=== PATIENT | male | born 1955 | race Caucasian/White ===

== ENCOUNTER 2024-10-01 03:10 | Emergency (ER) | payer MEDICARE, SELFPAY ==
[2024-10-01 03:11] VITALS: PULSE 106
--- NOTE | 2024-10-01 03:13 | EDNOTE_ITS ---
Neuro Symptoms Deficit-RME/HPI General Chief Complaint: Syncope / Near Syncope Stated Complaint: possible syncopal episode Time Seen by Provider: 10/01/24 03:14 Arrival date/time: 10/01/24 03:10 RME / HPI RME / HPI Narrative: Dr. Ambrose?s Main ED Evaluation: 68yo male [place] from home presents to the ED after being found down by his . Per EMS, patient was last seen at 2300, reporting the went to go check on the patient and found him on the ground outside. Patient states he does not remember what happened. Patient is a poor historian and is unable to provide any history. Related Data Allergies Allergy/AdvReac Type Severity Reaction Status Date / Time No Known Allergies Allergy Verified 10/01/24 03:40 Review of Systems Review of Systems Systems Reviewed: All systems reviewed, normal except as documented Past Medical History Social History SMOKING STATUS: Never smoker ED Exam Narrative Physical exam: GENERAL APPEARANCE: alert and oriented x 3, has difficulty following commands and sometimes is unable to follow them at all; has repetitive questions and amnesia of the incident, gives 1-2 word answers, no acute distress VITALS: All vitals were reviewed and the pulse ox is 95% on room air, which is normal according to my interpretation. HEENT: Normocephalic, atraumatic; pupils equal, round, reactive to light; EOMI; no nystagmus; mucous membranes pink, moist; oropharynx clear NECK: Supple LUNGS: CTABL; no wheezes, no rales, no rhonchi HEART: Regular rate, regular rhythm; normal S1, S2; no murmurs ABDOMEN: non distended; normal BS; soft, no tenderness, no guarding, no rebound; no masses, no organomegaly, no hernia BACK: no CVA tenderness EXTREMITIES: atraumatic; no edema NEUROLOGIC: awake; alert and oriented x4; cranial nerves II-XII grossly intact; mild weakness of the LLE and LUE; no facial droop PSYCHIATRIC: appropriate mood and affect SKIN: warm, dry, normal color; no rashes Course Course Course Narrative: CXR is ordered to r/o pneumothorax. Quality Measures Suspected type of Stroke: Hemmorrhagic Tenecteplase given: Reason(s) TPA not given: Unable to determine eligibility not given stroke Orders Category Date Time Status Bedside Blood Glucose NOW Care 10/01/24 03:15 Completed Electronic Systems Security Assessment NOW Care 10/01/24 03:15 Completed Continuous Pulse Oximetry NOW Care 10/01/24 03:15 Completed EKG (ED ONLY) *Do not use* NOW Care 10/01/24 03:15 Completed In and Out Catheter NEEDED Care 10/01/24 03:15 Completed Insert IV NOW Care 10/01/24 03:15 Completed Miscellaneous Nursing Order NOW Care 10/01/24 03:16 Completed NIH Stroke Scale now Care 10/01/24 03:15 Completed NPO NOW Care 10/01/24 03:15 Completed Nurse Swallow Screen x1 Care 10/01/24 03:15 Completed Consult to Neurology / Tele-Neurology Routine Cons 10/01/24 03:[address] stroke protocol Stat Exams 10/01/24 03:15 Taken EKG (ED Only) Stat Exams 10/01/24 03:15 Ordered XR chest 1V portable Stat Exams 10/01/24 03:16 Taken Alcohol, Blood Medical Stat Lab 10/01/24 03:44 Completed B-Type Natriuretic Peptide Stat Lab 10/01/24 03:44 Completed CBC Stat Lab 10/01/24 03:44 Completed Comprehensive Metabolic Panel Stat Lab 10/01/24 03:44 Completed Magnesium Stat Lab 10/01/24 03:44 Completed Partial Thromboplastin Time Stat Lab 10/01/24 03:44 Completed Prothrombin Time with INR Stat Lab 10/01/24 03:44 Completed Troponin I Stat Lab 10/01/24 03:44 Completed Oxygen Delivery NOW RT 10/01/24 03:15 Completed Vital Signs Vital signs: Vital Signs Pulse Rate 90 10/01/24 03:25 Respiratory Rate 17 10/01/24 03:25 Blood Pressure 128/76 10/01/24 03:25 Pulse Oximetry (%) 100 10/01/24 03:25 Oxygen Delivery Method Room Air 10/01/24 03:25 Neuro Symptoms / Deficit MDM Narrative MDM Narrative:: Scribe Attestation: 10/01/24 Almita Hercules am scribing for and in the presence of Dr. Ambrose. 0313: Stroke alert initiated. 0332: Discussed case with teleneurology regarding consultation at bedside. Discussed patients ED course, exam findings, and radiology results. States to keep the patient's blood pressure below 140 systolically. The patient is not a tPA candidate due to having a bleed. 0338: Spoke with [facility] transfer center, who states to call Dr. Jeffery, the neurosurgeon, and see if he will accept the patient for transfer. 0342: Spoke with Dr. Jeffery, neurosurgeon on-call, who accepts the patient for transfer. Dr. Trevizo accepts the patient for ED-ED transfer. Patient data External records reviewed:: [facility] previous records (Per chart review, patient has no previous ED visits or admissions to this facility.) Clinical information provided by:: patient Social determinants that could affect healthcare access:: none Patient has the following chronic illnesses:: none How is presenting disease/condition affected by chronic disease/condition?: no chronic disease Evaluation data The following diagnostics were reviewed and interpreted by me:: lab results, radiology exam(s) and EKG tracing(s) Lab and/or radiology exams considered but not ordered:: none Interpretation Summary: CXR shows cardiomegaly, no bony abnormalities, no infiltrates, according to my interpretation. EKG done at 0332, NSR, rate of 82, left axis deviation, no ectopy, no acute ischemia, according to my interpretation. Telerad Preliminary Report Draft Patient: ALEJANDRO VAZQUEZ Record#: [id number] Birthdate: 1955 Age/Sex: 68 / M Location: [facility] Attending Dr: Ordering Physician: Date of Service: Procedure(s): Accession Number(s): cc: ~ CT scan of the head without intravenous contrast (axial sections with sagittal and coronal reformats) October 01, 2024 0318 hours Clinical history: Focal neuro deficit, stroke suspected No prior study is available for comparison. Findings: There is an acute subdural hematoma along right anterior falx measuring up to 2.4 cm in maximum thickness with extension to contralateral side. There is a 1.2 x 2.5 cm frontal lobe hematoma (sag 24-/46) with compression of anterior horns of bilateral lateral ventricles. There is intraventricular extension of hemorrhage. Multiple small right frontal lobe hemorrhagic contusions with small right frontal subdural hematoma noted. A 3 mm acute subdural hematoma is noted along posterior falx. There is an acute subarachnoid hemorrhage in the bilateral frontal sulci. There is no evidence of midline shift. There are mild periventricular white matter hypodensities, likely representing chronic small vessel ischemia. There is mild volume loss. There is symmetrical thinning of the bilateral parietal bones versus less likely postoperative changes. The mastoid air cells and the visualized paranasal sinuses are grossly clear. Impression: Acute subdural hematoma along right anterior falx measuring up to 2.4 cm in maxi mum thickness with extension to contralateral side. 1.2 x 2.5 cm frontal lobe hematoma with compression of anterior horns of bilateral lateral ventricles. Multiple small right frontal lobe hemorrhagic contusions with small right frontal subdural hematoma. Intraventricular extension of hemorrhage. 3 mm acute subdural hematoma along posterior falx. Acute subarachnoid hemorrhage at bilateral frontal sulci. Symmetrical thinning of the bilateral parietal bones versus less likely postoperative changes.. Periventricular chronic small vessel ischemia and volume loss. Recommend clinical correlation and follow-up. Discussion Details: Results Discussed With : Dr Ambrose at 03:45 AM 10/01/2024 Report Electronically Signed By: Calvin Morales 10/01/2024 4:02:24 AM Medications / Prescriptions Medications or Prescriptions considered but not ordered:: none Medication administrations:: see above, if any Consultations Consultation(s) initiated? (list below): Yes Consultation #1 (Physician, Specialty, Details): See MDM. Diagnosis Neuro Differential Diagnosis: subarachnoid hemorrhage and other (ischemic CVA, subdural hematoma, hemorrhagic stroke) Most likely diagnosis given after review of the tests above:: see clinical impression below Admission Indicated Admission indicated?: not indicated Explain why admission is indicated or not indicated:: Patient requires a higher [id number]. Admission Request Was there a request for admission?: No Disposition Plan Disposition Plan: Transfer Critical Care Time Critical Care Time Critical Care Time: Yes Total Critical Care Time (min.): 40 Attestation: The high probability of sudden, clinically significant deterioration in the patient?s condition required the highest level of my preparedness to intervene urgently. The services I provided to this patient were to treat and/or prevent clinically significant deterioration. Services included the following: chart data review, reviewing nursing notes and/or old charts, documentation time, jd edwards consultant collaboration regarding findings and treatment options, medication orders and management, direct patient care, vital sign assessments and ordering, interpreting and reviewing diagnostic studies and lab tests. Aggregate critical care time includes only time during which I was engaged in work directly related to the patient?s care, as described above, whether at bedside or elsewhere in the Emergency Department. It did not include time spent performing other reported procedures or the services of residents, students, nurses or physician assistants. Discharge Plan Plan Patient Disposition: [facility] Pt Being Transferred to: [facility] Service Needed for Transfer: Neurosurgery Disposition Comment: Accepted by Dr. Jeffery Problem List Clinical Impression: Intraparenchymal hemorrhage of brain Patient/Caregiver Discharge Instructions Print Language: Bulgarian Stand Alone Forms: Meagan Award Info., Patient Portal Info Letter
--- NOTE | 2024-10-01 03:15 | PC.NURSE ---
PT CAME TO ER FROM HOME BY AMBULANCE, EMS REPORTED THAT PT HAD SYNCOPAL EPISODE, INFORMED EMS THAT PT WAS WORKING ON HIS CAR OUTSIDE, LAST TIME WELL KNOWN IS 2329, PT GOT AT AMBULANCE BAY ,EMS WAS CONCERNED ABOUT PT ARM MOVEMENT, DR. ROBERSON NOTIFIED, STROKE ALERT CALLED. PT IS AWAKE,ALERT,AND RESPONSIVE, NO FACIAL DROOP NOTIFIED. EMS TOOK PT STRAIGHT TO CT WITH RN.
--- NOTE | 2024-10-01 03:15 | XR_ITS ---
Examination: CT brain head without contrast. 2-D sagittal coronal reconstructions Date and time of exam:October 01, 2024 0318 hours INDICATIONS: Patient found down unconscious today with syncopal episode CTDI: vol (mGy):48.6 DLP: (mGycm):1057 Technique: Multiple CT axial sections of the brain have been obtained, 5 mm slice thickness. Contrast has not been administered. 2-D sagittal, coronal reconstructions have been obtained Low dose protocols were performed. One or more of the following dose reduction techniques were used; automated exposure control, adjustment of the mA and/or KV according to patient size, use of iterative reconstruction technique. Findings: Acute subdural hematoma anterior right cerebral falx measuring up to 25 mm in thickness 24 mm right frontal hematoma Hemorrhages ruptured into the ventricular system Smaller bifrontal hemorrhagic contusions Significant mass effect upon the lateral ventricles, axial image 20 secondary to the subdural hemorrhage Smaller subdural hemorrhage along the posterior cerebral falx Subarachnoid hemorrhage frontal sulci Bilateral posterior craniotomy defects No cerebellar tonsillar herniation IMPRESSION: Large acute subdural hematoma anterior cerebral falx as above with significant mass effect Large right frontal hematoma impinging upon the lateral ventricles Extensive intraventricular hemorrhage Subarachnoid hemorrhage frontal sulci
--- NOTE | 2024-10-01 03:16 | XR_ITS ---
Examination: AP chest single view Technique one AP portable supine chest single view Exam date and time: October 01, 2024 0331 hours INDICATIONS: Stroke alert, syncopal episode today. FINDINGS: Mild prominence left ventricle Suspicious for mild pneumonia left base Right lung clear Reduced inspiratory effort IMPRESSION: Suspicious for mild pneumonia left base, differential would include mild aspiration pneumonia
[2024-10-01 03:25] VITALS: BP 128/76; PULSE 90; RESP 17; O2SAT 100
[2024-10-01 03:42] VITALS: RESP 99
[2024-10-01 03:44] VITALS: BP 121/76; PULSE 85; RESP 20; TEMP 36.7; O2SAT 100
[2024-10-01 03:54] LABS: Basophils % (Auto) 0 % (0-2.5); Eosinophils % (Auto) 0 % (0-10); Hematocrit 42.3 % (41.0-53.0); Hemoglobin 14.8 g/dL (13.5-16.0); Immature Granulocytes % (Auto) 0 % (0-0); Immature Granulocytes Auto 0.06 Thou/mm3 (0.00-0.00); Lymphocytes # (Auto) 0.5 Thou/mm3 (1.0-4.8); Lymphocytes % (Auto) 4 % (10-50); Mean Corpuscular Hemoglobin 30.6 pg (25.0-35.0); Mean Corpuscular Volume 88 fL (80-100); Monocytes # (Auto) 0.5 Thou/mm3 (0.0-0.8); Monocytes % (Auto) 3 % (0-12); Neutrophils # (Auto) 13.7 Thou/mm3 (1.8-7.7); Neutrophils % (Auto) 93 % (37-80); Nucleated Red Blood Cell % 0 /100 WBC (0); Platelet Count 158 Thou/mm3 (140-440); RDW Standard Deviation 41.1 fL (35.1-43.9); Red Blood Count 4.83 Miln/mm3 (4.50-5.90); White Blood Count 14.8 Thou/mm3 (3.8-10.6)
--- NOTE | 2024-10-01 03:58 | PC.NURSE ---
[facility] FROM [facility] CALLED AND THIS PT IS ACCEPTED FOR TRANSPORT WITH A ETA OF 0440.
--- NOTE | 2024-10-01 04:03 | PRELIM_ITS ---
CT scan of the head without intravenous contrast (axial sections with sagittal and coronal reformats) October 01, 2024 0318 hours Clinical history: Focal neuro deficit, stroke suspected No prior study is available for comparison. Findings: There is an acute subdural hematoma along right anterior falx measuring up to 2.4 cm in maximum thickness with extension to contralateral side. There is a 1.2 x 2.5 cm frontal lobe hematoma (sag 24-26/46) with compression of anterior horns of bilateral lateral ventricles. There is intraventricular extension of hemorrhage. Multiple small right frontal lobe hemorrhagic contusions with small right frontal subdural hematoma noted. A 3 mm acute subdural hematoma is noted along posterior falx. There is an acute subarachnoid hemorrhage in the bilateral frontal sulci. There is no evidence of midline shift. There are mild periventricular white matter hypodensities, likely representing chronic small vessel ischemia. There is mild volume loss. There is symmetrical thinning of the bilateral parietal bones versus less likely postoperative changes. The mastoid air cells and the visualized paranasal sinuses are grossly clear. Impression: Acute subdural hematoma along right anterior falx measuring up to 2.4 cm in maximum thickness with extension to contralateral side. 1.2 x 2.5 cm frontal lobe hematoma with compression of anterior horns of bilateral lateral ventricles. Multiple small right frontal lobe hemorrhagic contusions with small right frontal subdural hematoma. Intraventricular extension of hemorrhage. 3 mm acute subdural hematoma along posterior falx. Acute subarachnoid hemorrhage at bilateral frontal sulci. Symmetrical thinning of the bilateral parietal bones versus less likely postoperative changes.. Periventricular chronic small vessel ischemia and volume loss. Recommend clinical correlation and follow-up. Discussion Details: Results Discussed With : Dr Ambrose at 03:45 AM 10/01/2024 Report Electronically Signed By: Calvin Morales 10/01/2024 4:02:24 AM [EST]
[2024-10-01 04:13] LABS: Alanine Aminotransferase 19 U/L (10-49); Albumin, Serum 4.3 gm/dL (3.4-4.8); Albumin/Globulin Ratio 1.7 (1.2-2.2); Alcohol, Blood Medical < 3.0 mg/dL (0-10.0); Alkaline Phosphatase 90 U/L (46-116); Anion Gap 8 (7-16); Aspartate Amino Transferase 22 U/L (0-34); BUN/Creatinine Ratio 15 Ratio (12-20); Bilirubin,Total 0.7 mg/dL (0.3-1.2); Blood Urea Nitrogen 19 mg/dL (9-23); Calcium 9.2 mg/dL (8.3-10.6); Calcium (Corrected) 9.2 mg/dL (8.5-10.1); Carbon Dioxide 24.6 mMol/L (20.0-31.0); Chloride 106 mMol/L (98-107); Creatinine (Component) 1.3 mg/dL (0.6-1.3); Globulin 2.6 gm/dL (2.3-3.5); Glucose 132 mg/dL (74-106); Magnesium 1.6 mg/dL (1.6-2.6); Osmolality,Calculated 281 (275-295); Potassium 4.2 mMol/L (3.4-5.1); Sodium 139 mMol/L (136-145); Total Protein 6.9 gm/dL (5.7-8.2); Troponin I < 0.002 ng/mL (0.0-0.045); eGFR 60 See Note
--- NOTE | 2024-10-01 04:14 | ESCONSULT_ITS ---
Tele Neuro Consultation Consultation Date 10/01/24 Most Recent Vital Signs Last Vital Signs Temp 98.0 F 10/01/24 03:44 Pulse 85 10/01/24 03:44 Resp 20 10/01/24 03:44 BP 121/76 10/01/24 03:44 Pulse Ox 100 10/01/24 03:44 O2 Del Method Room Air 10/01/24 03:44 Consultation Narrative [facility] Tele[facility]urology Consult Services Patient Name:???Roc Akhtar Date of :???1955 Identification Number:??? Date of Service:???10/01/2024 03:15:31 Diagnosis:?I61.9 - Intracerebral haemorrhage, unspecified Impression: 68 yo man presenting for evaluation of a fall with some confusion and gene ralized weakness. Found to have a frontal hemorrhage with IVH. Agree with transfer for neurosurgery consultation. Keep BP less than [address] on q1h neurochecks and repeat head CT in 4-6 hours or sooner if he worsens. Recommendation: Laboratory Studies:? INR/PT ? aPTT? CBC Medications:? Hold?antiplatelet?therapy/NSAIDS/Anticoagulation Consultations: ? Need Neurosurgery consultation?STAT Metrics: Last Known Well: 10/01/2019 23:00:00 Dispatch Time: 10/01/2024 03:14:32 Arrival Time: 10/01/2024 03:11:00 Initial Response Time: 10/01/2024 03:18:38Symptoms: weakness. Initial patient interaction: 10/01/2024 03:34:42 NIHSS Assessment Completed: 10/01/2024 03:37:24Patient is not a candidate for Thrombolytic. Thrombolytic Medical Decision: 10/01/2024 03:37:26Patient was not deemed ca ndidate for Thrombolytic because of following reasons: Current intracranial hemorrhage . = Primary Provider Notified of Diagnostic Impression and Management Plan on: 10/01/2024 03:37:00 History of Present Illness:Patient is a 68 year old Male. Patient was brought by EMS for symptoms of weakness. This is a 68 yo man with history of hypertension who presents after his found him after a fall outside. He had been working in his garage on his cars. She last saw him normal at 18:00. When she came home around 23:00, he was still in the garage but seemed off . She later found him a few hours later and called EMS. On head CT, he has what appears to be a frontal hemorrhage with bilateral IVH. ? Past Medical History: ?Hypertension Medications: No Anticoagulant use? No Antiplatelet use Reviewed EMR for current medications Allergies:? NKDA Social History: Patient Is: Smoking: No Family History: There is no family history of premature cerebrovascular disease pertinent to this consultation ROS : 14 Points Review of Systems was performed and was negative except mentioned in HPI. Past Surgical History: There Is No Surgical History Contributory To Today?s Visit ? Examination: BP(128/76),?Pulse(104),?Blood Glucose(119) 1A: Level of Consciousness - Alert; keenly responsive?+ 0 1B: Ask Month and Age - Both Questions Right?+ 0 1C: Blink Eyes & Squeeze Hands - Performs Both Tasks?+ 0 2: Test Horizontal Extraocular Movements - Normal?+ 0 3: Test Visual Kramer - No Visual Loss?+ 0 4: Test Facial Palsy (Use Grimace if Obtunded) - Normal symmetry?+ 0 5A: Test Left Arm Motor Drift - No Drift for 10 Seconds?+ 0 5B: Test Right Arm Motor Drift - No Drift for 10 Seconds?+ 0 6A: Test Left Leg Motor Drift - No Drift for 5 Seconds?+ 0 6B: Test Right Leg Motor Drift - No Drift for 5 Seconds?+ 0 7: Test Limb Ataxia (FNF/Heel-Silva) - No Ataxia?+ 0 8: Test Sensation - Normal; No sensory loss?+ 0 9: Test Language/Aphasia - Normal; No aphasia?+ 0 10: Test Dysarthria - Normal?+ 0 11: Test Extinction/Inattention - No abnormality?+ 0 NIHSS Score:?0 ICH Score: 2 Rinku Coma Score:13-15 (0) Age >= 80:No (0) ICH volume >= 30mL:Yes (+1) Intraventricular hemorrhage:Yes (+1) Infratentorial origin of hemorrhage:No (0) Pre-Morbid Modified Latosha Scale:0 Points = No symptoms at all This consult was conducted in real time using interactive audio and video technology. Patient was informed of the technology being used for this visit and agreed to proceed. Patient located in hospital and provider located at home/office setting. Due to the immediate potential for life-threatening deterioration due to underlying acute neurologic illness, I spent 30 minutes providing critical care. This time includes time for face to face visit via telemedicine, review of medical records, imaging studies and discussion of findings with providers, the patient and/or family. Dr Matthew Norton [facility] For Inpatient follow-up with [facility] physician please call [facility] at . As we are not an outpatient service for any post hospital discharge needs please contact the hospital for assistance. If you have any questions for the [facility] physicians or need to reconsult for clinical or diagnostic changes please contact us via [facility] at . ?
[2024-10-01 04:16] LABS: B-Type Natriuretic Peptide 32 pg/mL (0-100)
[2024-10-01 04:22] VITALS: BP 114/72; PULSE 97; RESP 20; O2SAT 100
[2024-10-01 04:50] LABS: INR 1.1 (0.9-1.3); Partial Thromboplastin Time 21.2 Seconds (22.0-36.0); Prothrombin Time 11.4 Seconds (9.0-12.2)
== END 2024-10-01 04:45 | disposition short-term general hospital (02) ==
LOC: SERX 04:16
PROVIDERS: Emergency Provider Emergency Medicine
DX: S06.5X9A Traumatic subdural hemorrhage with loss of consciousness of unspecified duration, initial encounter (principal); S06.6X9A Traumatic subarachnoid hemorrhage with loss of consciousness of unspecified duration, initial encounter; W19.XXXA Unspecified fall, initial encounter; I10 Essential (primary) hypertension
CPT/HCPCS: 36415; 70450; 71045; 80053; 80307; 80320; 81001; 83735; 83880; 84484; 85025; 85610; 85730; 87086; 93005; 99291; G0480

== ENCOUNTER → 2024-11-20 | Outpatient (CLI) | payer MEDICARE, SELFPAY ==
--- NOTE | 2024-11-20 10:00 | XR_ITS ---
Examination: CT brain head without contrast. 2-D sagittal coronal reconstructions Date and time of exam:November 20, 2024 0943 hours Comparison October 01, 2024 INDICATIONS: CT brain scan August 31, 2024 large acute subdural hematoma anterior cerebral falx, large right frontal hematoma impinging upon the lateral ventricles, extensive intraventricular hemorrhage CTDI: vol (mGy):49 DLP: (mGycm):1106 Technique: Multiple CT axial sections of the brain have been obtained, 5 mm slice thickness. Contrast has not been administered. 2-D sagittal, coronal reconstructions have been obtained Low dose protocols were performed. One or more of the following dose reduction techniques were used; automated exposure control, adjustment of the mA and/or KV according to patient size, use of iterative reconstruction technique. Findings: Bilateral posterior craniotomy defects Large area of encephalomalacia at the prior right frontal hemorrhage site with persistent mass effect upon the anterior right lateral ventricle No interval acute hemorrhage Ventricles are mildly enlarged No midline shift IMPRESSION: Large area of encephalomalacia at the prior right frontal hemorrhage site, with truncation of the anterior right lateral ventricle Recommend CT scan brain post intravenous contrast follow-up to exclude underlying right frontal lobe neoplasm
== END | disposition home or self-care (01) ==
PROVIDERS: PCP Hospitalist; Referring Provider Hospitalist; Visit Provider Hospitalist
DX: G93.89 Other specified disorders of brain (principal)
CPT/HCPCS: 70450

== ENCOUNTER 2024-12-07 15:51 | Inpatient (IN) | payer MEDICARE, SELFPAY ==
[2024-12-07 15:55] VITALS: BP 123/71; PULSE 77; RESP 18; TEMP 37.1; O2SAT 94
[2024-12-07 15:56] VITALS: BMI 24.7
[2024-12-07 16:16] VITALS: PULSE 95; RESP 18; O2SAT 94
--- NOTE | 2024-12-07 16:20 | PD.EDADULT ---
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 He is in a rehab facility currently following his stroke. He apparently has an appointment with the wound care doctor on . He states his pain is currently a 5/10 but denies need for pain medication.. He denies any fever or chills, nausea or vomiting, dysuria or frequency, abdominal pain, or difficulty with bowel movements. Patient is a full code according to his recent POLST dated 11/02/2024. Related Data Allergies Allergy/AdvReac Type Severity Reaction Status Date / Time No Known Allergies Allergy Verified 10/01/24 03:40 Review of Systems Review of Systems Systems Reviewed: All systems reviewed, normal except as documented Past Medical History Past Medical History CARDIAC: Positive Cardiac Disorders, Myocardial Infarction and Hypertension; Negative Congestive Heart Failure RESPIRATORY: Negative Chronic Obstructive Pulmonary Disease (COPD) GENITOURINARY: Negative Renal Disease ENDOCRINE: Negative Diabetes Mellitus Type 1 or Diabetes Mellitus Type 2 OTHER HISTORY: Negative Autoimmune Disease Family History FAMILY HISTORY: Negative Family Psychiatric Problems, Family Respiratory Disorders, Family Cardiac Disorders, Family Gastrointestinal Problems, Family Cancer, Family Surgery or Family Anesthesia Reaction Social History SMOKING STATUS: Never smoker ED Exam Narrative Physical exam: Alert and oriented, nontoxic-appearing, afebrile, 69-year-old male, no acute distress, denies pain, laying on left side. Vital signs blood pressure 123/71, pulse 77, respirations 18 and nonlabored, temperature 98.8, O2 sat 94% on room air. Lungs are clear, regular rate and rhythm without murmurs, abdomen is soft and nontender. Left buttocks without erythema or skin breakdown. Medial right buttocks with approximate 10 cm x 12 cm area of induration with minimal central fluctuance. Cellulitis noted surrounding area of induration approximately 3 to 4 cm. General Limitations: Present physical limitation (Left-sided deficit due to recent CVA.) Course Course Course Narrative: Initial vital signs blood pressure 123/71, pulse 77, respirations 18 and nonlabored, temp 98.8, O2 sat 94% on room air. Labs reveal an elevated white count of 20.6, normal hemoglobin, mildly low hematocrit of 39.3, low platelet level of 119, ANC elevated at 16.7. CMP reveals a low sodium of 130, normal potassium, chloride, CO2, gap, normal renal function. Glucose is mildly elevated at 132, lactic acid is elevated at 2.3, CRP is elevated at 3.5, procalcitonin is normal at 0.07, AST/ALT are normal. Total bili is normal at 0.6. Patient was given Zosyn 3.375 g IV as well as vancomycin [address] of the abdomen and pelvis with contrast was ordered at 1936 for evaluation of the abscess and to rule out the need for surgical intervention, however by 20:[address] has not been performed. Discussed case with Dr. James, hospitalist for admission. He was in to evaluate the patient and determined he would discuss the case with his attending. After his discussion with his attending, they would like to delay admission until the completion of the CT abdomen and pelvis. Care of patient transferred to Dr. Peres at end of shift. Hospitalist service knows to contact Dr. Peres. Quality Measures Current suspected stage: sepsis Possible source: skin/soft tissue Blood cultures ordered: yes Antibiotic ordered: Yes Pertinent labs: 12/07/24 12/07/24 12/07/24 16:24 16:44 22:25 Lactic Acid 2.3 H mMol/L 1.3 mMol/L (0.4-2.0) (0.4-2.0) Procalcitonin 0.07 ng/ml (0.0-0.49) sepsis (White count 20.6, lactic 2.3, CRP 3.5, procalcitonin 0.07.) Orders Category Date Time Status CT Screening NOW Care 12/07/24 19:[address] Screening X1 Care 12/07/24 19:36 Active Incision & Drainage set up NOW Care 12/07/24 16:27 Active Insert IV NOW Care 12/07/24 16:[address] abdomen pelvis w con Stat Exams 12/07/24 19:36 Completed Blood Culture (Lab) Stat Lab 12/07/24 16:49 Received CBC Stat Lab 12/07/24 16:44 Completed CMP [Comprehensive Metabolic Panel] Stat Lab 12/07/24 16:44 Completed CRP [C-Reactive Protein] Stat Lab 12/07/24 16:44 Completed Lactic Acid [Lactate (Lactic Acid)] Stat Lab 12/07/24 16:24 Completed Lactic Acid, 3 HR Stat Lab 12/07/24 22:25 Completed Procalcitonin Stat Lab 12/07/24 16:44 Completed Wound Culture and Gram Stain Stat Lab 12/07/24 16:28 Ordered Lidocaine 1% 20 ml [Xylocaine 1% 20 ML] Med 12/07/24 16:23 Discontinued 10 ml INFL X1 ONE Piper/Tazo 3.375 gm Premix [Zosyn] Med 12/07/24 16:30 Discontinued 3.375 gm in 50 ml IV X1 Vancomycin/Ns 1 gm Ivpb 200 ml Med 12/07/24 16:29 Discontinued IV X1 Reevaluation(s) Reevaluation #1: Patient is currently receiving his second antibiotic. He was advised of need for admission due to elevated white count, elevated lactic and CRP. Patient will need CT of the abdomen and pelvis with contrast for evaluation of right medial buttocks abscess. 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 He is in a rehab facility currently following his stroke. He apparently has an appointment with the wound care doctor on . He states his pain is currently a 5/10 but denies need for pain medication.. He denies any fever or chills, nausea or vomiting, dysuria or frequency, abdominal pain, or difficulty with bowel movements. Alert and oriented, nontoxic-appearing, 69-year-old male, no acute distress, denies pain, laying on left side. Vital signs blood pressure 123/71, pulse 77, respirations 18 and non-labored, temperature 98.8, O2 sat 94% on room air. Lungs are clear, regular rate and rhythm without murmurs, abdomen is soft and nontender. Left buttocks without erythema or skin breakdown. Medial right buttocks with approximate 10 cm x 12 cm area of induration with minimal central fluctuance. Cellulitis noted surrounding area of induration approximately 3 to 4 cm. Initial vital signs blood pressure 123/71, pulse 77, respirations 18 and nonlabored, temp 98.8, O2 sat 94% on room air. Labs reveal an elevated white count of 20.6, normal hemoglobin, mildly low hematocrit of 39.3, low platelet level of 119, ANC elevated at 16.7. CMP reveals a low sodium of 130, normal potassium, chloride, CO2, gap, normal renal function. Glucose is mildly elevated at 132, lactic acid is elevated at 2.3, CRP is elevated at 3.5, procalcitonin is normal at 0.07, AST/ALT are normal. Total bili is normal at 0.6. Repeat lactic acid is 1.3. Patient was given Zosyn 3.375 g IV as well as vancomycin [address] of the abdomen and pelvis with contrast was ordered at 1936 for evaluation of the abscess and to rule out the need for surgical intervention, however by 21:[address] has not been performed. Discussed case with Dr. James, hospitalist for admission. He was in to evaluate the patient and determined he would discuss the case with his attending. After his discussion with his attending, they would like to delay admission until the completion of the CT abdomen and pelvis. Care of patient transferred to Dr. Peres at end of shift. Hospitalist service knows to contact Dr. Peres. Patient is a full code according to his recent POLST dated 11/02/2024. CT of the abdomen and pelvis with contrast IMPRESSION: Perianal inflammation which extends to the inter gluteal fold with cellulitis primarily the right buttock region, no fluid-filled drainable abscess. Incidental note right hydrocele, consider testicular sonography follow-up Contacted Dr. Bardales for advisement of plan, whether the patient can be discharged back to his rehab facility on oral antibiotics or admitted for IV antibiotics. She indicates the patient needs to be admitted for IV antibiotics. Clinical Information Provided by patient and spouse Medical Records Reviewed detention Meds/Rx Considered, not Ordered None Labs/Rad/Tests considered, not Ordered None Chronic Illness/Social Conditions which may negatively complicate care or outcome(s)-explain: other (Recent traumatic right sided hemorrhagic CVA with left-sided deficits.) EKG EKG not done Lab Interpretation Labs: interpreted by ms Lab(s) interpretation(s): Labs reveal an elevated white count of 20.6, normal hemoglobin, mildly low hematocrit of 39.3, low platelet level of 119, ANC elevated at 16.7. CMP reveals a low sodium of 130, normal potassium, chloride, CO2, gap, normal renal function. Glucose is mildly elevated at 132, lactic acid is elevated at 2.3, CRP is elevated at 3.5, procalcitonin is normal at 0.07, AST/ALT are normal. Total bili is normal at 0.6. Patient was given Zosyn 3.375 g IV as well as vancomycin 1 g IV. Imaging Imaging interpretation: see narrative above Radiology reports / interpretation(s): CT of the abdomen and pelvis with contrast IMPRESSION: Perianal inflammation which extends to the inter gluteal fold with cellulitis primarily the right buttock region, no fluid-filled drainable abscess. Incidental note right hydrocele, consider testicular sonography follow-up Medication Administration(s) Medication Administration History Discontinued Medications Vancomycin/Sodium Chloride (Vancomycin/Ns 1 Gm Ivpb) 200 mls @ 120 mls/hr IV X1 ONE Stop: 12/07/24 18:08 Last Admin: 12/07/24 18:32 Dose: 120 mls/hr Documented By: PRASHANTH Piperacillin/Tazobactam/Dextrose (Zosyn) 3.375 gm in 50 mls @ 100 mls/hr IV X1 ONE Stop: 12/07/24 16:59 Last Infusion: 12/07/24 17:30 Dose: Infused Documented By: Admin: 12/07/24 16:54 Dose: 100 mls/hr Documented By: SAVANNAH Lidocaine HCl (Lidocaine Hcl 1% 20 Ml Vial) 10 ml INFL X1 ONE Stop: 12/07/24 16:24 Last Admin: 12/07/24 16:56 Dose: 10 ml Documented By: SAVANNAH Vancomycin 1 g IV and Zosyn 3.375 g IV Consultations/Discussions re: Management Consult #1: Date/time: 12/07/24 10:49 pm Physician, specialty, service, details: Discussed case with hospitalist, Dr. James. He was in to evaluate the patient and determined he would discuss the case with his attending. After his discussion with his attending, they would like to delay admission until the completion of the CT abdomen and pelvis. Care of patient transferred to Dr. Peres at end of shift. Hospitalist service knows to contact Dr. Peres. Consult #2: Date/time: 12/08/24 12:12 am Physician, specialty, service, details: Contacted Dr. Bardales for advisement of plan, whether the patient can be discharged back to his rehab facility on oral antibiotics or admitted for IV antibiotics. She indicates the patient needs to be admitted for IV antibiotics. Diagnosis Differential diagnosis: Pressure ulcer, abscess w cellulitis, abscess wo cellulitis, fistula Differential dx and/or dx ruled out: Pressure ulcer, abscess without cellulitis Most likely dx, and/or detailed dx discussion: Right medial buttocks abscess with cellulitis.
[2024-12-07 16:48] VITALS: BP 114/61; PULSE 76; RESP 18; TEMP 36.8
[2024-12-07] MEDS: PIPER/TAZO 3.375 GM PREMIX 3.375 GM/50 ML BAG IV (16:54)
[2024-12-07] MEDS: LIDOCAINE HCL 1% 20 ML VIAL 10 ML INFL (16:56)
[2024-12-07 17:04] LABS: Lactate (Lactic Acid) 2.3 mMol/L (0.4-2.0)
[2024-12-07 17:12] LABS: Basophils # (Auto) 0.1 Thou/mm3 (0.0-0.2); Basophils % (Auto) 0 % (0-2.5); Eosinophils # (Auto) 0.0 Thou/mm3 (0.0-0.5); Eosinophils % (Auto) 0 % (0-10); Hematocrit 39.3 % (41.0-53.0); Hemoglobin 14.3 g/dL (13.5-16.0); Immature Granulocytes Auto 1.04 Thou/mm3 (0.00-0.00); Lymphocytes # (Auto) 2.0 Thou/mm3 (1.0-4.8); Lymphocytes % (Auto) 10 % (10-50); Mean Corpuscular HGB Conc 36.4 g/dl (31.0-37.0); Mean Corpuscular Hemoglobin 30.9 pg (25.0-35.0); Mean Corpuscular Volume 85 fL (80-100); Monocytes # (Auto) 0.8 Thou/mm3 (0.0-0.8); Monocytes % (Auto) 4 % (0-12); Neutrophils # (Auto) 16.7 Thou/mm3 (1.8-7.7); Neutrophils % (Auto) 81 % (37-80); Nucleated Red Blood Cell # 0.00 Thou/mm3 (0.00-0.00); Nucleated Red Blood Cell % 0 /100 WBC (0); Platelet Count 119 Thou/mm3 (140-440); RDW Standard Deviation 45.1 fL (35.1-43.9); Red Blood Count 4.63 Miln/mm3 (4.50-5.90); White Blood Count 20.6 Thou/mm3 (3.8-10.6)
[2024-12-07 17:33] LABS: Alanine Aminotransferase 48 U/L (10-49); Albumin, Serum 3.2 gm/dL (3.4-4.8); Albumin/Globulin Ratio 1.3 (1.2-2.2); Alkaline Phosphatase 99 U/L (46-116); Anion Gap 7 (7-16); Aspartate Amino Transferase 22 U/L (0-34); BUN/Creatinine Ratio 20 Ratio (12-20); Bilirubin,Total 0.6 mg/dL (0.3-1.2); Blood Urea Nitrogen 12 mg/dL (9-23); C-Reactive Protein 3.5 mg/dL (0.0-0.9); Calcium 8.3 mg/dL (8.3-10.6); Calcium (Corrected) 8.9 mg/dL (8.5-10.1); Carbon Dioxide 24.1 mMol/L (20.0-31.0); Chloride 99 mMol/L (98-107); Creatinine (Component) 0.6 mg/dL (0.6-1.3); Estimated Creatinine Clearance 120.0 mL/min (>60); Globulin 2.4 gm/dL (2.3-3.5); Glucose 132 mg/dL (74-106); Osmolality,Calculated 262 (275-295); Potassium 4.2 mMol/L (3.4-5.1); Procalcitonin 0.07 ng/ml (0.0-0.49); Sodium 130 mMol/L (136-145); Total Protein 5.6 gm/dL (5.7-8.2); eGFR > 60 See Note
[2024-12-07 18:22] VITALS: BP 121/65; PULSE 67; RESP 18; TEMP 37.1; O2SAT 92
[2024-12-07] MEDS: VANCOMYCIN/NS 1 GM IVPB 200 ML IV (18:32)
--- NOTE | 2024-12-07 19:36 | XR_ITS ---
Examination: CT abdomen with intravenous contrast CT pelvis with intravenous contrast 2-D coronal reconstructions 2-D sagittal reconstructions Date and time of exam:December 07, 2024 2255 hours INDICATIONS: Right medial buttock redness swelling and pain today. CTDI: vol (mGy) 9.07 DLP: (mGycm) 635 Technique: Multiple axial sections of the abdomen and pelvis have been obtained. 64 slice high-resolution scanner used. 3 mm axial sections have been obtained, post intravenous injection 60 cc [id number] 2-D sagittal, coronal reconstructions obtained. Low dose protocols were performed. One or more of the following dose reduction techniques were used; automated exposure control, adjustment of the mA and/or KV according to patient size, use of iterative reconstruction technique. Findings: No focal liver or splenic lesions No gallstones No pancreatic or adrenal mass No renal or ureteral calculi, no hydronephrosis Aorta normal in size No bowel obstruction No pericecal inflammatory change Colonic diverticulosis Abundant air and stool in the rectosigmoid Urinary bladder intact Normal seminal vesicles Mild prostatomegaly Perianal inflammation which extends to the intergluteal fold with cellulitis primarily the right buttock region No raghav fluid filled abscess Bladder is intact IMPRESSION: Perianal inflammation which extends to the inter gluteal fold with cellulitis primarily the right buttock region, no fluid-filled drainable abscess Incidental note right hydrocele, consider testicular sonography follow-up
[2024-12-07 20:06] LABS: Reflex Lactate? Y
[2024-12-07 21:05] VITALS: BP 115/70; PULSE 88; RESP 18; TEMP 37; O2SAT 95
[2024-12-07 22:31] LABS: Lactic Acid, 3 HR 1.3 mMol/L (0.4-2.0)
[2024-12-08] VITALS (7 sets, daily range): BP systolic 97–136; BP diastolic 72–98; PULSE 86–119; RESP 16–94; TEMP 36.1–36.8; O2SAT 91–95; BMI 27.1
--- NOTE | 2024-12-08 00:34 | ESHP_ITS ---
Documentation for date of: 12/08/24 [facility] History of Present Illness Chief complaint: R buttock pain History of present illness: 69-year-old male with past medical history of hypertension, hyperlipidemia, CAD s/p 2 stents, and recent intracranial hemorrhage on 10/01/2024 came into the ED with complaints of buttocks pain. Patient stated that today he started having some pain on his coccygeal area and decided to come to the ED. Patient states he just noticed today and that he has not had any fevers, chills, sweats, purulent discharge, rectal pain, pain with defecation, or has not noticed any staining on the undergarments. Patient states that since his intracranial hemorrhage he has been mostly in bed and is currently at a rehab center getting physical therapy. On assessment patient does appear to have a 10 x 12 cm indurated mass superiorly and distally to the gluteal cleft, which was not tender on palpation and was mobile. The mass was nonfluctuating and no drainage was seen with palpation. There was some minor blood tinge and possible pus, but seems most likely from friction then actual discharge from the mass. Patient appeared nontoxic and has not had any fevers nor has had any systematic inflammatory response. Otherwise patient has no new complaints at this time. Denies having any chest pain, shortness of breath, new neurological deficits, abdominal pain, or nausea or vomiting. ED course: Initially came in afebrile and normotensive. Initial labs were evaluated for leukocytosis (20.6), lactic acidosis (2.3 and downtrended to 1.3), elevated CRP (3.5), and negative procalcitonin. Initial imaging included abdomen/pelvis CT which showed perianal inflammation which extends to the inter gluteal fold with cellulitis primarily the right buttock region, no fluid-filled drainable abscess. ED consulted surgery who recommended admission for IV abx. PMH: As above Medications: Patient states that he takes aspirin 81 mg, rest of medication pending reconciliation Social Hx: Denies any illicit drugs, smoking, admits social drinking Surgical Hx: Stents and appendectomy Review of Systems Review of Systems Systems Reviewed: All systems reviewed, normal except as documented Past Medical History Past Medical History CARDIAC: Positive Cardiac Disorders, Myocardial Infarction and Hypertension; Negative Congestive Heart Failure RESPIRATORY: Negative Chronic Obstructive Pulmonary Disease (COPD) GENITOURINARY: Negative Renal Disease ENDOCRINE: Negative Diabetes Mellitus Type 1 or Diabetes Mellitus Type 2 OTHER HISTORY: Negative Autoimmune Disease Family History FAMILY HISTORY: Negative Family Psychiatric Problems, Family Respiratory Disorders, Family Cardiac Disorders, Family Gastrointestinal Problems, Family Cancer, Family Surgery or Family Anesthesia Reaction Social History SMOKING STATUS: Never smoker Exam Vital Signs Temp Pulse Resp BP Pulse Ox O2 Del Method O2 Flow Rate 98.6 F 88 18 115/70 95 Nasal Cannula 2 12/07/24 21:05 12/07/24 21:05 12/07/24 21:05 12/07/24 21:05 12/07/24 21:05 12/07/24 21:05 12/07/24 21:05 Narrative Exam General: A/O x3, no acute distress Eyes: PERRL, EOMI. Anicteric, vision grossly intact. Ears: No ear pain, no ear discharge, Hearing grossly intact. Nose: No nasal discharge. Mouth/Throat: Moist mucous membranes, no redness, no lesions. Neck: Neck supple, non-tender, no cervical lymphadenopathy. Lungs: Clear SHIVA to auscultation and percussion, No accessory muscle use. Cardio: Normal S1/S2, regular rhythm, no murmurs, no JVD Abdomen: Soft, non-tender, no palpable masses, peristalsis present, no guarding or rebound. Extremities: Symmetrical, no significant deformities, no peripheral edema , non-tender, peripheral pulses presents. Skin: No rashes, no lesions, warm to touch, 10x12 cm indurated mass nonfluctuating at the R side of the intergluteal cleft. Neuro: l sided weakness compared to the R side, No facial asymmetry, No sensory deficits, able to follow commands and move all extremities Psych: Slow response Results: Labs 12/07/24 16:44 12/07/24 16:44 Labs: Short CBC 12/07/24 Range/Units 16:44 WBC 20.6 H (3.8-10.6) Thou/mm3 Hgb 14.3 (13.5-16.0) g/dL Hct 39.3 L (41.0-53.0) % Plt Count 119 L (140-440) Thou/mm3 BMP 12/07/24 16:44 Sodium 130 L Potassium 4.2 Chloride 99 Carbon Dioxide 24.1 BUN 12 Creatinine 0.6 Glucose 132 H Calcium 8.3 Liver Function 12/07/24 Range/Units 16:44 Total Bilirubin 0.6 (0.3-1.2) mg/dL AST 22 (0-34) U/L ALT 48 (10-49) U/L Alkaline Phosphatase 99 (46-116) U/L Albumin 3.2 L (3.4-4.8) gm/dL Quality Measures Quality Measures sepsis (White count 20.6, lactic 2.3, CRP 3.5, procalcitonin 0.07.) Current suspected stage: ruled out Possible source: skin/soft tissue Blood cultures ordered: yes Antibiotic ordered: Yes Advance care planning discussed with:: patient Medications Home Medications and Allergies Allergies Allergy/AdvReac Type Severity Reaction Status Date / Time No Known Allergies Allergy Verified 10/01/24 03:40 Visit Medications Acetaminophen (Acetaminophen 325 Mg Tablet) 650 mg PO Q6H PRN PRN Reason: Fever >100.4 Stop: 01/07/25 00:23 Acetaminophen (Acetaminophen 325 Mg Tablet) 650 mg PO Q6H PRN PRN Reason: PAIN SCALE 1-3 (mild Stop: 01/07/25 00:23 Hydrocodone Bitart/Acetaminophen (Hydrocodone/Apap 5/325 Tablet) 1 tab PO Q4HR PRN PRN Reason: PAIN SCALE 4-6 (Moderate Stop: 12/13/24 00:23 Sodium Chloride (Ns) 1,000 mls @ 999 mls/hr IV .Q1H1M ONE Stop: 12/08/24 01:15 Sodium Chloride (Ns) 1,000 mls @ 75 mls/hr IV .[id number] IZABEL Stop: 12/08/24 13:49 Piperacillin/Tazobactam/Dextrose (Zosyn) 50 mls @ 100 mls/hr IV Q8HR IZABEL Stop: 12/15/24 00:31 Ondansetron HCl (Ondansetron Inj 2 Mg/Ml Inj 2 Ml) 4 mg IVP Q6H PRN; Protocol PRN Reason: NAUSEA OR VOMITING Stop: 01/07/25 00:23 Pharmacy Consult (Vancomycin Pharmacy To Dose 1 Each Each) 1 each IV QDAY IZABEL Stop: 01/07/25 08:59 Discontinued Medications Vancomycin/Sodium Chloride (Vancomycin/Ns 1 Gm Ivpb) 200 mls @ 120 mls/hr IV X1 ONE Stop: 12/07/24 18:08 Last Admin: 12/07/24 18:32 Dose: 120 mls/hr Piperacillin/Tazobactam/Dextrose (Zosyn) 3.375 gm in 50 mls @ 100 mls/hr IV X1 ONE Stop: 12/07/24 16:59 Last Infusion: 12/07/24 17:30 Dose: Infused Lidocaine HCl (Lidocaine Hcl 1% 20 Ml Vial) 10 ml INFL X1 ONE Stop: 12/07/24 16:24 Last Admin: 12/07/24 16:56 Dose: 10 ml Assessment & Plan Plan 69-year-old male with past medical history of hypertension, hyperlipidemia, CAD s/p 2 stents, and recent intracranial hemorrhage on 10/01/2024 seen on 12/08/2024 for right buttock cellulitis #Right buttock cellulitis #Leukocytosis #Lactic acidosis, resolved Patient came in with initial complaints of pain in the right buttocks Abdomen/pelvis CT showed perianal inflammation which extends to the inter gluteal fold with cellulitis primarily the right buttock region, no fluid-filled drainable abscess. In the ED patient received vancomycin and Zosyn x 1 Negative acid was 2.3 and downtrended to 1.3 WBCs were 20.6 Patient did not have any fevers, tachycardia, or any signs of systemic inflammatory response other than WBC elevation. Surgery was consulted and recommended IV Abx Plan: Vanco and Zosyn Blood cultures ordered Wound care IV fluids Frequent patient repositioning Surgery consulted, appreciate recommendations Chronic disease: #Hx of hypertension #Hx of CAD s/p stents #Hx of ICH Blood pressure has been stable since came into the ED. Pending medication reconciliation Disposition: Patient admitted to med surg for R buttock cellulitis. Diet: Cardiac GI prophylaxis: not indicated DVT prophylaxis: SCDs due to recent ICH Code: Full Case disclosed with Attending Dr. Negin Carrizales PGY1 Disclaimer: Even though this this note was dictated by speech recognition and even though it was carefully revised there may still be minor errors in co founder and president due to voice recognition software. Attending Provider Attestation/Addendum 69-year-old male patient who came from a intermediate was evaluated for right buttock lesion. The patient has leukocytosis. The patient had a CT scan showing perianal inflammation extending into the gluteal fold particularly affecting the right buttock area. The patient has previous right frontal hemorrhagic stroke. He said he is on regular diet. He is not losing weight. The patient will receive IV antibiotic treatment for right buttock lesion. Surgical evaluation was requested. I discussed with and supervised the resident physician who took care of this patient. I agree with the assessment and plan as above.
--- NOTE | 2024-12-08 01:58 | PC.NURSE ---
Report called to floor nurse, JONN De Leon
[2024-12-08] MEDS: SODIUM CHLORIDE 0.9% 1000 ML 1,000 ML 999 ML IV (02:30)
[2024-12-08] MEDS: SODIUM CHLORIDE 0.9% 1000 ML 1,000 ML 75 ML IV (04:38)
[2024-12-08] MEDS: PIPER/TAZO 3.375 GM PREMIX 3.375 GM/50 ML BAG IV ×2 (05:41→13:22)
[2024-12-08 05:51] LABS: Basophils # (Auto) 0.1 Thou/mm3 (0.0-0.2); Basophils % (Auto) 0 % (0-2.5); Eosinophils # (Auto) 0.1 Thou/mm3 (0.0-0.5); Eosinophils % (Auto) 0 % (0-10); Hematocrit 40.2 % (41.0-53.0); Hemoglobin 14.3 g/dL (13.5-16.0); Immature Granulocytes Auto 0.79 Thou/mm3 (0.00-0.00); Lymphocytes # (Auto) 2.5 Thou/mm3 (1.0-4.8); Lymphocytes % (Auto) 14 % (10-50); Mean Corpuscular HGB Conc 35.6 g/dl (31.0-37.0); Mean Corpuscular Hemoglobin 30.8 pg (25.0-35.0); Mean Corpuscular Volume 87 fL (80-100); Monocytes # (Auto) 0.8 Thou/mm3 (0.0-0.8); Monocytes % (Auto) 4 % (0-12); Neutrophils # (Auto) 13.2 Thou/mm3 (1.8-7.7); Neutrophils % (Auto) 76 % (37-80); Nucleated Red Blood Cell # 0.00 Thou/mm3 (0.00-0.00); Nucleated Red Blood Cell % 0 /100 WBC (0); Platelet Count 121 Thou/mm3 (140-440); RDW Standard Deviation 47.2 fL (35.1-43.9); Red Blood Count 4.64 Miln/mm3 (4.50-5.90); White Blood Count 17.3 Thou/mm3 (3.8-10.6)
[2024-12-08 06:18] LABS: Glucose Estimated Average 105 mg/dL (80-131); Hemoglobin A1C 5.3 % Hgb (4.8-6.0)
[2024-12-08 06:31] LABS: Alanine Aminotransferase 41 U/L (10-49); Albumin, Serum 3.2 gm/dL (3.4-4.8); Albumin/Globulin Ratio 1.4 (1.2-2.2); Alkaline Phosphatase 81 U/L (46-116); Anion Gap 7 (7-16); Aspartate Amino Transferase 17 U/L (0-34); BUN/Creatinine Ratio 17 Ratio (12-20); Bilirubin,Total 0.7 mg/dL (0.3-1.2); Blood Urea Nitrogen 10 mg/dL (9-23); Calcium 8.3 mg/dL (8.3-10.6); Calcium (Corrected) 8.9 mg/dL (8.5-10.1); Carbon Dioxide 25.1 mMol/L (20.0-31.0); Cardiac Risk Estimate 2.0 RATIO (4.0-6.7); Chloride 102 mMol/L (98-107); Cholesterol 103 mg/dL (132-200); Creatinine (Component) 0.6 mg/dL (0.6-1.3); Estimated Creatinine Clearance 120.0 mL/min (>60); Globulin 2.3 gm/dL (2.3-3.5); Glucose 87 mg/dL (74-106); HDL Cholesterol 52 mg/dL (40-60); LDL Cholesterol,Calculated 27 mg/dL (0-130); Magnesium 2.0 mg/dL (1.6-2.6); Osmolality,Calculated 266 (275-295); Potassium 3.9 mMol/L (3.4-5.1); Sodium 134 mMol/L (136-145); Total Protein 5.5 gm/dL (5.7-8.2); Triglycerides 122 mg/dL (30-150); eGFR > 60 See Note
--- NOTE | 2024-12-08 08:46 | PD.SURCONS ---
HPI Consult details History of present illness: 69M with HTN, HLD, CAD s/p stenting, CVA 09/2024 who presented with pain at the gluteus. Pt denies any pain at the moment and is unsure if he has had any drainage. Workup shows WBC 20 which downtrended to 17, and CT showed perianal inflammation extending to the gluteal fold with cellulitis primarily in the right buttock region but no fluid filled drainable abscess PMH: HTN, HLD, CAD, CVA with left sided weakness PSHx: Cardiac stenting, appendectomy Meds: includes ASA Allergies: NKDA Review of Systems Review of Systems ROS Unobtainable: All systems reviewed & no additional complaints except as documented Meds Home Medications and Allergies Home Medications ?Medication ?Instructions ?Recorded ?Confirmed ?Type acetaminophen 325 mg tablet 650 mg PO Q6H PRN pain 12/08/24 12/08/24 History (Aminofen) acetaminophen 500 mg tablet 500 mg PO Q8HR PRN pain 12/08/24 12/08/24 History (Acetaminophen Extra Strength) atenolol 25 mg tablet 25 mg PO Q24H 12/08/24 12/08/24 History atorvastatin 40 mg tablet 40 mg PO DAILY 12/08/24 12/08/24 History bisacodyl 10 mg rectal suppository 10 mg MA QDAY PRN constipation 12/08/24 12/08/24 History (Dulcolax (bisacodyl)) calcium carbonate 500 mg PO QID 12/08/24 12/08/24 History calcium carbonate (Antacid 200 mg PO QDAY 12/08/24 12/08/24 History (calcium carbonate)) calcium carbonate (Calcium 500) 500 mg PO QDAY 12/08/24 12/08/24 History dexamethasone 4 mg tablet 4 mg PO BID 12/08/24 12/08/24 History diphenhydramine 25 1 tab PO HS PRN sleep 12/08/24 12/08/24 History mg-acetaminophen 500 mg tablet (Tylenol PM Extra Strength) emtricitabine 200 mg-tenofovir 1 tab PO Q24H 12/08/24 12/08/24 History disoproxil fumarate 300 mg tablet (Truvada) hydralazine 10 mg tablet 10 mg PO .every 6 12/08/24 12/08/24 History ipratropium 0.5 mg-albuterol 3 mg 3 ml inhalation Q4H PRN shortness 12/08/24 12/08/24 History (2.5 mg base)/3 mL nebulization of breath soln lidocaine 5 % topical patch See Rx Instructions topical 12/08/24 12/08/24 History .COMPLEX magnesium aspart,citrate,oxide 400 mg PO DAILY 12/08/24 12/08/24 History magnesium hydroxide 400 mg/5 mL 30 ml PO PRN PRN constipation 12/08/24 12/08/24 History oral suspension (Milk of Magnesia) melatonin 3 mg tablet 3 mg PO HS 12/08/24 12/08/24 History ondansetron 4 mg disintegrating 4 mg PO QDAY 12/08/24 12/08/24 History tablet sennosides 8.6 mg tablet (senna) 8.6 mg PO BID 12/08/24 12/08/24 History sodium phosphates 19 gram-7 118 ml MA QDAY PRN constipation 12/08/24 12/08/24 History gram/197 mL enema (Fleet Enema Extra) Allergies Allergy/AdvReac Type Severity Reaction Status Date / Time No Known Allergies Allergy Verified 10/01/24 03:40 Exam Vital Signs Temp Pulse Resp BP Pulse Ox O2 Del Method O2 Flow Rate 97.0 F 86 18 130/86 H 95 Room Air 2 12/08/24 04:00 12/08/24 04:00 12/08/24 04:00 12/08/24 04:00 12/08/24 04:00 12/08/24 04:00 12/07/24 21:05 Constitutional Constitutional: no acute distress Routine Respiratory Exam Respiratory: Present no resp distress Routine Rectal Exam Comments: right gluteal erythema, induration at the superior aspect, no drainage, nontender Routine Neurological Exam Neurological: Present alert and oriented X3 Results Results: Laboratory Laboratory results: results reviewed Results: Imaging CT scan - abdomen: report reviewed and image reviewed Assessment & Plan Plan 69M with HTN, HLD, CAD s/p stenting, CVA 09/2024 who presented with pain at the gluteus, with findings of cellulitis and induration. CT is reviewed and while there is no drainable fluid collection, I recommend incision and drainage for decompression as well as possible excisional debridement in case any necrotic tissue is encountered. I offered bedside vs operating room but given the sensitive nature of this area I do think operating room is preferable and I explained that the wound will need daily packing changes for a matter of days to weeks. Pt expressed understanding
--- NOTE | 2024-12-08 10:22 | PC.NURSE ---
Patient's sister came to nurse's station informed RN that she fed the patient fatou crackers, and jello.NPO door sign and care board both displayed NPO and patient had been educated not to eat, education reenforced to not eat or drink anything until instructed to. RN informed surgeon and surgical team.
[2024-12-08] MEDS: VANCOMYCIN/WATER 1250 MG IVPB 250 ML 120 MG IV ×2 (10:38→22:03)
--- NOTE | 2024-12-08 16:28 | ESPR_ITS ---
<Statement entered by Omega Baer MD - 12/10/24 13:59> I have discussed and was present for the essential components of the history, physical examination, diagnosis, and treatment plan with the resident. I agree with the patient's care as documented by the resident and amended herein by me. Omega Baer MD FACP. <Statement entered by Mckay Espinosa MD - 12/08/24 20:02> Patient is admitted for right buttock cellulitis and will be continued on IV antibiotic therapy with vancomycin and Zosyn. Will follow-up with culture results and anticipating discharge once cultures are negative. Continuing with wound care and frequent repositioning. Surgery plan to do I&D tomorrow for excisional debridement. I discussed and supervised with the senior insight manager international physician who took care of this patient. I personally saw and examined the patient. I agree with assessment and plan. Disclaimer: Despite multiple revisions, due to the dictation software being used, the document bellow may not be free of grammatical errors including phonetic/typographic errors. However, this does not deter from our commitment to providing health care in the patient's best interest in mind. Plan of care discussed with attending physician Dr. Keyur Espinosa MD, PGY 3 Documentation for date of: 12/08/24 Subjective Subjective Interval history: No acute events overnight. Patient was seen and examined. Patient stated he was doing fine and did not have any complaints or concerns this morning. Patient's sister was bedside with him (Mabel?). Patient denied having any fevers, headache, chest pain, shortness of breath, nausea, vomiting, abdominal pain, dysuria. Exam Vital Signs Temp Pulse Resp BP Pulse Ox O2 Del Method O2 Flow Rate 98.1 F 110 H 17 131/98 H 94 L Room Air 2 12/08/24 12:12/08/24 12:12/08/24 12:12/08/24 12:12/08/24 12:12/08/24 12:12/07/24 21:05 Narrative Exam General: A/O x3, no acute distress Lungs: Clear SHIVA to auscultation and percussion, No accessory muscle use. Cardio: Normal S1/S2, regular rhythm, no murmurs, no JVD Abdomen: Soft, non-tender, no palpable masses, peristalsis present, no guarding or rebound. Extremities: Symmetrical, no significant deformities, no peripheral edema , non-tender, peripheral pulses presents. Skin: No rashes, no lesions, warm to touch, 10x12 cm indurated mass nonfluctuating at the R side of the intergluteal cleft. Neuro: L sided weakness compared to the R side, No facial asymmetry, No sensory deficits, able to follow commands and move all extremities Psych: Slow response Objective Labs 12/08/24 05:25 12/08/24 05:25 Labs: Laboratory Results - last 24 hr 12/07/24 12/07/24 12/07/24 16:24 16:44 22:25 WBC 20.6 H RBC 4.63 Hgb 14.3 Hct 39.3 L MCV 85 MCH 30.9 MCHC 36.4 RDW Std Deviation 45.1 H Plt Count 119 L Neut % (Auto) 81 H Lymph % (Auto) 10 [place] % (Auto) 4 Eos % (Auto) 0 Baso % (Auto) 0 Neut # (Auto) 16.7 H Lymph # (Auto) 2.0 [place] # (Auto) 0.8 Eos # (Auto) 0.0 Baso # (Auto) 0.1 Immature Gran # (Auto) 1.04 H Absolute Nucleated RBC 0.00 Immature Gran % 5 H Nucleated RBC % 0 Sodium 130 L Potassium 4.2 Chloride 99 Carbon Dioxide 24.1 Anion Gap 7 BUN 12 Creatinine 0.6 Estim Creat Clear Calc 120.0 eGFR > 60 BUN/Creatinine Ratio [address] Glu mg/dL Hemoglobin A1c Calculated Osmolality 262 L Lactic Acid 2.3 H 1.3 Calcium 8.3 Corrected Calcium 8.9 Magnesium Total Bilirubin 0.6 AST 22 ALT 48 Alkaline Phosphatase 99 C-Reactive Prot, Quant 3.5 H Total Protein 5.6 L Albumin 3.2 L Globulin 2.4 Albumin/Globulin Ratio 1.3 Triglycerides Cholesterol LDL Cholesterol, Calc HDL Cholesterol Cholesterol/HDL Ratio Procalcitonin 0.07 12/08/24 05:25 WBC 17.3 H RBC 4.64 Hgb 14.3 Hct 40.2 L MCV 87 MCH 30.8 MCHC 35.6 RDW Std Deviation 47.2 H Plt Count 121 L Neut % (Auto) 76 Lymph % (Auto) 14 [place] % (Auto) 4 Eos % (Auto) 0 Baso % (Auto) 0 Neut # (Auto) 13.2 H Lymph # (Auto) 2.5 [place] # (Auto) 0.8 Eos # (Auto) 0.1 Baso # (Auto) 0.1 Immature Gran # (Auto) 0.79 H Absolute Nucleated RBC 0.00 Immature Gran % 5 H Nucleated RBC % 0 Sodium 134 L Potassium 3.9 Chloride 102 Carbon Dioxide 25.1 Anion Gap 7 BUN 10 Creatinine 0.6 Estim Creat Clear Calc 120.0 eGFR > 60 BUN/Creatinine Ratio [address] Glu mg/dL 105 Hemoglobin A1c 5.3 Calculated Osmolality 266 L Lactic Acid Calcium 8.3 Corrected Calcium 8.9 Magnesium 2.0 Total Bilirubin 0.7 AST 17 ALT 41 Alkaline Phosphatase 81 C-Reactive Prot, Quant Total Protein 5.5 L Albumin 3.2 L Globulin 2.3 Albumin/Globulin Ratio 1.4 Triglycerides 122 Cholesterol 103 L LDL Cholesterol, Calc 27 HDL Cholesterol 52 Cholesterol/HDL Ratio 2.0 L Procalcitonin Quality Measures Quality Measures sepsis (White count 20.6, lactic 2.3, CRP 3.5, procalcitonin 0.07.) Current suspected stage: ruled out Possible source: skin/soft tissue Blood cultures ordered: yes Antibiotic ordered: Yes Advance care planning discussed with:: patient Assessment & Plan Assessment Current Active Medications: Generic Name Dose Route Start Last Admin Trade Name Freq PRN Reason Stop Dose Admin Acetaminophen 650 mg 12/08/24 00:24 Acetaminophen 325 Mg Tablet PO 01/07/25 00:23 Q6H PRN Fever >100.4 Acetaminophen 650 mg 12/08/24 00:24 Acetaminophen 325 Mg Tablet PO 01/07/25 00:23 Q6H PRN PAIN SCALE 1-3 (mild Hydrocodone Bitart/Acetaminophen 1 tab 12/08/24 00:24 Hydrocodone/Apap 5/325 Tablet PO 12/13/24 00:23 Q4HR PRN PAIN SCALE 4-6 (Moderate Piperacillin/Tazobactam/Dextrose 3.375 gm in 50 mls @ 100 mls/hr 12/08/24 00:32 12/08/24 13:22 Zosyn IV 12/15/24 00:31 100 mls/hr Q8HR IZABEL Administration Vancomycin HCl 250 mls @ 120 mls/hr 12/08/24 10:00 07/01/25 10:38 Vancomycin/Water 1250 Mg Ivpb IV 12/15/24 09:59 120 mls/hr Q12H IZABEL Administration Protocol Ondansetron HCl 4 mg 12/08/24 00:24 Ondansetron Inj 2 Mg/Ml Inj 2 Ml IVP 01/07/25 00:23 Q6H PRN NAUSEA OR VOMITING Protocol Pharmacy Consult 1 each 12/08/24 09:00 Vancomycin Pharmacy To Dose 1 Each Each IV 01/07/25 08:59 QDAY PRN RX Plan Plan 69-year-old male with past medical history of hypertension, hyperlipidemia, CAD s/p 2 stents, and recent intracranial hemorrhage on 10/01/2024, admitted for management of right buttock cellulitis. #Right buttock cellulitis #Leukocytosis #Lactic acidosis, resolved Patient came in with initial complaints of pain in the right buttocks Abdomen/pelvis CT showed perianal inflammation which extends to the inter gluteal fold with cellulitis primarily the right buttock region, no fluid-filled drainable abscess. In the ED patient received vancomycin and Zosyn x 1 Negative acid was 2.3 and downtrended to 1.3 WBCs downtrended to 17.3 from 20.6. Patient did not have any fevers, tachycardia, or any signs of systemic inflammatory response other than WBC elevation. Surgery was consulted and recommended IV Abx Plan: Continue Vanco and Zosyn Follow Up Blood cultures Wound care IV fluids Frequent patient repositioning Surgery consulted, plans for incision and drainage for decompression as well as possible excisional debridement in case any necrotic tissue is encountered. Chronic disease: #Hx of hypertension #Hx of CAD s/p stents #Hx of ICH Blood pressure has been stable since came into the ED. Patient's home medication includes atenolol 25 mg q daily and atorvastatin 40 mg q daily. Blood pressure has been well controlled, will add anti-hypertensives as necessary. Disposition: Patient admitted to med surg for R buttock cellulitis. Diet: Cardiac GI prophylaxis: not indicated DVT prophylaxis: SCDs due to recent ICH Code: Full Johnny Bautista MD PGY-1
[2024-12-08] MEDS: ACETAMINOPHEN 325 MG TABLET 650 MG PO (18:19)
[2024-12-09] VITALS (12 sets, daily range): BP systolic 79–120; BP diastolic 52–79; PULSE 80–173; RESP 14–32; TEMP 36.2–37; O2SAT 85–96
--- NOTE | 2024-12-09 | XR_ITS ---
Examination: MRI of brain without intravenous contrast. MRI brain with intravenous contrast. Date and time of exam:December 09, 2024, 1947 hours INDICATIONS: History acute subdural hematoma anterior to the right cerebral falx 24 mm right frontal hematoma hemorrhage ruptured into the ventricular system and CT brain scan October 01, 2024 Technique: Multiple axial and sagittal images of the brain to been obtained. Siemens high-resolution 1.52 Porsha short bore scanner utilized. Sagittal sections, T1 weighted images, TR 500, TE 14, are performed. Axial sections proton-density and T2-weighted images have been obtained. Inversion recovery axial images, TR 9260, TE 111, TR 2500. Diffusion weighted images, axial sections, TR 4800, TE 128, B value 1000. Axial sections, ADC map, TR 4800, TE 128. Axial and coronal images were also obtained post 17 cc gadolinium administered intravenously. Findings:: Enlargement of the sella turcica is not present. The optic chiasm and infundibular stalk are not remarkable. There is no localized enlargement of the medulla or jameson. Fourth ventricle and cerebellar tonsils appear normal in position. Subacute hemorrhage in the right frontal lobe T1-weighted sagittal image 10 Fourth ventricle is midline. Mass in the cerebellopontine angle region is not evident. 7th and 8th nerve complexes exhibit symmetry Globes are symmetrical Orbital musculature including medial lateral rectus muscles do not exhibit abnormality Increased white matter signal is prominent including in the right frontal lobe Effacement of the cortical sulcal markings is not identified. Mass effect upon the ventricular system is not identified. Diffusion-weighted images demonstrate large focus of restricted diffusion in the right frontal lobe and anterior corpus callosum with signal deficit on the ADC map Contrast images demonstrate enhancement in the right frontal lobe, 7 x 3 cm Impression: Large area of restricted diffusion with signal deficit consistent with infarct in the right frontal lobe with subacute hemorrhage Postcontrast images demonstrate enhancement of this mass, differential would include luxury enhancement in a right frontal infarct versus enhancement in a right frontal tumor Recommend neurology consultation and correlation with clinical findings and follow-up brain MRI studies as clinically warranted
[2024-12-09] MEDS: PIPER/TAZO 3.375 GM PREMIX 3.375 GM/50 ML BAG IV ×4 (01:05→22:25)
--- NOTE | 2024-12-09 04:13 | PC.NURSE ---
[facility] 02:00am to 03:00am.
--- NOTE | 2024-12-09 05:47 | PC.NURSE ---
alert and oriented, pre-op checklist done with pt.
[2024-12-09 06:14] LABS: Basophils # (Auto) 0.1 Thou/mm3 (0.0-0.2); Basophils % (Auto) 1 % (0-2.5); Eosinophils # (Auto) 0.1 Thou/mm3 (0.0-0.5); Eosinophils % (Auto) 0 % (0-10); Hematocrit 39.9 % (41.0-53.0); Hemoglobin 14.6 g/dL (13.5-16.0); Immature Granulocytes Auto 0.72 Thou/mm3 (0.00-0.00); Lymphocytes # (Auto) 2.8 Thou/mm3 (1.0-4.8); Lymphocytes % (Auto) 17 % (10-50); Mean Corpuscular HGB Conc 36.6 g/dl (31.0-37.0); Mean Corpuscular Hemoglobin 31.3 pg (25.0-35.0); Mean Corpuscular Volume 85 fL (80-100); Monocytes # (Auto) 0.5 Thou/mm3 (0.0-0.8); Monocytes % (Auto) 3 % (0-12); Neutrophils # (Auto) 12.5 Thou/mm3 (1.8-7.7); Neutrophils % (Auto) 75 % (37-80); Nucleated Red Blood Cell # 0.00 Thou/mm3 (0.00-0.00); Nucleated Red Blood Cell % 0 /100 WBC (0); Platelet Count 127 Thou/mm3 (140-440); RDW Standard Deviation 46.2 fL (35.1-43.9); Red Blood Count 4.67 Miln/mm3 (4.50-5.90); White Blood Count 16.7 Thou/mm3 (3.8-10.6)
[2024-12-09 07:20] LABS: Alanine Aminotransferase 44 U/L (10-49); Albumin, Serum 3.2 gm/dL (3.4-4.8); Albumin/Globulin Ratio 1.3 (1.2-2.2); Alkaline Phosphatase 85 U/L (46-116); Anion Gap 9 (7-16); Aspartate Amino Transferase 22 U/L (0-34); BUN/Creatinine Ratio 22 Ratio (12-20); Bilirubin,Total 1.4 mg/dL (0.3-1.2); Blood Urea Nitrogen 13 mg/dL (9-23); Calcium 8.2 mg/dL (8.3-10.6); Calcium (Corrected) 8.8 mg/dL (8.5-10.1); Carbon Dioxide 22.4 mMol/L (20.0-31.0); Chloride 98 mMol/L (98-107); Creatinine (Component) 0.6 mg/dL (0.6-1.3); Estimated Creatinine Clearance 120.0 mL/min (>60); Globulin 2.5 gm/dL (2.3-3.5); Glucose 81 mg/dL (74-106); Magnesium 1.7 mg/dL (1.6-2.6); Osmolality,Calculated 258 (275-295); Potassium 3.6 mMol/L (3.4-5.1); Sodium 129 mMol/L (136-145); Total Protein 5.7 gm/dL (5.7-8.2); eGFR > 60 See Note
--- NOTE | 2024-12-09 07:37 | EKG_ITS ---
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
--- NOTE | 2024-12-09 07:40 | CHAP ---
Rapid Response call. They took patient for tests and I stayed in room with patient's sister and gave comfort and prayer. The doctor came in and let her know exactly what they were doing. After he left, I let the sister know that I was available to come up if she or the patient's needed me.
--- NOTE | 2024-12-09 07:41 | XR_ITS ---
Examination: CT brain head without contrast. 2-D sagittal coronal reconstructions Date and time of exam:December 09, 2024 at 0947 hours Comparison November 20, 2024 CTDI: vol (mGy):51.6 DLP: (mGycm):1127 Technique: Multiple CT axial sections of the brain have been obtained, 5 mm slice thickness. Contrast has not been administered. 2-D sagittal, coronal reconstructions have been obtained Low dose protocols were performed. One or more of the following dose reduction techniques were used; automated exposure control, adjustment of the mA and/or KV according to patient size, use of iterative reconstruction technique. Findings: Posterior craniotomy defects Large area of encephalomalacia in the right frontal lobe again noted with mass effect upon the right lateral ventricle Unchanged subtle low density in the right occipital lobe Mild ventricular enlargement No midline shift of the ventricles No interval acute hemorrhage IMPRESSION: Large area of encephalomalacia in the right frontal lobe again noted with mass effect unchanged upon the right lateral ventricle No interval acute hemorrhage Recommend brain MRI MRA without contrast, stroke protocol, follow-up
[2024-12-09 07:52] LABS: Lactate (Lactic Acid) 1.1 mMol/L (0.4-2.0)
[2024-12-09 07:54] LABS: Basophils # (Auto) 0.1 Thou/mm3 (0.0-0.2); Basophils % (Auto) 0 % (0-2.5); Eosinophils # (Auto) 0.0 Thou/mm3 (0.0-0.5); Eosinophils % (Auto) 0 % (0-10); Hematocrit 38.9 % (41.0-53.0); Hemoglobin 14.2 g/dL (13.5-16.0); Immature Granulocytes Auto 0.83 Thou/mm3 (0.00-0.00); Lymphocytes # (Auto) 2.8 Thou/mm3 (1.0-4.8); Lymphocytes % (Auto) 15 % (10-50); Mean Corpuscular HGB Conc 36.5 g/dl (31.0-37.0); Mean Corpuscular Hemoglobin 31.3 pg (25.0-35.0); Mean Corpuscular Volume 86 fL (80-100); Monocytes # (Auto) 0.5 Thou/mm3 (0.0-0.8); Monocytes % (Auto) 3 % (0-12); Neutrophils # (Auto) 14.1 Thou/mm3 (1.8-7.7); Neutrophils % (Auto) 77 % (37-80); Nucleated Red Blood Cell # 0.00 Thou/mm3 (0.00-0.00); Nucleated Red Blood Cell % 0 /100 WBC (0); Platelet Count 129 Thou/mm3 (140-440); RDW Standard Deviation 46.2 fL (35.1-43.9); Red Blood Count 4.53 Miln/mm3 (4.50-5.90); White Blood Count 18.4 Thou/mm3 (3.8-10.6)
--- NOTE | 2024-12-09 07:59 | XR_ITS ---
Examination: AP chest single view TECHNIQUE: AP portable semiupright chest single view Date and time: December 09, 2024 0808 hours Comparison October 01, 2024 INDICATIONS: Chest pain atrial fibrillation onset today. FINDINGS: No significant cardiac enlargement. Moderate vascular congestion. Diffuse bilateral pneumonia, more severe in the right lung Prominent osteopenia IMPRESSION: Diffuse bilateral pneumonia
--- NOTE | 2024-12-09 08:03 | PC.SS ---
Patient Roc Akhtar is a 69 Year old male admitted for Right Buttock Abscess. SS met with patient and patient's , [place] at bedside to discuss discharge plan and verify demographic information. Patient's reports patient resides at [facility]. She reports she is surrogate decision maker, [phone]. Patient needs assistance completing all ADL's and does utilize a wheel Chair to assist with ambulation. Patient has been at [facility] around 7
--- NOTE | 2024-12-09 08:08 | PC.SS ---
Patient Roc Akhtar is a 69 Year old male admitted for Right Buttock Abscess. SS met with patient and patient's , [place] at bedside to discuss discharge plan and verify demographic information. Patient's reports patient resides at [facility]. She reports she is surrogate decision maker, [phone]. Patient needs assistance completing all ADL's and does utilize a wheel Chair to assist with ambulation. Patient has been at [facility] around six weeks. At time of discharge patient will return back to [facility]. SS will provide transportation. Next of kin: [place] Akhtar [phone] Discharge plan: Home
--- NOTE | 2024-12-09 08:15 | ESCONSULT_ITS ---
Tele Neuro Consultation Consultation Date 12/09/24 Most Recent Vital Signs Last Vital Signs Temp 98.4 F 12/09/24 04:00 Pulse 92 12/09/24 04:00 Resp 20 12/09/24 04:00 BP 105/79 12/09/24 04:00 Pulse Ox 91 L 12/09/24 04:00 O2 Del Method Room Air 12/09/24 04:00 O2 Flow Rate 2 12/07/24 21:05 Consultation Narrative [facility] Tele[facility]urology Consult Services Patient Name: Roc Akhtar Date of : 1955 Identification Number: Date of Service: 12/09/2024 07:40:26 Diagnosis: ? G93.49 - Encephalopathy Multifactorial Impression: ? 69 yo with a h/o HTN, hLD, CAD, ICH 10/02 a/w buttock cellulitis was noted to have confusion this morning, last normal sometime last night .Exam notable for mild confusion, lethargy, inattention. He is hypotensive and tachycardic, concerning for ongoing infectious process. Not thrombolytic candidate due to prior ICH and exam most c/w encephalopathy. Would not be BEST candidate due to baseline functional status however exam most c/w encephalopathy due to medical issues + baseline weakness. Recommend ongoing medical workup and treatment, routine MRI brain w/o for clarification etiology confusion. Our recommendations are outlined below. Recommendations: ? Neuro Checks (Q4) ? Bedside Swallow Eval ? DVT Prophylaxis ? Euglycemia and Avoid Hyperthermia (PRN Acetaminophen) Sign Out: ? Discussed with Primary Attending Advanced Imaging: Advanced Imaging Deferred because: Poor functional status at baseline, a greater risk than benefit with acute intervention Metrics: Last Known Well: Unknown Dispatch Time: 12/09/2024 07:40:25 Initial Response Time: 12/09/2024 07:43:52 Symptoms: confusion. Initial patient interaction: 12/09/2024 07:54:03 NIHSS Assessment Completed: 12/09/2024 08:00:02 Patient is not a candidate for Thrombolytic. Thrombolytic Medical Decision: 12/09/2024 08:00:08 Patient was not deemed candidate for Thrombolytic because of following reasons: LKW outside 4.5 hr window. . History of previous intracranial hemorrhage, intracranial neoplasm . CT Head: CT head unremarkable for acute infarction or hemorrhage per Radiology: personally reviewed, right frontal encephalomalacia Primary Provider Notified of Diagnostic Impression and Management Plan on: 12/09/2024 08:13:44 Spoke With: attending at bedside Able to Reach 12/09/2024 08:13:44 History of Present Illness: Patient is a 69 year old Male. Inpatient stroke alert was called for symptoms of confusion. 69 yo with a h/o HTN, hLD, CAD, ICH 10/02 a/w buttock cellulitis was noted to have confusion this morning, last normal sometime last night (unclear, staff at bedside do not have clear LKW). He has chronic left sided weakness from prior ICH. He also was having oxygen desat this morning. CXR and CBC pending from this morning. Past Medical History: ? Hypertension ? Hyperlipidemia ? Coronary Artery Disease Medications: No Anticoagulant use No Antiplatelet use Reviewed EMR for current medications Allergies: Reviewed Social History: Drug Use: No Family History: There is no family history of premature cerebrovascular disease pertinent to this consultation ROS : 14 Points Review of Systems was performed and was negative except mentioned in HPI. Past Surgical History: There Is No Surgical History Contributory To Today?s Visit Examination: BP(107/76), Pulse(160), Blood Glucose(94) 1A: Level of Consciousness - Arouses to minor stimulation + 1 1B: Ask Month and Age - 1 Question Right + 1 1C: Blink Eyes & Squeeze Hands - Performs Both Tasks + 0 2: Test Horizontal Extraocular Movements - Normal + 0 3: Test Visual Kramer - Partial Hemianopia + 1 4: Test Facial Palsy (Use Grimace if Obtunded) - Minor paralysis (flat nasolabial fold, smile asymmetry) + 1 5A: Test Left Arm Motor Drift - No Movement + 4 5B: Test Right Arm Motor Drift - No Drift for 10 Seconds + 0 6A: Test Left Leg Motor Drift - No Movement + 4 6B: Test Right Leg Motor Drift - No Drift for 5 Seconds + 0 7: Test Limb Ataxia (FNF/Heel-Silva) - No Ataxia + 0 8: Test Sensation - Mild-Moderate Loss: Less Sharp/More Dull + 1 9: Test Language/Aphasia - Normal; No aphasia + 0 10: Test Dysarthria - Normal + 0 11: Test Extinction/Inattention - No abnormality + 0 NIHSS Score: 13 NIHSS Free Text : inattentive Pre-Morbid Modified Arcadia Scale: 5 Points = Severe disability; bedridden, incontinent and requiring constant nursing care and attention Spoke with : attending at bedside This consult was conducted in real time using interactive audio and video technology. Patient was informed of the technology being used for this visit and agreed to proceed. Patient located in hospital and provider located at home/office setting. Patient is being evaluated for possible acute neurologic impairment and high probability of imminent or life-threatening deterioration. I spent total of 39 minutes providing care to this patient, including time for face to face visit via telemedicine, review of medical records, imaging studies and discussion of findings with providers, the patient and/or family. Dr Bita Cam [facility] For Inpatient follow-up with [facility] physician please call [facility] at . As we are not an outpatient service for any post hospital discharge needs please contact the hospital for assistance. If you have any questions for the [facility] physicians or need to reconsult for clinical or diagnostic changes please contact us via [facility] at .
[2024-12-09 08:27] LABS: Alanine Aminotransferase 42 U/L (10-49); Albumin, Serum 3.1 gm/dL (3.4-4.8); Albumin/Globulin Ratio 1.3 (1.2-2.2); Alkaline Phosphatase 78 U/L (46-116); Anion Gap 8 (7-16); Aspartate Amino Transferase 21 U/L (0-34); BUN/Creatinine Ratio 23 Ratio (12-20); Bilirubin,Total 1.6 mg/dL (0.3-1.2); Blood Urea Nitrogen 14 mg/dL (9-23); Calcium 8.2 mg/dL (8.3-10.6); Calcium (Corrected) 8.9 mg/dL (8.5-10.1); Carbon Dioxide 19.1 mMol/L (20.0-31.0); Chloride 101 mMol/L (98-107); Creatinine (Component) 0.6 mg/dL (0.6-1.3); Estimated Creatinine Clearance 120.0 mL/min (>60); Globulin 2.4 gm/dL (2.3-3.5); Glucose 92 mg/dL (74-106); Osmolality,Calculated 257 (275-295); Potassium 3.6 mMol/L (3.4-5.1); Procalcitonin 0.17 ng/ml (0.0-0.49); Sodium 128 mMol/L (136-145); Total Protein 5.5 gm/dL (5.7-8.2); eGFR > 60 See Note
[2024-12-09 08:30] LABS: B-Type Natriuretic Peptide 43 pg/mL (0-100)
[2024-12-09] MEDS: SODIUM CHLORIDE 0.9% 500 ML 500 ML 999 ML IV ×2 (08:30→09:24)
[2024-12-09 08:33] LABS: Troponin I 0.051 ng/mL (0.0-0.045)
[2024-12-09] MEDS: DILTIAZEM INJ 5 MG/ML VIAL 5 ML 10 MG IV (08:40)
[2024-12-09] MEDS: Magnesium Sulfate 4 GM Ivpb 4 GM/50 ML BAG IV (08:41)
[2024-12-09] MEDS: HYDROCORTISONE SOD SUCC INJ 100 MG VIAL IV ×4 (09:02→23:04)
[2024-12-09] MEDS: EMTRICITABINE 200 MG/TENOFOVIR 300 MG TAB (NON-FORM) 1 TAB PO (09:33)
[2024-12-09 09:35] LABS: Vancomycin,Trough 11.0 mcg/mL (5.0-10.0)
[2024-12-09 10:04] LABS: INR 1.1 (0.9-1.3); Partial Thromboplastin Time 30.8 Seconds (22.0-36.0); Prothrombin Time 11.9 Seconds (9.0-12.2)
[2024-12-09] MEDS: VANCOMYCIN/WATER 1250 MG IVPB 250 ML 120 MG IV ×2 (11:20→23:04)
[2024-12-09 11:44] LABS: Allen Test Performed/OK; Base Excess -3 (-3-3); HCO3 20 mEq/L (20-26); Inspired O2, VO2 Liters 6 L/min; Inspired Oxygen, FIO2 21 %; O2 Saturation 99 % (91-98); PCO2 29 mmHg (32.0-48.0); PO2 108 mmHg (83-108); Puncture Site Left Radial; pH, Arterial 7.44 (7.35-7.45)
--- NOTE | 2024-12-09 12:07 | PC.SS ---
SS follow up note; Patient is on IV ABX. Repeat cultures pending. IND today. Patient will discharge back to [facility] when medically cleared.
[2024-12-09] MEDS: RINGERS LACTATED 1000 ML 1,000 ML 999 ML IV (12:33)
[2024-12-09] MEDS: DIGOXIN 0.125 MG TABLET 0.25 MG PO (13:11)
[2024-12-09 13:31] LABS: C-Reactive Protein 19.9 mg/dL (0.0-0.9)
[2024-12-09 13:45] LABS: Sed Rate (ESR) 25 mm/hr (0-20)
--- NOTE | 2024-12-09 15:07 | EKG_ITS ---
[facility] Test Date: 2024-12-09 Pat Name: ALEJANDRO VAZQUEZ Department: Room: S278A Gender: Male Body Designer: JOHANNY : 1955 Requested By: Michael Wang Order Number: [id number] Reading MD: Michael Wang Measurements Intervals [place] Rate: 103 P: 189 AL: 129 QRS: 220 QRSD: 105 T: 151 QT: 351 QTc: 460 Interpretive Statements SINUS TACHYCARDIA ARM LEADS REVERSED ABNORMAL RHYTHM ECG Compared to ECG 12/09/2024 08:15:57 Atrial fibrillation no longer present Myocardial infarct finding no longer present /store/S0/[id number].pdf
[2024-12-09 15:41] LABS: HIV (1&2) Antibody Rapid Non-Reactive
--- NOTE | 2024-12-09 16:14 | ESCONSULT_ITS ---
<Statement entered by Suad Hunt MD - 12/12/24 18:21> I personally examined the patient evaluated the patient with resident physician Dr. Michael Wang and the patient is known to me as history of CAD previous stent placed in RCA total occlusion multiple medical problems came to the hospital with decubitus ulcer recent hemorrhagic stroke contraindication for anticoagulation also has chronic swelling of both lower EXTR with left more than right still has residual left-sided weakness. Evaluated the patient with resident physician apparently has had a history of cardiac arrhythmia paroxysmal A-fib but appears to be maintaining sinus rhythm we will treat that as a one- time episode of A-fib anticoagulation is contraindicated for now. Evaluate the patient with resident physician and agree with the treatment plan recommendation as documented by PGY 2 HPI Data of Consult Requesting Physician: Omega Baer MD Admitting Provider: Familia Kam MD Attending Provider: Omega Baer MD Primary Care Provider: Physician No Primary/Family Consult Narrative Reason for consult: Tachyarrhythmia History of present illness: Patient is a poor historian, mildly irritated and sister is at the bedside who gives most of the history A 69-year-old male with significant past medical history of hypertension, hyperlipidemia, CAD status post 2 stents in 2003, recent ICH in 09/2024 currently residing in nursing facility was brought to the hospital with chief complaints of worsening of his ulcer and swelling on his buttocks since 1 week. Denies fever, nausea, vomiting, diarrhea, bloody stools, or any other complaints. Patient was supposed to get incision and drainage for decompression as well as possible excisional debridement of abscess and cellulitis at the gluteal region. Patient was kept on n.p.o. since last night. Around 6 AM per sister, patient is at his normal baseline, 30 minutes later she noticed that he was a bit zoned out and not being his normal self. Later patient was found to have tachycardia with heart rate around 150 with low blood pressures for which patient was given 2.5 L bolus of fluids, IV push of diltiazem and a dose of digoxin 0.25 Mg. Later ICU was consulted in view of blood pressure on lower side and they recommended to give 1 more liter of bolus which was given and patient blood pressure improved. Patient was upgraded to telemetry for further management. Telemetry neuro is consulted and CT head was done which did not show any significant abnormality. Patient became his normal self around 12 PM, per his sister. Patient did not remember any of the events from this morning Cardiology is consulted in view of tachyarrhythmia. Patient endorsed that he follows with Dr. Hunt in view of CAD s/p stenting done in 2003. Recent visit is in November 2024 which is a regular follow-up visit and endorsed that there is no complaints Past medical history: Hypertension, hyperlipidemia, CAD Past surgical history: PCI in 2003 Social history: Denies smoking, alcohol, other illicit drug abuse cc:: cc: Omega Baer MD Review of Systems Review of Systems Systems Reviewed: All systems reviewed, normal except as documented Past Medical History Past Medical History CARDIAC: Positive Cardiac Disorders, Myocardial Infarction and Hypertension; Negative Congestive Heart Failure RESPIRATORY: Negative Chronic Obstructive Pulmonary Disease (COPD) GENITOURINARY: Negative Renal Disease ENDOCRINE: Negative Diabetes Mellitus Type 1 or Diabetes Mellitus Type 2 OTHER HISTORY: Negative Autoimmune Disease Family History FAMILY HISTORY: Negative Family Psychiatric Problems, Family Respiratory Disorders, Family Cardiac Disorders, Family Gastrointestinal Problems, Family Cancer, Family Surgery or Family Anesthesia Reaction Social History SMOKING STATUS: Never smoker Exam Vital Signs Temp Pulse Resp BP Pulse Ox O2 Del Method O2 Flow Rate 97.6 F 120 H 18 120/73 96 Oxy Mask 5 12/09/24 12:00 12/09/24 13:11 12/09/24 12:00 12/09/24 13:11 12/09/24 12:00 12/09/24 12:00 12/09/24 12:00 Narrative Exam General: Awake. HEENT: Normocephalic, atraumatic, mucous membranes moist. Heart: Regular rhythm, no murmurs. Sinus tachycardia Lungs: Clear to auscultation with no wheezing or crackles. Abdomen: Soft, nondistended, nontender, positive bowel sounds. ?No guarding or rebound tenderness. Neurologic: Alert and oriented x3, weakness noted in the left half of the body from residual stroke Extremities: Noted edema on Left lower extremity Skin: noted gluteal cellulitis on the picture from chart review Results Labs 12/10/24 05:27 12/09/24 07:38 Labs: Short CBC 12/09/24 12/09/24 Range/Units 05:21 07:38 WBC 16.7 H 18.4 H (3.8-10.6) Thou/mm3 Hgb 14.6 14.2 (13.5-16.0) g/dL Hct 39.9 L 38.9 L (41.0-53.0) % Plt Count 127 L 129 L (140-440) Thou/mm3 BMP 12/09/24 12/09/24 05:21 07:38 Sodium 129 L 128 L Potassium 3.6 3.6 Chloride 98 101 Carbon Dioxide 22.4 19.1 L BUN 13 14 Creatinine 0.6 0.6 Glucose 81 92 Calcium 8.2 L 8.2 L Cardiac Enzymes 12/09/24 Range/Units 07:38 Troponin I 0.051 H* (0.0-0.045) ng/mL Liver Function 12/09/24 12/09/24 Range/Units 05:21 07:38 Total Bilirubin 1.4 H D 1.6 H (0.3-1.2) mg/dL AST 22 21 (0-34) U/L ALT 44 42 (10-49) U/L Alkaline Phosphatase 85 78 (46-116) U/L Albumin 3.2 L 3.1 L (3.4-4.8) gm/dL ABG Interpretation ABG results: 12/09/24 11:24 ABG pH 7.44 ABG pCO2 29 L ABG pO2 108 ABG HCO3 20 ABG O2 Saturation 99 H ABG Base Excess -3 Quality Measures Quality Measures sepsis (White count 20.6, lactic 2.3, CRP 3.5, procalcitonin 0.07.) Current suspected stage: ruled out Possible source: skin/soft tissue Blood cultures ordered: yes Antibiotic ordered: Yes Advance care planning discussed with:: patient Medications Home Medications and Allergies Home Medications ?Medication ?Instructions ?Recorded ?Confirmed ?Type acetaminophen 325 mg tablet 650 mg PO Q6H PRN pain 07/0412/08/24 History (Aminofen) acetaminophen 500 mg tablet 500 mg PO Q8HR PRN pain 12/08/24 History (Acetaminophen Extra Strength) atenolol 25 mg tablet 25 mg PO Q24H 12/08/2412/08 History atorvastatin 40 mg tablet 40 mg PO DAILY 12/08/2407/04 History bisacodyl 10 mg rectal suppository 10 mg MT QDAY PRN c onstipation 12/08/24 12/08/24 History (Dulcolax (bisacodyl)) calcium carbonate 500 mg PO QID 12/08/2412/08 History calcium carbonate (Antacid 200 mg PO QDAY 12/08/2407/04 History (calcium carbonate)) calcium carbonate (Calcium 500) 500 mg PO QDAY 5 12/08/24 History dexamethasone 4 mg tablet 4 mg PO BID 12/08/24 5 History diphenhydramine 25 1 tab PO HS PRN sleep 12/08/24 History mg-acetaminophen 500 mg tablet (Tylenol PM Extra Strength) emtricitabine 200 mg-tenofovir 1 tab PO Q24H 12/08/24 12/08/24 History disoproxil fumarate 300 mg tablet (Truvada) hydralazine 10 mg tablet 10 mg PO .every 6 12/08/24 0 12/08/24 History ipratropium 0.5 mg-albuterol 3 mg 3 ml inhalation Q4H PRN shortness 12/08/24 12/08/24 History (2.5 mg base)/3 mL nebulization of breath soln lidocaine 5 % topical patch See Rx Instructions topica l 12/08/24 12/08/24 History .COMPLEX magnesium aspart,citrate,oxide 400 mg PO DAILY 5 12/08/24 History magnesium hydroxide 400 mg/5 mL 30 ml PO PRN PRN const ipation 12/08/24 12/08/24 History oral suspension (Milk of Magnesia) melatonin 3 mg tablet 3 mg PO HS 12/08/24 12/08/24 History ondansetron 4 mg disintegrating 4 mg PO QDAY 12/08/24 12/08/24 History tablet sennosides 8.6 mg tablet (senna) 8.6 mg PO BID 5 12/08/24 History sodium phosphates 19 gram-7 118 ml MT QDAY PRN constip ation 12/08/24 12/08/24 History gram/197 mL enema (Fleet Enema Extra) Allergies Allergy/AdvReac Type Severity Reaction Status Date / Time apple Allergy Intermediate Hives Verified 12/08/24 13:05 bergman Allergy Intermediate Hives Verified 12/08/24 13:05 melon Allergy Intermediate Hives Verified 12/08/24 13:05 peach Allergy Intermediate Hives Verified 12/08/24 13:05 coconut Allergy Verified 12/08/24 13:05 nectarine Allergy Hives Verified 12/08/24 13:05 plum Allergy Verified 12/08/24 13:05 Visit Medications Acetaminophen (Acetaminophen 325 Mg Tablet) 650 mg PO Q6H PRN PRN Reason: Fever >100.4 Stop: 01/07/25 00:23 Acetaminophen (Acetaminophen 325 Mg Tablet) 650 mg PO Q6H PRN PRN Reason: PAIN SCALE 1-3 (mild Stop: 01/07/25 00:23 Last Admin: 12/08/24 18:19 Dose: 650 mg Hydrocodone Bitart/Acetaminophen (Hydrocodone/Apap 5/325 Tablet) 1 tab PO Q4HR PRN PRN Reason: PAIN SCALE 4-6 (Moderate Stop: 12/13/24 00:23 Emtricitabine/Tenofovir (Emtricitabine 200 Mg/Tenofovir 300 Mg Tab (Non-Form)) 1 tab PO QDAY IZABEL Stop: 12/16/24 08:59 Last Admin: 12/09/24 09:33 Dose: 1 tab Hydrocortisone Sodium Succinate (Hydrocortisone Sod Succ Inj 100 Mg Vial) 100 mg IV Q6HR IZABEL Stop: 01/08/25 08:59 Last Admin: 12/09/24 11:57 Dose: 100 mg Piperacillin/Tazobactam/Dextrose (Zosyn) 3.375 gm in 50 mls @ 100 mls/hr IV Q8HR IZABEL Stop: 12/15/24 00:31 Last Admin: 12/09/24 14:14 Dose: 100 mls/hr Vancomycin HCl (Vancomycin/Water 1250 Mg Ivpb) 250 mls @ 120 mls/hr IV Q12H IZABEL; Protocol Stop: 12/15/24 09:59 Last Admin: 12/09/24 11:20 Dose: 120 mls/hr Ondansetron HCl (Ondansetron Inj 2 Mg/Ml Inj 2 Ml) 4 mg IVP Q6H PRN; Protocol PRN Reason: NAUSEA OR VOMITING Stop: 01/07/25 00:23 Pharmacy Consult (Vancomycin Pharmacy To Dose 1 Each Each) 1 each IV QDAY PRN PRN Reason: RX Stop: 01/07/25 08:59 Discontinued Medications Digoxin (Digoxin 0.125 Mg Tablet) 0.125 mg PO X1 ONE Stop: 12/09/24 12:35 Last Admin: 12/09/24 12:39 Dose: Not Given Digoxin (Digoxin 0.125 Mg Tablet) 0.25 mg PO X1 ONE Stop: 12/09/24 12:38 Last Admin: 12/09/24 13:11 Dose: 0.25 mg Diltiazem HCl (Diltiazem Inj 5 Mg/Ml Vial 5 Ml) 10 mg IV X1 ONE Stop: 12/09/24 08:28 Last Admin: 12/09/24 08:40 Dose: 10 mg Vancomycin/Sodium Chloride (Vancomycin/Ns 1 Gm Ivpb) 200 mls @ 120 mls/hr IV X1 ONE Stop: 12/07/24 18:08 Last Admin: 12/07/24 18:32 Dose: 120 mls/hr Piperacillin/Tazobactam/Dextrose (Zosyn) 3.375 gm in 50 mls @ 100 mls/hr IV X1 ONE Stop: 12/07/24 16:59 Last Infusion: 12/07/24 17:30 Dose: Infused Sodium Chloride (Ns) 1,000 mls @ 999 mls/hr IV .Q1H1M ONE Stop: 12/08/24 01:15 Last Admin: 12/08/24 02:30 Dose: 999 mls/hr Sodium Chloride (Ns) 1,000 mls @ 75 mls/hr IV .[id number] IZABEL Stop: 12/08/24 13:49 Last Admin: 12/08/24 04:38 Dose: 75 mls/hr Vancomycin/Sodium Chloride (Vancomycin/Ns 1 Gm Ivpb) 200 mls @ 120 mls/hr IV X1 ONE Stop: 12/08/24 02:24 Last Admin: 12/08/24 02:37 Dose: Not Given Sodium Chloride (Ns) 500 mls @ 999 mls/hr IV .Q31M ONE Stop: 12/09/24 08:08 Last Admin: 12/09/24 08:30 Dose: 999 mls/hr Magnesium Sulfate (Magnesium Sulfate Ivpb) 4 gm in 50 mls @ 12.5 mls/hr IV X1 ONE Stop: 12/09/24 12:27 Last Admin: 12/09/24 08:41 Dose: 12.5 mls/hr Sodium Chloride (Ns) 500 mls @ 999 mls/hr IV .Q31M ONE Stop: 12/09/24 09:28 Last Admin: 12/09/24 09:24 Dose: 999 mls/hr Lactated Ringer's (Lactated Ringers) 1,000 mls @ 999 mls/hr IV .Q1H1M ONE Stop: 12/09/24 13:28 Last Admin: 12/09/24 12:33 Dose: 999 mls/hr Lidocaine HCl (Lidocaine Hcl 1% 20 Ml Vial) 10 ml INFL X1 ONE Stop: 12/07/24 16:24 Last Admin: 12/07/24 16:56 Dose: 10 ml Assessment & Plan Plan A 69-year-old male with significant past medical history of hypertension, hyperlipidemia, CAD status post 2 stents in 2003, recent ICH in 09/2024 currently residing in nursing facility was brought to the hospital with chief complaints of worsening of his ulcer and swelling on his buttocks since 1 week and cardiology is consulted for paroxysmal atrial fibrillation # Paroxysmal atrial fibrillation ---> reverted to normal sinus rhythm - Patient is admitted to the hospital for gluteal cellulitis and abscess - Patient was supposed to go to surgery on 12/09/2024, but developed tachycardia with heart rate around 150 and mild altered sensorium before going to the surgery - Telemetry strips showed atrial fibrillation with rapid ventricular rate - Patient received 3.5 L of fluid in total, 1 diltiazem IV push and 1 dose of digoxin 0.25 mg - Patient reverted to normal sinus rhythm after fluid resuscitation and medications - Cardiology is consulted as patient had previous history of CAD and tachyarrhythmia - [id number] is 5, has bled score is 4 Plan - Recommended to continue telemetry monitoring - Recommended to give adequate IV hydration to the patient - [id number] is high, no need of anticoagulation as of now as the paroxysmal A-fib seems to be occurring in the setting of ongoing abscess. -Recommended to treat underlying abscess with incision and drainage, antibiotics - Echocardiogram - Patient can proceed with the surgery and cleared from cardiology - Keep magnesium greater than 2 and potassium greater than 4 # History of CAD s/p stenting - Patient had extensive family history of CAD in his family - Patient underwent 2 stents placement in 2003 Plan - Recommend to continue aspirin and statin # History of hypertension - Patient's blood pressure is within normal limits during the hospital stay without any medications Plan - Recommended to continue to monitor blood pressures and start medications as needed Patient plan of care was discussed with Technical Sales Support Manager Dr. Gilbert Wang, PGY2
--- NOTE | 2024-12-09 16:56 | EVENTNT_ITS ---
Documentation for date of: 12/09/24 Event Note Event Note: Event note for Rapid Response 7: 30 AM Rapid response was called this morning as patient was found confused and not at his baseline which is AO x 3. He was not responding to questions appropriately. Vitals showed blood pressure 84/56 heart rate 100 bpm and desaturating at 85% on room air. He was placed on 6 L nasal cannula which improved his oxygen status. Patient was given 1 L bolus of NS x 1. Stroke alert was initiated and patient was taken to CT brain without contrast to evaluate any new symptoms of stroke given history of hemorrhagic stroke in September 2024. Teleneuro saw the patient and based on their assessment they did not recommend stroke workup due to the low suspicion for another stroke. While performing CT brain, patient heart rate was elevated in 170s and EKG was performed which showed A-fib with RVR. Labs revealed leukocytosis white count 18.4, hemoglobin 14.2. Platelet count 129. Chemistry panel showed mild hyponatremia sodium 128, potassium 3.6. Kidney functions showed BUN 49 creatinine 0.6. Blood glucose 92. Corrected calcium 8.2. Magnesium 1.7. Troponin I 0.051. CRP was elevated at 19.9. Procalcitonin 0.17. HIV antibody negative. Patient was back to baseline AO x 2 [time and place] when he was moved to his room. Patient was given diltiazem 10 mg IV x 1 and 4 g Mg x1 for controling heart rate.post diltiazem which dropped his blood pressure with MAP 68 after an hour. On medication review from rehab facility, patient missed his dose of dexamethasone 4 mg twice daily for last 2 days which was started by neurosurgeon at [facility] in September 2024 hence he was given stress dose of hydrocortisone 100 mg every 6 already for concern of adrenal suppression. ICU was notified and Operations Executive recommended to perform bedside US to evaluate IVC and see if we can administer fluids.Limited bedside ultrasound was performed which showed collapsible IVC. Therefore, he was given another 1 L bolus of LR and digoxin 0.25 mg x 1. After that, blood pressure improved around 120/73, heart rate 120. Saturating 96% on 5 L NC. Chest x-ray showed diffuse bilateral pneumonia more severe in the right lung with moderate vascular congestion. Repeat EKG showed sinus tachycardia with QTc 462. He has been maintaining stable vitals. Neurology has been consulted for discussion regarding steroid therapy for prevention of cerebral edema for intracranial bleed and will follow-up with MRI brain with and without contrast per neuro recs. Will be getting medical records from [facility] for more information on steroid therapy. Patient was discussed with attending physician, Dr. Keyur Espinosa MD, PGY 3
--- NOTE | 2024-12-09 18:28 | ESPR_ITS ---
<Statement entered by Omega Baer MD - 12/11/24 09:35> I have discussed and was present for the essential components of the history, physical examination, diagnosis, and treatment plan with the resident. I agree with the patient's care as documented by the resident and amended herein by me. Omega Baer MD FACP. <Statement entered by Mckay Espinosa MD - 12/09/24 21:12> I discussed and supervised with the international marketing coordinator physician who took care of this patient. I personally saw and examined the patient. I agree with most of the assessment and plan. Disclaimer: Despite multiple revisions, due to the dictation software being used, the document bellow may not be free of grammatical errors including phonetic/typographic errors. However, this does not deter from our commitment to providing health care in the patient's best interest in mind. Plan of care discussed with attending Physician Dr. Keyur Espinosa MD PGY-3 Documentation for date of: 12/09/24 Subjective Subjective Interval history: This morning patient was not responding appropriately and was found to have decreased oxygenation saturation at 84% and blood pressure decrease to 84/56. A rapid response called for them. Refer to the separate event not for further information. Exam Vital Signs Temp Pulse Resp BP Pulse Ox O2 Del Method O2 Flow Rate 97.4 F 88 14 93/69 95 Nasal Cannula 5 12/09/24 16:00 12/09/24 16:00 12/09/24 16:12/09/24 16:00 12/09/24 16:12/09/24 16:12/09/24 12:00 Narrative Exam General: A/O x2, no acute distress Lungs: Clear SHIVA to auscultation and percussion, No accessory muscle use. Cardio: Normal S1/S2, regular rhythm, no murmurs, no JVD Abdomen: Soft, non-tender, no palpable masses, peristalsis present, no guarding or rebound. Extremities: Symmetrical, no significant deformities, no peripheral edema , non-tender, peripheral pulses presents. Skin: No rashes, no lesions, warm to touch, 10x12 cm indurated mass nonfluctuating at the R side of the intergluteal cleft. Neuro: L sided weakness compared to the R side, No facial asymmetry, No sensory deficits, able to follow commands and move all extremities Psych: Slow response Objective Labs 12/09/24 07:38 12/09/24 07:38 Labs: Laboratory Results - last 24 hr 12/09/24 12/09/24 12/09/24 05:21 07:38 09:04 WBC 16.7 H 18.4 H RBC 4.67 4.53 Hgb 14.6 14.2 Hct 39.9 L 38.9 L MCV 85 86 MCH 31.3 31.3 MCHC 36.6 36.5 RDW Std Deviation 46.2 H 46.2 H Plt Count 127 L 129 L Neut % (Auto) 75 77 Lymph % (Auto) 17 15 [place] % (Auto) 3 3 Eos % (Auto) 0 0 Baso % (Auto) 1 0 Neut # (Auto) 12.5 H 14.1 H Lymph # (Auto) 2.8 2.8 [place] # (Auto) 0.5 0.5 Eos # (Auto) 0.1 0.0 Baso # (Auto) 0.1 0.1 Immature Gran # (Auto) 0.72 H 0.83 H Absolute Nucleated RBC 0.00 0.00 Immature Gran % 4 H 5 H Nucleated RBC % 0 0 ESR 25 H PT 11.9 INR 1.1 APTT 30.8 Puncture Site ABG pH ABG pCO2 ABG pO2 ABG HCO3 ABG O2 Saturation ABG Base Excess Oxygen Liter Flow FiO2 Sodium 129 L 128 L Potassium 3.6 3.6 Chloride 98 101 Carbon Dioxide 22.4 19.1 L Anion Gap 9 8 BUN 13 14 Creatinine 0.6 0.6 Estim Creat Clear Calc 120.0 120.0 eGFR > 60 > 60 BUN/Creatinine Ratio 22 H 23 H Glucose 81 92 Calculated Osmolality 258 L 257 L Lactic Acid 1.1 Calcium 8.2 L 8.2 L Corrected Calcium 8.8 8.9 Magnesium 1.7 Total Bilirubin 1.4 H D 1.6 H AST 22 21 ALT 44 42 Alkaline Phosphatase 85 78 Troponin I 0.051 H* C-Reactive Prot, Quant 19.9 H B-Natriuretic Peptide 43 Total Protein 5.7 5.5 L Albumin 3.2 L 3.1 L Globulin 2.5 2.4 Albumin/Globulin Ratio 1.3 1.3 Procalcitonin 0.17 Vancomycin Trough 11.0 H HIV 1&2 Antibody Rapid Non-Reactive 12/09/24 11:24 WBC RBC Hgb Hct MCV MCH MCHC RDW Std Deviation Plt Count Neut % (Auto) Lymph % (Auto) [place] % (Auto) Eos % (Auto) Baso % (Auto) Neut # (Auto) Lymph # (Auto) [place] # (Auto) Eos # (Auto) Baso # (Auto) Immature Gran # (Auto) Absolute Nucleated RBC Immature Gran % Nucleated RBC % ESR PT INR APTT Puncture Site Left Radial ABG pH 7.44 ABG pCO2 29 L ABG pO2 108 ABG HCO3 20 ABG O2 Saturation 99 H ABG Base Excess -3 Oxygen Liter Flow 6 FiO2 21 Sodium Potassium Chloride Carbon Dioxide Anion Gap BUN Creatinine Estim Creat Clear Calc eGFR BUN/Creatinine Ratio Glucose Calculated Osmolality Lactic Acid Calcium Corrected Calcium Magnesium Total Bilirubin AST ALT Alkaline Phosphatase Troponin I C-Reactive Prot, Quant B-Natriuretic Peptide Total Protein Albumin Globulin Albumin/Globulin Ratio Procalcitonin Vancomycin Trough HIV 1&2 Antibody Rapid ABG Interpretation ABG results: 12/09/24 11:24 ABG pH 7.44 ABG pCO2 29 L ABG pO2 108 ABG HCO3 20 ABG O2 Saturation 99 H ABG Base Excess -3 Quality Measures Quality Measures sepsis (White count 20.6, lactic 2.3, CRP 3.5, procalcitonin 0.07.) Current suspected stage: ruled out Possible source: skin/soft tissue Blood cultures ordered: yes Antibiotic ordered: Yes Advance care planning discussed with:: patient Assessment & Plan Assessment Current Active Medications: Generic Name Dose Route Start Last Admin Trade Name Freq PRN Reason Stop Dose Admin Acetaminophen 650 mg 12/08/24 00:24 Acetaminophen 325 Mg Tablet PO 01/07/25 00:23 Q6H PRN Fever >100.4 Acetaminophen 650 mg 12/08/24 00:24 12/08/24 18:19 Acetaminophen 325 Mg Tablet PO 01/07/25 00:23 650 mg Q6H PRN Administration PAIN SCALE 1-3 (mild Hydrocodone Bitart/Acetaminophen 1 tab 12/08/24 00:24 Hydrocodone/Apap 5/325 Tablet PO 12/13/24 00:23 Q4HR PRN PAIN SCALE 4-6 (Moderate Emtricitabine/Tenofovir 1 tab 12/09/24 09:00 12/09/24 09:33 Emtricitabine 200 Mg/Tenofovir 300 Mg Tab (Non-Form) PO 12/16/24 08:59 1 tab QDAY IZABEL Administration Hydrocortisone Sodium Succinate 100 mg 12/09/24 09:00 12/09/24 18:06 Hydrocortisone Sod Succ Inj 100 Mg Vial IV 01/08/25 08:59 100 mg Q6HR IZABEL Administration Piperacillin/Tazobactam/Dextrose 3.375 gm in 50 mls @ 100 mls/hr 12/08/24 00:32 12/09/24 14:14 Zosyn IV 12/15/24 00:31 100 mls/hr Q8HR IZABEL Administration Vancomycin HCl 250 mls @ 120 mls/hr 12/08/24 10:00 12/09/24 11:20 Vancomycin/Water 1250 Mg Ivpb IV 12/15/24 09:59 120 mls/hr Q12H IZABEL Administration Protocol Ondansetron HCl 4 mg 12/08/24 00:24 Ondansetron Inj 2 Mg/Ml Inj 2 Ml IVP 01/07/25 00:23 Q6H PRN NAUSEA OR VOMITING Protocol Pharmacy Consult 1 each 12/08/24 09:00 Vancomycin Pharmacy To Dose 1 Each Each IV 01/07/25 08:59 QDAY PRN RX Plan Plan 69-year-old male with past medical history of hypertension, hyperlipidemia, CAD s/p 2 stents, and recent intracranial hemorrhage on 10/01/2024, admitted for management of right buttock cellulitis. #Hypotension, resolving #New Onset A-fib RVR, currently rate controlled #Acute encephalopathy likely multifactorial, resolved As noted in the event note, Rapid response was called this morning as patient was found confused and not at his baseline which is AO x 3. He was not responding to questions appropriately. Vitals showed blood pressure 84/56 heart rate 100 bpm and desaturating at 85% on room air. He was placed on 6 L nasal cannula which improved his oxygen status. Patient was given 1 L bolus of NS x 1. Stroke alert was initiated and patient was taken to CT brain without contrast to evaluate any new symptoms of stroke given history of hemorrhagic stroke in September 2024. Teleneuro saw the patient and based on their assessment they did not recommend stroke workup due to the low suspicion for another stroke. While performing CT brain, patient heart rate was elevated in 170s and EKG was performed which showed A-fib with RVR. Labs revealed leukocytosis white count 18.4, hemoglobin 14.2. Platelet count 129. Chemistry panel showed mild hyponatremia sodium 128, potassium 3.6. Kidney functions showed BUN 49 creatinine 0.6. Blood glucose 92. Corrected calcium 8.2. Magnesium 1.7. Troponin I 0.051. CRP was elevated at 19.9. Procalcitonin 0.17. HIV antibody negative. Patient was back to baseline AO x 2 [time and place] when he was moved to his room. Patient was given diltiazem 10 mg IV x 1 and 4 g Mg x1 for controling heart rate post diltiazem which dropped his blood pressure with MAP 68 after an hour. On medication review from rehab facility, patient missed his dose of dexamethasone 4 mg twice daily for last 2 days which was started by neurosurgeon at [facility] in September 2024 hence he was given stress dose of hydrocortisone 100 mg every 6 already for concern of adrenal suppression. ICU was notified and Inorganic Chemical Technician recommended to perform bedside US to evaluate IVC and see if we can administer fluids.Limited bedside ultrasound was performed which showed collapsible IVC. Therefore, he was given another 1 L bolus of LR and digoxin 0.25 mg x 1. After that, blood pressure improved around 120/73, heart rate 120. Saturating 96% on 5 L NC. Chest x-ray showed diffuse bilateral pneumonia more severe in the right lung with moderate vascular congestion. Repeat EKG showed sinus tachycardia with QTc 462. He has been maintaining stable vitals. Patient's CHADSVASC score w Neurology has been consulted for discussion regarding steroid therapy for prevention of cerebral edema for intracranial bleed and will follow-up with MRI brain with and without contrast per neuro recs. Will be getting medical records from [facility] for more information on steroid therapy. Patient's CHADSVASC score of 5, but given recent intracranial bleeding in 09/2024, anticoagulation is contraindicated. #Right buttock cellulitis #Leukocytosis #Lactic acidosis, resolved Patient came in with initial complaints of pain in the right buttocks Abdomen/pelvis CT showed perianal inflammation which extends to the inter gluteal fold with cellulitis primarily the right buttock region, no fluid-filled drainable abscess. In the ED patient received vancomycin and Zosyn x 1 Negative acid was 2.3 and downtrended to 1.3 WBCs downtrended to 17.3 from 20.6. Patient did not have any fevers, tachycardia, or any signs of systemic inflammatory response other than WBC elevation. Surgery was consulted and recommended IV Abx Plan: Continue Vanco and Zosyn Follow Up Blood cultures Wound care IV fluids Frequent patient repositioning Surgery consulted,will plan for incision and drainage for decompression tomorrow Chronic disease: #Hx of hypertension #Hx of CAD s/p stents #Hx of ICH Blood pressure has been stable since came into the ED. Patient's home medication includes atenolol 25 mg q daily and atorvastatin 40 mg q daily. Blood pressure has been well controlled, will add anti-hypertensives as necessary. Disposition: Patient admitted to med surg for R buttock cellulitis. Diet: Cardiac GI prophylaxis: not indicated DVT prophylaxis: SCDs due to recent ICH Code: Full Plan Discussed with Dr. Keyur Bautista MD PGY-1 Internal Medicine
--- NOTE | 2024-12-09 22:41 | PD.RESPRO ---
Documentation for date of: 12/09/24 Subjective Subjective Interval history: Mr. Akhtar is a 69 year old male with past medical history of hypertension, hyperlipidemia, CAD s/p 2 stents, and recent intracranial hemorrhage on 10/01/2024 who was admitted for right buttock cellulitis pending I&D 12/10. Neurology consulted for came into the ED with complaints of buttocks pain. Patient stated that today he started having some pain on his coccygeal area and decided to come to the ED. Patient states he just noticed today and that he has not had any fevers, chills, sweats, purulent discharge, rectal pain, pain with defecation, or has not noticed any staining on the undergarments. Patient states that since his intracranial hemorrhage he has been mostly in bed and is currently at a rehab center getting physical therapy. On assessment patient does appear to have a 10 x 12 cm indurated mass superiorly and distally to the gluteal cleft, which was not tender on palpation and was mobile. The mass was nonfluctuating and no drainage was seen with palpation. There was some minor blood tinge and possible pus, but seems most likely from friction then actual discharge from the mass. Patient appeared nontoxic and has not had any fevers nor has had any systematic inflammatory response. Otherwise patient has no new complaints at this time. Denies having any chest pain, shortness of breath, new neurological deficits, abdominal pain, or nausea or vomiting. ED course: Initially came in afebrile and normotensive. Initial labs were evaluated for leukocytosis (20.6), lactic acidosis (2.3 and downtrended to 1.3), elevated CRP (3.5), and negative procalcitonin. Initial imaging included abdomen/pelvis CT which showed perianal inflammation which extends to the inter gluteal fold with cellulitis primarily the right buttock region, no fluid-filled drainable abscess. ED consulted surgery who recommended admission for IV abx. PMH: As above Medications: Patient states that he takes aspirin 81 mg, rest of medication pending reconciliation Social Hx: Denies any illicit drugs, smoking, admits social drinking Surgical Hx: Stents and appendectomy Exam Vital Signs Temp Pulse Resp BP Pulse Ox O2 Del Method O2 Flow Rate 97.4 F 80 16 100/72 95 Nasal Cannula 5 12/09/24 20:00 12/09/24 20:00 12/09/24 20:00 12/09/24 20:00 12/09/24 20:00 12/09/24 16:00 12/09/24 12:00 Objective Labs 12/09/24 07:38 12/09/24 07:38 Labs: Laboratory Results - last 24 hr 12/09/24 12/09/24 12/09/24 05:21 07:38 09:04 WBC 16.7 H 18.4 H RBC 4.67 4.53 Hgb 14.6 14.2 Hct 39.9 L 38.9 L MCV 85 86 MCH 31.3 31.3 MCHC 36.6 36.5 RDW Std Deviation 46.2 H 46.2 H Plt Count 127 L 129 L Neut % (Auto) 75 77 Lymph % (Auto) 17 15 [place] % (Auto) 3 3 Eos % (Auto) 0 0 Baso % (Auto) 1 0 Neut # (Auto) 12.5 H 14.1 H Lymph # (Auto) 2.8 2.8 [place] # (Auto) 0.5 0.5 Eos # (Auto) 0.1 0.0 Baso # (Auto) 0.1 0.1 Immature Gran # (Auto) 0.72 H 0.83 H Absolute Nucleated RBC 0.00 0.00 Immature Gran % 4 H 5 H Nucleated RBC % 0 0 ESR 25 H PT 11.9 INR 1.1 APTT 30.8 Puncture Site ABG pH ABG pCO2 ABG pO2 ABG HCO3 ABG O2 Saturation ABG Base Excess Oxygen Liter Flow FiO2 Sodium 129 L 128 L Potassium 3.6 3.6 Chloride 98 101 Carbon Dioxide 22.4 19.1 L Anion Gap 9 8 BUN 13 14 Creatinine 0.6 0.6 Estim Creat Clear Calc 120.0 120.0 eGFR > 60 > 60 BUN/Creatinine Ratio 22 H 23 H Glucose 81 92 Calculated Osmolality 258 L 257 L Lactic Acid 1.1 Calcium 8.2 L 8.2 L Corrected Calcium 8.8 8.9 Magnesium 1.7 Total Bilirubin 1.4 H D 1.6 H AST 22 21 ALT 44 42 Alkaline Phosphatase 85 78 Troponin I 0.051 H* C-Reactive Prot, Quant 19.9 H B-Natriuretic Peptide 43 Total Protein 5.7 5.5 L Albumin 3.2 L 3.1 L Globulin 2.5 2.4 Albumin/Globulin Ratio 1.3 1.3 Procalcitonin 0.17 Vancomycin Trough 11.0 H HIV 1&2 Antibody Rapid Non-Reactive 12/09/24 11:24 WBC RBC Hgb Hct MCV MCH MCHC RDW Std Deviation Plt Count Neut % (Auto) Lymph % (Auto) [place] % (Auto) Eos % (Auto) Baso % (Auto) Neut # (Auto) Lymph # (Auto) [place] # (Auto) Eos # (Auto) Baso # (Auto) Immature Gran # (Auto) Absolute Nucleated RBC Immature Gran % Nucleated RBC % ESR PT INR APTT Puncture Site Left Radial ABG pH 7.44 ABG pCO2 29 L ABG pO2 108 ABG HCO3 20 ABG O2 Saturation 99 H ABG Base Excess -3 Oxygen Liter Flow 6 FiO2 21 Sodium Potassium Chloride Carbon Dioxide Anion Gap BUN Creatinine Estim Creat Clear Calc eGFR BUN/Creatinine Ratio Glucose Calculated Osmolality Lactic Acid Calcium Corrected Calcium Magnesium Total Bilirubin AST ALT Alkaline Phosphatase Troponin I C-Reactive Prot, Quant B-Natriuretic Peptide Total Protein Albumin Globulin Albumin/Globulin Ratio Procalcitonin Vancomycin Trough HIV 1&2 Antibody Rapid ABG Interpretation ABG results: 12/09/24 11:24 ABG pH 7.44 ABG pCO2 29 L ABG pO2 108 ABG HCO3 20 ABG O2 Saturation 99 H ABG Base Excess -3 Quality Measures Quality Measures sepsis (White count 20.6, lactic 2.3, CRP 3.5, procalcitonin 0.07.) Possible source: skin/soft tissue Blood cultures ordered: yes Assessment & Plan Assessment Current Active Medications: Generic Name Dose Route Start Last Admin Trade Name Freq PRN Reason Stop Dose Admin Acetaminophen 650 mg 12/08/24 00:24 Acetaminophen 325 Mg Tablet PO 01/07/25 00:23 Q6H PRN Fever >100.4 Acetaminophen 650 mg 12/08/24 00:24 12/08/24 18:19 Acetaminophen 325 Mg Tablet PO 01/07/25 00:23 650 mg Q6H PRN Administration PAIN SCALE 1-3 (mild Hydrocodone Bitart/Acetaminophen 1 tab 12/08/24 00:24 Hydrocodone/Apap 5/325 Tablet PO 12/13/24 00:23 Q4HR PRN PAIN SCALE 4-6 (Moderate Emtricitabine/Tenofovir 1 tab 12/09/24 09:00 12/09/24 09:33 Emtricitabine 200 Mg/Tenofovir 300 Mg Tab (Non-Form) PO 12/16/24 08:59 1 tab QDAY IZABEL Administration Hydrocortisone Sodium Succinate 100 mg 12/09/24 09:00 12/09/24 18:06 Hydrocortisone Sod Succ Inj 100 Mg Vial IV 01/08/25 08:59 100 mg Q6HR IZABEL Administration Piperacillin/Tazobactam/Dextrose 3.375 gm in 50 mls @ 100 mls/hr 12/08/24 00:32 12/09/24 22:25 Zosyn IV 12/15/24 00:31 100 mls/hr Q8HR IZABEL Administration Vancomycin HCl 250 mls @ 120 mls/hr 12/08/24 10:00 12/09/24 11:20 Vancomycin/Water 1250 Mg Ivpb IV 12/15/24 09:59 120 mls/hr Q12H IZABEL Administration Protocol Ondansetron HCl 4 mg 12/08/24 00:24 Ondansetron Inj 2 Mg/Ml Inj 2 Ml IVP 01/07/25 00:23 Q6H PRN NAUSEA OR VOMITING Protocol Pharmacy Consult 1 each 12/08/24 09:00 Vancomycin Pharmacy To Dose 1 Each Each IV 01/07/25 08:59 QDAY PRN RX
--- NOTE | 2024-12-09 22:50 | PD.RESCONSUL ---
HPI Data of Consult Requesting Physician: Omega Baer MD Admitting Provider: Familia Kam MD Attending Provider: Omega Baer MD Primary Care Provider: Physician No Primary/Family Consult Narrative History of present illness: Mr. Akhtar is a 69 year old male with past medical history of hypertension, hyperlipidemia, CAD s/p 2 stents, and recent intracranial hemorrhage on 10/01/2024 (treated in [place]) who was admitted for right buttock cellulitis pending I&D 12/10. Patient reports that he was prescribed corticosteroids post intracranial hemorrhage. Neurology consulted for assessment of further management of steroid dosing in the setting of recent intracranial hemorrhage. Primary team requested records from [facility], pending records. Patient has residual left-sided upper and lower extremity weakness, no new or worsening symptoms of ICH reported today. cc:: cc: Omega Baer MD Review of Systems Review of Systems Narrative Review of Systems: Constitutional: Denies fevers, chills, weight loss or gain Skin: +right buttock cellulitis Eyes: Denies change in vision, double vision HENT: Denies changes in vision, rhinorrhea, nasal congestion, sore throat, change in voice Respiratory: Denies cough, shortness of breath Cardiovascular: Denies palpitations, chest tightness or pain, orthopnea, lower extremity swelling, leg cramping GI: Denies difficulty with swallowing, acid reflux, change in appetite, nausea, vomiting, change in bowel movements, blood in stool : Denies dysuria, increased urgency or frequency MSK: Denies acute pain in joints or muscles Neurological: +difficulty with focus and engaging in conversation (per at bedside) Endocrine: Denies heat or cold intolerance, excessive hunger or thirst Psych: Denies anxiety, depressed mood, decreased need for sleep, SI/HI Exam Vital Signs Temp Pulse Resp BP Pulse Ox O2 Del Method O2 Flow Rate 97.4 F 80 16 100/72 95 Nasal Cannula 5 12/09/24 20:00 12/09/24 20:00 12/09/24 20:00 12/09/24 20:00 12/09/24 20:00 12/09/24 16:00 12/09/24 12:00 Narrative Exam General: No acute distress, well nourished HENT: Normocephalic, normal hearing, moist oral mucosa Lungs: Non-labored respirations, symmetric chest rise Heart: Peripheral pulses intact bilaterally, capillary refill brisk distally Abdomen: Non-distended, normal bowel sounds, no masses Musculoskeletal: Normal range of motion Psychiatric: Cooperative, appropriate mood and affect Neurological: Mental status: Orientation: Oriented to person, place, time, and situation Communication: Patient is cooperative and can follow simple instructions Language: Speech fluent, normal rate and volume, comprehension intact Cranial nerves: CN II: Visual reynolds intact CN III: Pupils equal, round, and reactive to light CN III, IV, : No gaze deviation, no nystagmus Horizontal pursuit: intact Vertical pursuit: intact Ptosis: none CN V: Facial sensation to light touch intact bilaterally at the forehead, cheeks, and jaw line CN VII: Face symmetric, no facial droop appreciated CN VIII: Able to hear and respond to conversation at normal volume CN IX, X: Palate elevation symmetric, uvula midline CN XI: Head turn and shoulder shrug strong, symmetric bilaterally CN XII: Normal tongue protrusion without deviation, no fasciculations Motor: Normal bulk and tone No abnormal movements or fasciculations Muscle strength: Shoulder abduction: R 5/5 L 4/5 Elbow flexion: R 5/5 L 4/5 Elbow extension: R 5/5 L 4/5 Hip flexion: R 5/5 L 2/5 Hip extension: R 5/5 L 2/5 Sensory: RUE: Light touch intact LUE: Light touch intact RLE: Light touch intact LLE: Light touch intact Reflexes: Biceps (C5-6): R 2+ L 2+ Brachioradialis (C5-6): R 2+ L 2+ Triceps (C7-8): R 2+ L 2+ Patellae (L3-4): R 2+ L 2+ Achilles (S1-2):R 2+ L 2+ No clonus Plantar reflex downgoing bilaterally Cerebellum: RUE: No dysmetria (finger to nose), no dysdiadochokinesia (rapid alternating movements) LUE: No dysmetria (finger to nose), no dysdiadochokinesia (rapid alternating movements) RLE: No dysmetria (heel to izquierdo) LLE: Unable to assess due to weakness Romberg: deferred Gait: deferred Results Labs 12/09/24 07:38 12/09/24 07:38 Labs: Short CBC 12/09/24 12/09/24 Range/Units 05:21 07:38 WBC 16.7 H 18.4 H (3.8-10.6) Thou/mm3 Hgb 14.6 14.2 (13.5-16.0) g/dL Hct 39.9 L 38.9 L (41.0-53.0) % Plt Count 127 L 129 L (140-440) Thou/mm3 BMP 12/09/24 12/09/24 05:21 07:38 Sodium 129 L 128 L Potassium 3.6 3.6 Chloride 98 101 Carbon Dioxide 22.4 19.1 L BUN 13 14 Creatinine 0.6 0.6 Glucose 81 92 Calcium 8.2 L 8.2 L Cardiac Enzymes 12/09/24 Range/Units 07:38 Troponin I 0.051 H* (0.0-0.045) ng/mL Liver Function 12/09/24 12/09/24 Range/Units 05:21 07:38 Total Bilirubin 1.4 H D 1.6 H (0.3-1.2) mg/dL AST 22 21 (0-34) U/L ALT 44 42 (10-49) U/L Alkaline Phosphatase 85 78 (46-116) U/L Albumin 3.2 L 3.1 L (3.4-4.8) gm/dL ABG Interpretation ABG results: 12/09/24 11:24 ABG pH 7.44 ABG pCO2 29 L ABG pO2 108 ABG HCO3 20 ABG O2 Saturation 99 H ABG Base Excess -[address] scan - head: Additional comments: CT head w/o 12/09/24: Large area of encephalomalacia in the right frontal lobe again noted with mass effect unchanged upon the right lateral ventricle. No interval acute hemorrhage MRI - head: Additional comments: MR head/brain w + w/o 12/09/24: Large area of restricted diffusion with signal deficit consistent with infarct in the right frontal lobe with subacute hemorrhage Postcontrast images demonstrate enhancement of this mass, differential would include luxury enhancement in a right frontal infarct versus enhancement in a right frontal tumor Recommend neurology consultation and correlation with clinical findings and follow-up brain MRI studies as clinically warranted Quality Measures Quality Measures sepsis (White count 20.6, lactic 2.3, CRP 3.5, procalcitonin 0.07.) Current suspected stage: ruled out Possible source: skin/soft tissue Blood cultures ordered: yes Antibiotic ordered: Yes Advance care planning discussed with:: patient and spouse Medications Home Medications and Allergies Home Medications ?Medication ?Instructions ?Recorded ?Confirmed ?Type acetaminophen 325 mg tablet 650 mg PO Q6H PRN pain 12/08/24 12/08/24 History (Aminofen) acetaminophen 500 mg tablet 500 mg PO Q8HR PRN pain 12/08/24 12/08/24 History (Acetaminophen Extra Strength) atenolol 25 mg tablet 25 mg PO Q24H 12/08/24 12/08/24 History atorvastatin 40 mg tablet 40 mg PO DAILY 12/08/24 12/08/24 History bisacodyl 10 mg rectal suppository 10 mg OR QDAY PRN constipation 12/08/24 12/08/24 History (Dulcolax (bisacodyl)) calcium carbonate 500 mg PO QID 12/08/24 12/08/24 History calcium carbonate (Antacid 200 mg PO QDAY 12/08/24 12/08/24 History (calcium carbonate)) calcium carbonate (Calcium 500) 500 mg PO QDAY 12/08/24 12/08/24 History dexamethasone 4 mg tablet 4 mg PO BID 12/08/24 12/08/24 History diphenhydramine 25 1 tab PO HS PRN sleep 12/08/24 12/08/24 History mg-acetaminophen 500 mg tablet (Tylenol PM Extra Strength) emtricitabine 200 mg-tenofovir 1 tab PO Q24H 12/08/24 12/08/24 History disoproxil fumarate 300 mg tablet (Truvada) hydralazine 10 mg tablet 10 mg PO .every 6 12/08/24 12/08/24 History ipratropium 0.5 mg-albuterol 3 mg 3 ml inhalation Q4H PRN shortness 12/08/24 12/08/24 History (2.5 mg base)/3 mL nebulization of breath soln lidocaine 5 % topical patch See Rx Instructions topical 12/08/24 12/08/24 History .COMPLEX magnesium aspart,citrate,oxide 400 mg PO DAILY 12/08/24 12/08/24 History magnesium hydroxide 400 mg/5 mL 30 ml PO PRN PRN constipation 12/08/24 12/08/24 History oral suspension (Milk of Magnesia) melatonin 3 mg tablet 3 mg PO HS 12/08/24 12/08/24 History ondansetron 4 mg disintegrating 4 mg PO QDAY 12/08/24 12/08/24 History tablet sennosides 8.6 mg tablet (senna) 8.6 mg PO BID 12/08/24 12/08/24 History sodium phosphates 19 gram-7 118 ml OR QDAY PRN constipation 12/08/24 12/08/24 History gram/197 mL enema (Fleet Enema Extra) Allergies Allergy/AdvReac Type Severity Reaction Status Date / Time apple Allergy Intermediate Hives Verified 12/08/24 13:05 bergman Allergy Intermediate Hives Verified 12/08/24 13:05 melon Allergy Intermediate Hives Verified 12/08/24 13:05 peach Allergy Intermediate Hives Verified 12/08/24 13:05 coconut Allergy Verified 12/08/24 13:05 nectarine Allergy Hives Verified 12/08/24 13:05 plum Allergy Verified 12/08/24 13:05 Visit Medications Acetaminophen (Acetaminophen 325 Mg Tablet) 650 mg PO Q6H PRN PRN Reason: Fever >100.4 Stop: 01/07/25 00:23 Acetaminophen (Acetaminophen 325 Mg Tablet) 650 mg PO Q6H PRN PRN Reason: PAIN SCALE 1-3 (mild Stop: 01/07/25 00:23 Last Admin: 12/08/24 18:19 Dose: 650 mg Hydrocodone Bitart/Acetaminophen (Hydrocodone/Apap 5/325 Tablet) 1 tab PO Q4HR PRN PRN Reason: PAIN SCALE 4-6 (Moderate Stop: 12/13/24 00:23 Emtricitabine/Tenofovir (Emtricitabine 200 Mg/Tenofovir 300 Mg Tab (Non-Form)) 1 tab PO QDAY [facility] Stop: 12/16/24 08:59 Last Admin: 12/09/24 09:33 Dose: 1 tab Hydrocortisone Sodium Succinate (Hydrocortisone Sod Succ Inj 100 Mg Vial) 100 mg IV Q6HR [facility] Stop: 01/08/25 08:59 Last Admin: 12/09/24 18:06 Dose: 100 mg Piperacillin/Tazobactam/Dextrose (Zosyn) 3.375 gm in 50 mls @ 100 mls/hr IV Q8HR [facility] Stop: 12/15/24 00:31 Last Admin: 12/09/24 22:25 Dose: 100 mls/hr Vancomycin HCl (Vancomycin/Water 1250 Mg Ivpb) 250 mls @ 120 mls/hr IV Q12H [facility]; Protocol Stop: 12/15/24 09:59 Last Admin: 12/09/24 11:20 Dose: 120 mls/hr Ondansetron HCl (Ondansetron Inj 2 Mg/Ml Inj 2 Ml) 4 mg IVP Q6H PRN; Protocol PRN Reason: NAUSEA OR VOMITING Stop: 01/07/25 00:23 Pharmacy Consult (Vancomycin Pharmacy To Dose 1 Each Each) 1 each IV QDAY PRN PRN Reason: RX Stop: 01/07/25 08:59 Discontinued Medications Digoxin (Digoxin 0.125 Mg Tablet) 0.125 mg PO X1 ONE Stop: 12/09/24 12:35 Last Admin: 12/09/24 12:39 Dose: Not Given Digoxin (Digoxin 0.125 Mg Tablet) 0.25 mg PO X1 ONE Stop: 12/09/24 12:38 Last Admin: 12/09/24 13:11 Dose: 0.25 mg Diltiazem HCl (Diltiazem Inj 5 Mg/Ml Vial 5 Ml) 10 mg IV X1 ONE Stop: 12/09/24 08:28 Last Admin: 12/09/24 08:40 Dose: 10 mg Vancomycin/Sodium Chloride (Vancomycin/Ns 1 Gm Ivpb) 200 mls @ 120 mls/hr IV X1 ONE Stop: 12/07/24 18:08 Last Admin: 12/07/24 18:32 Dose: 120 mls/hr Piperacillin/Tazobactam/Dextrose (Zosyn) 3.375 gm in 50 mls @ 100 mls/hr IV X1 ONE Stop: 12/07/24 16:59 Last Infusion: 12/07/24 17:30 Dose: Infused Sodium Chloride (Ns) 1,000 mls @ 999 mls/hr IV .Q1H1M ONE Stop: 12/08/24 01:15 Last Admin: 12/08/24 02:30 Dose: 999 mls/hr Sodium Chloride (Ns) 1,000 mls @ 75 mls/hr IV .[id number] [facility] Stop: 12/08/24 13:49 Last Admin: 12/08/24 04:38 Dose: 75 mls/hr Vancomycin/Sodium Chloride (Vancomycin/Ns 1 Gm Ivpb) 200 mls @ 120 mls/hr IV X1 ONE Stop: 12/08/24 02:24 Last Admin: 12/08/24 02:37 Dose: Not Given Sodium Chloride (Ns) 500 mls @ 999 mls/hr IV .Q31M ONE Stop: 12/09/24 08:08 Last Admin: 12/09/24 08:30 Dose: 999 mls/hr Magnesium Sulfate (Magnesium Sulfate Ivpb) 4 gm in 50 mls @ 12.5 mls/hr IV X1 ONE Stop: 12/09/24 12:27 Last Admin: 12/09/24 08:41 Dose: 12.5 mls/hr Sodium Chloride (Ns) 500 mls @ 999 mls/hr IV .Q31M ONE Stop: 12/09/24 09:28 Last Admin: 12/09/24 09:24 Dose: 999 mls/hr Lactated Ringer's (Lactated Ringers) 1,000 mls @ 999 mls/hr IV .Q1H1M ONE Stop: 12/09/24 13:28 Last Admin: 12/09/24 12:33 Dose: 999 mls/hr Lidocaine HCl (Lidocaine Hcl 1% 20 Ml Vial) 10 ml INFL X1 ONE Stop: 12/07/24 16:24 Last Admin: 12/07/24 16:56 Dose: 10 ml Assessment & Plan Assessment #Hx of intracranial hemorrhage #Hx of hypertension Home meds: Atenolol 25 mg q daily and atorvastatin 40 mg q daily Patient has residual left-sided weakness, lower > upper extremities. No acute change in symptoms. Imaging demonstrated no acute intracranial hemorrhage. Given that patient's ICH not due to tumor, no need to continue steroids. Primary team requested records from [facility], pending reports. On medication review from rehab facility, patient missed his dose of dexamethasone 4 mg twice daily for last 2 days which was started by neurosurgeon at [facility] in September 2024. Given stress dose hydrocortisone 100 mg q6h for concern of adrenal suppression by primary team. Plan: - Steroid taper to be completed over 6 days - Support for left foot when appropriate given patient's mobility - BP managed per primary team #Hypotension, resolving #New Onset A-fib RVR, currently rate controlled #Acute encephalopathy likely multifactorial, resolved Managed per primary team Given recent ICH, anticoagulants contraindicated #Right buttock cellulitis #Leukocytosis #Lactic acidosis, resolved Scheduled for I&D 12/10/24 Plan: Managed by primary team Plan discussed with Dr. Puga. [place] Gordon, PGY1 Attending Provider Attestation/Addendum I personally seen and examined the patient at the bedside and I agreed with resident's findings, assessment and plan of care. He does have residual left hemiparesis affecting the left LE more than the UE secondary to the recent traumatic ICH with intraventricular extension and subdural hemorrhage. Patient is cleared from Neurology stand point for the surgical debridement of his gluteal abscess. Will slowly wean hm off of ecadran: 4 mg daily x3 days and 2 mg daily for 2 days and then stop. Will review the medical records from [facility].
[2024-12-10] VITALS (12 sets, daily range): BP systolic 99–143; BP diastolic 71–88; PULSE 73–95; RESP 18–25; TEMP 36.1–36.7; O2SAT 93–99
[2024-12-10] MEDS: PIPER/TAZO 3.375 GM PREMIX 3.375 GM/50 ML BAG IV ×3 (05:15→21:34)
[2024-12-10] MEDS: HYDROCORTISONE SOD SUCC INJ 100 MG VIAL IV ×2 (05:15→12:55)
[2024-12-10 05:52] LABS: Basophils # (Auto) 0.0 Thou/mm3 (0.0-0.2); Basophils % (Auto) 0 % (0-2.5); Eosinophils # (Auto) 0.0 Thou/mm3 (0.0-0.5); Eosinophils % (Auto) 0 % (0-10); Hematocrit 34.4 % (41.0-53.0); Hemoglobin 12.1 g/dL (13.5-16.0); Immature Granulocytes Auto 0.34 Thou/mm3 (0.00-0.00); Lymphocytes # (Auto) 1.3 Thou/mm3 (1.0-4.8); Lymphocytes % (Auto) 10 % (10-50); Mean Corpuscular HGB Conc 35.2 g/dl (31.0-37.0); Mean Corpuscular Hemoglobin 30.6 pg (25.0-35.0); Mean Corpuscular Volume 87 fL (80-100); Monocytes # (Auto) 0.4 Thou/mm3 (0.0-0.8); Monocytes % (Auto) 3 % (0-12); Neutrophils # (Auto) 11.4 Thou/mm3 (1.8-7.7); Neutrophils % (Auto) 85 % (37-80); Nucleated Red Blood Cell # 0.00 Thou/mm3 (0.00-0.00); Nucleated Red Blood Cell % 0 /100 WBC (0); Platelet Count 119 Thou/mm3 (140-440); RDW Standard Deviation 47.0 fL (35.1-43.9); Red Blood Count 3.96 Miln/mm3 (4.50-5.90); White Blood Count 13.5 Thou/mm3 (3.8-10.6)
[2024-12-10 06:28] LABS: Alanine Aminotransferase 31 U/L (10-49); Albumin, Serum 2.8 gm/dL (3.4-4.8); Albumin/Globulin Ratio 1.3 (1.2-2.2); Alkaline Phosphatase 68 U/L (46-116); Anion Gap 7 (7-16); Aspartate Amino Transferase 22 U/L (0-34); BUN/Creatinine Ratio 24 Ratio (12-20); Bilirubin,Total 0.5 mg/dL (0.3-1.2); Blood Urea Nitrogen 12 mg/dL (9-23); Calcium 8.1 mg/dL (8.3-10.6); Calcium (Corrected) 9.1 mg/dL (8.5-10.1); Carbon Dioxide 21.8 mMol/L (20.0-31.0); Chloride 106 mMol/L (98-107); Creatinine (Component) 0.5 mg/dL (0.6-1.3); Estimated Creatinine Clearance 144.0 mL/min (>60); Globulin 2.2 gm/dL (2.3-3.5); Glucose 120 mg/dL (74-106); Magnesium 2.2 mg/dL (1.6-2.6); Osmolality,Calculated 270 (275-295); Potassium 3.5 mMol/L (3.4-5.1); Sodium 135 mMol/L (136-145); Total Protein 5.0 gm/dL (5.7-8.2); eGFR > 60 See Note
--- NOTE | 2024-12-10 09:30 | PD.RESPRO ---
Documentation for date of: 12/10/24 Subjective Subjective Interval history: History of present illness: Mr. Akhtar is a 69 year old male with past medical history of hypertension, hyperlipidemia, CAD s/p 2 stents, and recent intracranial hemorrhage on 10/01/2024 (treated in [place]) who was admitted for right buttock cellulitis pending I&D 12/10. Patient reports that he was prescribed corticosteroids post intracranial hemorrhage. Neurology consulted for assessment of further management of steroid dosing in the setting of recent intracranial hemorrhage. Primary team requested records from [facility], pending records. Patient has residual left-sided upper and lower extremity weakness, no new or worsening symptoms of ICH reported today. Interval history: Patient more engaged today, reports feeling much better after I&D this morning. He reports that he wants to try PT with the goal of walking. Exam Vital Signs Temp Pulse Resp BP Pulse Ox O2 Del Method O2 Flow Rate 97.9 F 93 25 H 105/76 93 L Nasal Cannula 5 12/10/24 04:00 12/10/24 04:02 12/10/24 04:02 12/10/24 04:00 12/10/24 04:02 12/10/24 04:00 12/10/24 04:02 Narrative Exam General: No acute distress, well nourished HENT: Normocephalic, normal hearing, moist oral mucosa Lungs: Non-labored respirations, symmetric chest rise Heart: Peripheral pulses intact bilaterally, capillary refill brisk distally Abdomen: Non-distended, normal bowel sounds, no masses Musculoskeletal: Normal range of motion Psychiatric: Cooperative, appropriate mood and affect Neurological: Mental status: Orientation: Oriented to person, place, time, and situation Communication: Patient is cooperative and can follow simple instructions Language: Speech fluent, normal rate and volume, comprehension intact Cranial nerves: CN II: Visual reynolds intact CN III: Pupils equal, round, and reactive to light CN III, IV, : No gaze deviation, no nystagmus Horizontal pursuit: intact Vertical pursuit: intact Ptosis: none CN V: Facial sensation to light touch intact bilaterally at the forehead, cheeks, and jaw line CN VII: Face symmetric, no facial droop appreciated CN VIII: Able to hear and respond to conversation at normal volume CN IX, X: Palate elevation symmetric, uvula midline CN XI: Head turn and shoulder shrug strong, symmetric bilaterally CN XII: Normal tongue protrusion without deviation, no fasciculations Motor: Normal bulk and tone No abnormal movements or fasciculations Muscle strength: Shoulder abduction: R 5/5 L 4/5 Elbow flexion: R 5/5 L 4/5 Elbow extension: R 5/5 L 4/5 Hip flexion: R 5/5 L 3/5 Hip extension: R 5/5 L 3/5 Sensory: RUE: Light touch intact LUE: Light touch intact RLE: Light touch intact LLE: Light touch intact Reflexes: Biceps (C5-6): R 2+ L 2+ Brachioradialis (C5-6): R 2+ L 2+ Triceps (C7-8): R 2+ L 2+ Patellae (L3-4): R 2+ L 2+ Achilles (S1-2):R 2+ L 2+ Plantar reflex downgoing bilaterally Cerebellum: RUE: No dysmetria (finger to nose), no dysdiadochokinesia (rapid alternating movements) LUE: No dysmetria (finger to nose), no dysdiadochokinesia (rapid alternating movements) RLE: Unable to assess LLE: Unable to assess Romberg: deferred Gait: deferred Objective Labs 12/11/24 04:55 12/11/24 04:55 Labs: Laboratory Results - last 24 hr 12/09/24 12/09/24 12/09/24 05:21 07:38 09:04 WBC RBC Hgb Hct MCV MCH MCHC RDW Std Deviation Plt Count Neut % (Auto) Lymph % (Auto) Duval % (Auto) Eos % (Auto) Baso % (Auto) Neut # (Auto) Lymph # (Auto) Duval # (Auto) Eos # (Auto) Baso # (Auto) Immature Gran # (Auto) Absolute Nucleated RBC Immature Gran % Nucleated RBC % ESR 25 H PT 11.9 INR 1.1 APTT 30.8 Puncture Site ABG pH ABG pCO2 ABG pO2 ABG HCO3 ABG O2 Saturation ABG Base Excess Oxygen Liter Flow FiO2 Sodium Potassium Chloride Carbon Dioxide Anion Gap BUN Creatinine Estim Creat Clear Calc eGFR BUN/Creatinine Ratio Glucose Calculated Osmolality Calcium Corrected Calcium Magnesium Total Bilirubin AST ALT Alkaline Phosphatase C-Reactive Prot, Quant 19.9 H Total Protein Albumin Globulin Albumin/Globulin Ratio Vancomycin Trough 11.0 H HIV 1&2 Antibody Rapid Non-Reactive 12/09/24 12/10/24 11:24 05:27 WBC 13.5 H RBC 3.96 L Hgb 12.1 L D Hct 34.4 L MCV 87 MCH 30.6 MCHC 35.2 RDW Std Deviation 47.0 H Plt Count 119 L Neut % (Auto) 85 H Lymph % (Auto) 10 Duval % (Auto) 3 Eos % (Auto) 0 Baso % (Auto) 0 Neut # (Auto) 11.4 H Lymph # (Auto) 1.3 Duval # (Auto) 0.4 Eos # (Auto) 0.0 Baso # (Auto) 0.0 Immature Gran # (Auto) 0.34 H Absolute Nucleated RBC 0.00 Immature Gran % 3 H Nucleated RBC % 0 ESR PT INR APTT Puncture Site Left Radial ABG pH 7.44 ABG pCO2 29 L ABG pO2 108 ABG HCO3 20 ABG O2 Saturation 99 H ABG Base Excess -3 Oxygen Liter Flow 6 FiO2 21 Sodium 135 L Potassium 3.5 Chloride 106 Carbon Dioxide 21.8 Anion Gap 7 BUN 12 Creatinine 0.5 L Estim Creat Clear Calc 144.0 eGFR > 60 BUN/Creatinine Ratio 24 H Glucose 120 H Calculated Osmolality 270 L Calcium 8.1 L Corrected Calcium 9.1 Magnesium 2.2 Total Bilirubin 0.5 D AST 22 ALT 31 Alkaline Phosphatase 68 C-Reactive Prot, Quant Total Protein 5.0 L Albumin 2.8 L Globulin 2.2 L Albumin/Globulin Ratio 1.3 Vancomycin Trough HIV 1&2 Antibody Rapid ABG Interpretation ABG results: 12/09/24 11:24 ABG pH 7.44 ABG pCO2 29 L ABG pO2 108 ABG HCO3 20 ABG O2 Saturation 99 H ABG Base Excess -3 Quality Measures Quality Measures sepsis (White count 20.6, lactic 2.3, CRP 3.5, procalcitonin 0.07.) Current suspected stage: ruled out Possible source: skin/soft tissue Blood cultures ordered: yes Antibiotic ordered: Yes Advance care planning discussed with:: patient Assessment & Plan Assessment Current Active Medications: Generic Name Dose Route Start Last Admin Trade Name Freq PRN Reason Stop Dose Admin Acetaminophen 650 mg 12/08/24 00:24 Acetaminophen 325 Mg Tablet PO 01/07/25 00:23 Q6H PRN Fever >100.4 Acetaminophen 650 mg 12/08/24 00:24 12/08/24 18:19 Acetaminophen 325 Mg Tablet PO 01/07/25 00:23 650 mg Q6H PRN Administration PAIN SCALE 1-3 (mild Hydrocodone Bitart/Acetaminophen 1 tab 12/08/24 00:24 Hydrocodone/Apap 5/325 Tablet PO 12/13/24 00:23 Q4HR PRN PAIN SCALE 4-6 (Moderate Atorvastatin Calcium 80 mg 12/10/24 21:00 Atorvastatin Calcium 20 Mg Tablet PO 01/09/25 20:59 HS [facility]EL Emtricitabine/Tenofovir 1 tab 12/09/24 09:00 12/09/24 09:33 Emtricitabine 200 Mg/Tenofovir 300 Mg Tab (Non-Form) PO 12/16/24 08:59 1 tab QDAY [facility] Administration Hydrocortisone Sodium Succinate 100 mg 12/09/24 09:00 12/10/24 05:15 Hydrocortisone Sod Succ Inj 100 Mg Vial IV 01/08/25 08:59 100 mg Q6HR [facility] Administration Piperacillin/Tazobactam/Dextrose 3.375 gm in 50 mls @ 100 mls/hr 12/08/24 00:32 12/10/24 05:15 Zosyn IV 12/15/24 00:31 100 mls/hr Q8HR [facility] Administration Vancomycin HCl 250 mls @ 120 mls/hr 12/08/24 10:00 12/10/24 01:03 Vancomycin/Water 1250 Mg Ivpb IV 12/15/24 09:59 Infused Q12H [facility] Infusion Protocol Ondansetron HCl 4 mg 12/08/24 00:24 Ondansetron Inj 2 Mg/Ml Inj 2 Ml IVP 01/07/25 00:23 Q6H PRN NAUSEA OR VOMITING Protocol Pharmacy Consult 1 each 12/08/24 09:00 Vancomycin Pharmacy To Dose 1 Each Each IV 01/07/25 08:59 QDAY PRN RX Plan #Hx of intracranial hemorrhage #Hx of hypertension Home meds: Atenolol 25 mg q daily and atorvastatin 40 mg q daily Patient has residual left-sided weakness, 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 No acute change in symptoms. Imaging demonstrated no acute intracranial hemorrhage. Given that patient's ICH not due to tumor, no need to continue steroids. Primary team requested records from [facility], pending reports. On medication review from rehab facility, patient missed his dose of dexamethasone 4 mg twice daily for last 2 days which was started by neurosurgeon at [facility] in September 2024. Given stress dose hydrocortisone 100 mg q6h for concern of adrenal suppression by primary team. HIV Ab non-reactive CT head w/o 12/09: Large area of encephalomalacia in the right frontal lobe again noted with mass effect unchanged upon the right lateral ventricle. No interval acute hemorrhage MRI brain 12/09: Large area of restricted diffusion with signal deficit consistent with infarct in the right frontal lobe with subacute hemorrhage. Postcontrast images demonstrate enhancement of this mass Plan: - Steroid taper to be completed over 6 days -- Will slowly wean him off of Decadron: 4 mg daily x3 days and 2 mg daily for 2 days and then stop. Will review the medical records from [facility] - Support for left foot when appropriate given patient's mobility - BP managed per primary team #New Onset A-fib RVR Plan: Managed per primary team Given recent ICH, anticoagulants contraindicated #Right buttock cellulitis Plan: Managed by primary team Plan discussed with Dr. Puga. [place] Gordon, PGY1 Attending Provider Attestation/Addendum I personally have seen and examined the patient at the bedside and agree with resident's findings, assessment and plan of care. Patient's left-sided weakness in addition to the left foot drop is slightly improving. Encouraged him to participate with physical therapy as he had I and D done today for his gluteal abscess. Will follow-up with the medical records from [place] as it becomes available. Continue with the weaning dose of steroids as advised.
[2024-12-10] MEDS: VANCOMYCIN/WATER 1250 MG IVPB 250 ML 120 MG IV ×2 (09:31→22:10)
--- NOTE | 2024-12-10 10:39 | PD.SURPROG ---
Documentation for date of: 12/10/24 Subjective Subjective Brief History: 69M with HTN, HLD, CAD s/p stenting, CVA 09/2024 who presented with pain at the gluteus. Pt denies any pain at the moment and is unsure if he has had any drainage. Workup shows WBC 20 which downtrended to 17, and CT showed perianal inflammation extending to the gluteal fold with cellulitis primarily in the right buttock region but no fluid filled drainable abscess PMH: HTN, HLD, CAD, CVA with left sided weakness PSHx: Cardiac stenting, appendectomy Meds: includes ASA Allergies: NKDA Narrative: Yesterday I&D was deferred due to hypotension related to missing doses of steroids as well as concern for another CVA; today pt is improved clinically and has been determined to have acceptable risk for surgery. He reports more pain to the R gluteal area Exam Vital Signs Temp Pulse Resp BP Pulse Ox O2 Del Method O2 Flow Rate 97.0 F 84 19 124/85 H 94 L Nasal Cannula 5 12/10/24 08:00 12/10/24 08:00 12/10/24 08:00 12/10/24 08:00 12/10/24 08:00 12/10/24 08:00 12/10/24 08:00 Constitutional Constitutional: no acute distress Routine Respiratory Exam Respiratory: Present no resp distress Results Results: Laboratory Laboratory results: results reviewed Assessment & Plan Plan 69M with HTN, HLD, CAD s/p stenting, CVA 09/2024 who presented with pain at the gluteus, with findings of cellulitis and induration. CT is reviewed and while there is no drainable fluid collection, I recommend incision and drainage for decompression as well as possible excisional debridement in case any necrotic tissue is encountered. I also explained that the wound will need to remain open for healing by secondary intention and will likely take weeks to fully heal. All questions were answered and pt is agreeable to proceeding
--- NOTE | 2024-12-10 11:37 | SUR.PHASEI ---
pt received from OR in recovery bay 4. pt asleep but responds to voice, breathing unlabored on oxymask 8l. v/s stable. pt dressing gluteal area cdi. report received from Ailyn LUNSFORD and Dr. Andino.
--- NOTE | 2024-12-10 11:44 | PD.SUROPNT ---
Date of Procedure 12/10/24 Pre Op Diagnosis Right gluteal abscess Post Op Diagnosis Same Procedure Incision and drainage, excisional debridement Findings Right gluteal abscess containing minimal pus, necrotic skin and subcutaneous tissue Procedure Description After discussion of risk and benefits, patient was brought to the operating room, SCDs were activated and general anesthesia was induced. He was placed in left lateral decubitus positioning with proper padding and was prepped and draped in the usual sterile fashion. He was receiving IV antibiotics. After timeout the ulcerated, indurated area of the superior right gluteus was incised with a #15 blade. There was return of approximately 2 cc of pus and a small amount of blood. The wound was probed for loculations and noted to tunnel superiorly, laterally and inferiorly. There was some necrotic skin and subcutaneous tissue which was sharply excised with a #15 blade. The wound was irrigated with Betadine, hydroperoxide and saline and hemostasis was achieved with electrocautery. The wound was packed with a moistened Kerlix and covered with fluffs and an abdominal pad which was secured with Medipore tape. Patient was returned to supine position and extubated without complication. He was brought to PACU in stable condition Pathology / specimen Other (Right gluteal wound with necrotic tissue) Estimated Blood Loss 10 Surgeon Zainab Bardales MD Surgical Staff Operation Date: 12/10/24 10:15 <No data on this case meets the specified criteria>
--- NOTE | 2024-12-10 12:01 | PC.SS ---
SS follow up note; IND today by Dr. Bardales. Stroke workup. Patient will discharge back to [facility] when medically cleared.
--- NOTE | 2024-12-10 12:37 | SUR.PHASEI ---
pt awake and alert, breathing unlabored on nc 4l. v/s stable. pt dressing to gluteal area cdi. report called to [facility]. pt will be transferred to room at this time.
[2024-12-10] MEDS: EMTRICITABINE 200 MG/TENOFOVIR 300 MG TAB (NON-FORM) 1 TAB PO (12:56)
--- NOTE | 2024-12-10 16:10 | ESPR_ITS ---
<Statement entered by Suad Hunt MD - 12/12/24 18:41> I personally examined the patient evaluated the patient with resident physician Dr. Michael Wang agree with the treatment plan recommendation patient stable no further arrhythmias. Documentation for date of: 12/10/24 Subjective Subjective Interval history: Patient is seen and examined at bedside No acute overnight events. Patient underwent gluteal abscess drainage this morning and the procedure underwent uneventful Complaining of mild discomfort at the site of drainage. Patient is already started on diet and tolerating well No further episodes of tachycardia/tachyarrhythmias noted on telemetry Vitals are stable. On physical examination, S1-S2 heard and no murmurs with regular rhythm and rate Recommended to continue telemetry monitoring. Labs showed potassium of 3.5. 40 mEq of oral potassium is given. Keep potassium greater than 4 and magnesium greater than 2 Exam Vital Signs Temp Pulse Resp BP Pulse Ox O2 Del Method O2 Flow Rate 97 F 88 20 115/87 H 94 L Nasal Cannula 4 12/10/24 12:30 12/10/24 12:30 12/10/24 12:30 12/10/24 12:30 12/10/24 12:30 12/10/24 08:00 12/10/24 12:30 Narrative Exam General: Awake. HEENT: Normocephalic, atraumatic, mucous membranes moist. Heart: Regular rhythm, no murmurs. Sinus tachycardia Lungs: Clear to auscultation with no wheezing or crackles. Abdomen: Soft, nondistended, nontender, positive bowel sounds. ?No guarding or rebound tenderness. Neurologic: Alert and oriented x3, weakness noted in the left half of the body from residual stroke 2/5 in the lower extremities Extremities: Noted edema on Left lower extremity Skin: noted gluteal cellulitis on the picture from chart review Objective Labs 12/10/24 05:27 12/10/24 05:27 Labs: Laboratory Results - last 24 hr 12/10/24 05:27 WBC 13.5 H RBC 3.96 L Hgb 12.1 L D Hct 34.4 L MCV 87 MCH 30.6 MCHC 35.2 RDW Std Deviation 47.0 H Plt Count 119 L Neut % (Auto) 85 H Lymph % (Auto) 10 [place] % (Auto) 3 Eos % (Auto) 0 Baso % (Auto) 0 Neut # (Auto) 11.4 H Lymph # (Auto) 1.3 [place] # (Auto) 0.4 Eos # (Auto) 0.0 Baso # (Auto) 0.0 Immature Gran # (Auto) 0.34 H Absolute Nucleated RBC 0.00 Immature Gran % 3 H Nucleated RBC % 0 Sodium 135 L Potassium 3.5 Chloride 106 Carbon Dioxide 21.8 Anion Gap 7 BUN 12 Creatinine 0.5 L Estim Creat Clear Calc 144.0 eGFR > 60 BUN/Creatinine Ratio 24 H Glucose 120 H Calculated Osmolality 270 L Calcium 8.1 L Corrected Calcium 9.1 Magnesium 2.2 Total Bilirubin 0.5 D AST 22 ALT 31 Alkaline Phosphatase 68 Total Protein 5.0 L Albumin 2.8 L Globulin 2.2 L Albumin/Globulin Ratio 1.3 ABG Interpretation ABG results: 12/09/24 11:24 ABG pH 7.44 ABG pCO2 29 L ABG pO2 108 ABG HCO3 20 ABG O2 Saturation 99 H ABG Base Excess -3 Quality Measures Quality Measures sepsis (White count 20.6, lactic 2.3, CRP 3.5, procalcitonin 0.07.) Current suspected stage: ruled out Possible source: skin/soft tissue Blood cultures ordered: yes Antibiotic ordered: Yes Advance care planning discussed with:: patient Assessment & Plan Assessment Current Active Medications: Generic Name Dose Route Start Last Admin Trade Name Freq PRN Reason Stop Dose Admin Acetaminophen 650 mg 12/08/24 00:24 Acetaminophen 325 Mg Tablet PO 01/07/25 00:23 Q6H PRN Fever >100.4 Acetaminophen 650 mg 12/08/24 00:24 12/08/24 18:19 Acetaminophen 325 Mg Tablet PO 01/07/25 00:23 650 mg Q6H PRN Administration PAIN SCALE 1-3 (mild Hydrocodone Bitart/Acetaminophen 1 tab 12/08/24 00:24 Hydrocodone/Apap 5/325 Tablet PO 12/13/24 00:23 Q4HR PRN PAIN SCALE 4-6 (Moderate Atorvastatin Calcium 80 mg 12/10/24 21:00 Atorvastatin Calcium 20 Mg Tablet PO 01/09/25 20:59 HS IZABEL Emtricitabine/Tenofovir 1 tab 12/09/24 09:00 12/10/24 12:56 Emtricitabine 200 Mg/Tenofovir 300 Mg Tab (Non-Form) PO 12/16/24 08:59 1 tab QDAY IZABEL Administration Hydrocortisone Sodium Succinate 100 mg 12/09/24 09:00 12/10/24 12:55 Hydrocortisone Sod Succ Inj 100 Mg Vial IV 01/08/25 08:59 100 mg Q6HR IZABEL Administration Piperacillin/Tazobactam/Dextrose 3.375 gm in 50 mls @ 100 mls/hr 12/08/24 00:32 12/10/24 13:13 Zosyn IV 12/15/24 00:31 100 mls/hr Q8HR IZABEL Administration Vancomycin HCl 250 mls @ 120 mls/hr 12/08/24 10:00 12/10/24 09:31 Vancomycin/Water 1250 Mg Ivpb IV 12/15/24 09:59 120 mls/hr Q12H IZABEL Administration Protocol Ondansetron HCl 4 mg 12/08/24 00:24 Ondansetron Inj 2 Mg/Ml Inj 2 Ml IVP 01/07/25 00:23 Q6H PRN NAUSEA OR VOMITING Protocol Pharmacy Consult 1 each 12/08/24 09:00 Vancomycin Pharmacy To Dose 1 Each Each IV 01/07/25 08:59 QDAY PRN RX Plan A 69-year-old male with significant past medical history of hypertension, hyperlipidemia, CAD status post 2 stents in 2003, recent ICH in 09/2024 currently residing in nursing facility was brought to the hospital with chief complaints of worsening of his ulcer and swelling on his buttocks since 1 week and cardiology is consulted for paroxysmal atrial fibrillation # Paroxysmal atrial fibrillation ---> reverted to normal sinus rhythm - Patient is admitted to the hospital for gluteal cellulitis and abscess - Patient was supposed to go to surgery on 12/09/2024, but developed tachycardia with heart rate around 150 and mild altered sensorium before going to the surgery - Telemetry strips showed atrial fibrillation with rapid ventricular rate - Patient received 3.5 L of fluid in total, 1 diltiazem IV push and 1 dose of digoxin 0.25 mg - Patient reverted to normal sinus rhythm after fluid resuscitation and medications - Cardiology is consulted as patient had previous history of CAD and tachyarrhythmia - [id number] is 5, has bled score is 4 Plan - Recommended to continue telemetry monitoring - Recommended to give adequate hydration to the patient - [id number] is high, no need of anticoagulation as of now as the paroxysmal A-fib seems to be occurring in the setting of ongoing abscess. - Echocardiogram - Keep magnesium greater than 2 and potassium greater than 4 # History of CAD s/p stenting - Patient had extensive family history of CAD in his family - Patient underwent 2 stents placement in 2003 Plan - Recommend to continue aspirin and statin # History of hypertension - Patient's blood pressure is within normal limits during the hospital stay without any medications Plan - Recommended to continue to monitor blood pressures and start medications as needed #Acute encephalopathy likely multifactorial, resolved #Right buttock cellulitis #Leukocytosis #Lactic acidosis, resolved #Hx of ICH Management of the rest of the medical conditions to be treated by primary team Patient plan of care was discussed with Waxing Machine Operator Dr. Gilbert Wang, PGY2
--- NOTE | 2024-12-10 17:11 | ESPR_ITS ---
<Statement entered by Omega Baer MD - 12/13/24 15:00> I have discussed and was present for the essential components of the history, physical examination, diagnosis, and treatment plan with the resident. I agree with the patient's care as documented by the resident and amended herein by me. Omega Baer MD FACP. <Statement entered by Mckay Espinosa MD - 12/10/24 17:40> I discussed and supervised with the internal control consultant physician who took care of this patient. I personally saw and examined the patient. I agree with most of the assessment and plan. Disclaimer: Despite multiple revisions, due to the dictation software being used, the document bellow may not be free of grammatical errors including phonetic/typographic errors. However, this does not deter from our commitment to providing health care in the patient's best interest in mind. Plan of care discussed with attending Physician Dr. Keyur Espinosa MD PGY-3 Documentation for date of: 12/10/24 Subjective Subjective Interval history: No acute events overnight. Patient states he is doing well. He denies and fever, chest pain, dizziness, shortness of breath, abdominal pain. Exam Vital Signs Temp Pulse Resp BP Pulse Ox O2 Del Method O2 Flow Rate 97 F 88 20 115/87 H 94 L Nasal Cannula 4 12/10/24 12:30 12/10/24 12:30 12/10/24 12:30 12/10/24 12:30 12/10/24 12:30 12/10/24 08:00 12/10/24 12:30 Narrative Exam General: A/O x3, no acute distress Lungs: Clear SHIVA to auscultation and percussion, No accessory muscle use. Cardio: Normal S1/S2, regular rhythm, no murmurs, no JVD Abdomen: Soft, non-tender, no palpable masses, no guarding or rebound. Extremities: Symmetrical, no significant deformities, no peripheral edema , non-tender, peripheral pulses presents. Skin: No rashes, no lesions, warm to touch, 10x12 cm indurated mass nonfluctuating at the R side of the intergluteal cleft. Neuro: L sided weakness compared to the R side, No facial asymmetry, No sensory deficits, able to follow commands and move all extremities Psych: Slow response Objective Labs 12/10/24 05:27 12/10/24 05:27 Labs: Laboratory Results - last 24 hr 12/10/24 05:27 WBC 13.5 H RBC 3.96 L Hgb 12.1 L D Hct 34.4 L MCV 87 MCH 30.6 MCHC 35.2 RDW Std Deviation 47.0 H Plt Count 119 L Neut % (Auto) 85 H Lymph % (Auto) 10 [place] % (Auto) 3 Eos % (Auto) 0 Baso % (Auto) 0 Neut # (Auto) 11.4 H Lymph # (Auto) 1.3 [place] # (Auto) 0.4 Eos # (Auto) 0.0 Baso # (Auto) 0.0 Immature Gran # (Auto) 0.34 H Absolute Nucleated RBC 0.00 Immature Gran % 3 H Nucleated RBC % 0 Sodium 135 L Potassium 3.5 Chloride 106 Carbon Dioxide 21.8 Anion Gap 7 BUN 12 Creatinine 0.5 L Estim Creat Clear Calc 144.0 eGFR > 60 BUN/Creatinine Ratio 24 H Glucose 120 H Calculated Osmolality 270 L Calcium 8.1 L Corrected Calcium 9.1 Magnesium 2.2 Total Bilirubin 0.5 D AST 22 ALT 31 Alkaline Phosphatase 68 Total Protein 5.0 L Albumin 2.8 L Globulin 2.2 L Albumin/Globulin Ratio 1.3 ABG Interpretation ABG results: 12/09/24 11:24 ABG pH 7.44 ABG pCO2 29 L ABG pO2 108 ABG HCO3 20 ABG O2 Saturation 99 H ABG Base Excess -3 Quality Measures Quality Measures sepsis (White count 20.6, lactic 2.3, CRP 3.5, procalcitonin 0.07.) Current suspected stage: ruled out Possible source: skin/soft tissue Blood cultures ordered: yes Antibiotic ordered: Yes Advance care planning discussed with:: patient and sibling Assessment & Plan Assessment Current Active Medications: Generic Name Dose Route Start Last Admin Trade Name Freq PRN Reason Stop Dose Admin Acetaminophen 650 mg 12/08/24 00:24 Acetaminophen 325 Mg Tablet PO 01/07/25 00:23 Q6H PRN Fever >100.4 Acetaminophen 650 mg 12/08/24 00:24 12/08/24 18:19 Acetaminophen 325 Mg Tablet PO 01/07/25 00:23 650 mg Q6H PRN Administration PAIN SCALE 1-3 (mild Hydrocodone Bitart/Acetaminophen 1 tab 12/08/24 00:24 Hydrocodone/Apap 5/325 Tablet PO 12/13/24 00:23 Q4HR PRN PAIN SCALE 4-6 (Moderate Atorvastatin Calcium 80 mg 12/10/24 21:00 Atorvastatin Calcium 20 Mg Tablet PO 01/09/25 20:59 HS IZABEL Dexamethasone 8 mg 12/11/24 09:00 Dexamethasone 4 Mg Tablet PO 12/14/24 08:59 QDAY IZABEL Dexamethasone 4 mg 12/14/24 09:00 Dexamethasone 4 Mg Tablet PO 12/17/24 08:59 QDAY IZABEL Dexamethasone 2 mg 12/18/24 09:00 Dexamethasone 4 Mg Tablet PO 12/20/24 08:59 QDAY IZABEL Emtricitabine/Tenofovir 1 tab 12/09/24 09:00 12/10/24 12:56 Emtricitabine 200 Mg/Tenofovir 300 Mg Tab (Non-Form) PO 12/16/24 08:59 1 tab QDAY IZABEL Administration Hydrocortisone Sodium Succinate 100 mg 12/09/24 09:00 12/10/24 12:55 Hydrocortisone Sod Succ Inj 100 Mg Vial IV 01/08/25 08:59 100 mg Q6HR IZABEL Administration Piperacillin/Tazobactam/Dextrose 3.375 gm in 50 mls @ 100 mls/hr 12/08/24 00:32 12/10/24 13:13 Zosyn IV 12/15/24 00:31 100 mls/hr Q8HR IZABEL Administration Vancomycin HCl 250 mls @ 120 mls/hr 12/08/24 10:00 12/10/24 09:31 Vancomycin/Water 1250 Mg Ivpb IV 12/15/24 09:59 120 mls/hr Q12H IZABEL Administration Protocol Ondansetron HCl 4 mg 12/08/24 00:24 Ondansetron Inj 2 Mg/Ml Inj 2 Ml IVP 01/07/25 00:23 Q6H PRN NAUSEA OR VOMITING Protocol Pharmacy Consult 1 each 12/08/24 09:00 Vancomycin Pharmacy To Dose 1 Each Each IV 01/07/25 08:59 QDAY PRN RX Plan Plan 69-year-old male with past medical history of hypertension, hyperlipidemia, CAD s/p 2 stents, and recent intracranial hemorrhage on 10/01/2024, admitted for management of right buttock cellulitis. #Right buttock cellulitis, s/p I&D #Leukocytosis #Lactic acidosis, resolved Patient came in with initial complaints of pain in the right buttocks Abdomen/pelvis CT showed perianal inflammation which extends to the inter gluteal fold with cellulitis primarily the right buttock region, no fluid-filled drainable abscess. In the ED patient received vancomycin and Zosyn x 1 Negative acid was 2.3 and downtrended to 1.3 WBCs downtrended to 17.3 from 20.6. Patient did not have any fevers, tachycardia, or any signs of systemic inflammatory response other than WBC elevation. Surgery was consulted and recommended IV Abx Blood cultures repeated with 0/2 Growth (12/09) Plan: Continue Vanco and Zosyn; likely discontinue when blood cultures have been negative for 48 hours. Continue to monitor blood cultures. 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 Postcontrast images demonstrate enhancement of this mass, differential would include luxury enhancement in a right frontal infarct versus enhancement in a right frontal tumor Plan Neuro suspected it to be old infarct/bleed, did not recommend transfer Will Start 15 mg Decadron for tomorrow (for a total of 3 days 15 mg decadron equivalent), then 8 mg Decadron starting 12/11/2024 for 3 days, followed by 4 mg daily x3 days and 2 mg daily for 2 days and then stop. Neuro checks q4 hr Aspiration precautions Monitor for any new worsening neurological symptoms SCD's for DVT prophylaxis #Hypotension, resolved #New Onset A-fib RVR, currently rate controlled #Acute encephalopathy likely multifactorial, resolved Refer to previous note and/or 12-09-2024 event note for complete write up regarding rapid response [place] [facility] [place] to be on hydrocortisone 100 mg q6 hr. Neurology recommended Steroid taper to be completed over 6 days: 4 mg daily x3 days and 2 mg daily for 2 days and then stop. Total daily dosage of hydrocortisone converted to Decadron equals 15 mg q daily, which 12/10/2024 will be his 2nd day 15 mg q day equivalent Plan: - Will Start 15 mg Decadron for tomorrow (for a total of 3 days 15 mg decadron equivalent), then 8 mg Decadron starting 12/11/2024 for 3 days, followed by 4 mg daily x3 days and 2 mg daily for 2 days and then stop. #Leukocytosis, improving Likely related to infection. WBC count trending down. Continue to trend. Normocytic Anemia Chronic Thrombocytopenia Anemia Likely due to dilutional due to IV fluids No signs of overt bleeding. PRBC if hgb drops below 7. Elevated troponin-I Likely due to demand ischemia No signs of chest pain No acute st changes on ecg Chronic disease: #Hx of hypertension #Hx of CAD s/p stents #Hx of ICH Blood pressure has been stable since came into the ED. Patient's home medication includes atenolol 25 mg q daily and atorvastatin 40 mg q daily. Blood pressure has been well controlled, will add anti-hypertensives as necessary. Disposition: Patient admitted to med surg for R buttock cellulitis, pending wound vac if necessary, will be evaulated Saturday12/14/2024 Diet: Cardiac GI prophylaxis: not indicated DVT prophylaxis: SCDs due to recent ICH Code: Full Plan Discussed with Dr. Keyur Bautista MD PGY-1 Internal Medicine
[2024-12-10] MEDS: ATORVASTATIN CALCIUM 20 MG TABLET 80 MG PO (21:34)
[2024-12-11] VITALS (8 sets, daily range): BP systolic 114–143; BP diastolic 71–88; PULSE 58–97; RESP 16–26; TEMP 36.1–36.6; O2SAT 91–99
[2024-12-11] MEDS: PIPER/TAZO 3.375 GM PREMIX 3.375 GM/50 ML BAG IV ×3 (05:43→21:28)
[2024-12-11 06:32] LABS: Basophils # (Auto) 0.0 Thou/mm3 (0.0-0.2); Basophils % (Auto) 0 % (0-2.5); Eosinophils # (Auto) 0.0 Thou/mm3 (0.0-0.5); Eosinophils % (Auto) 0 % (0-10); Hematocrit 32.0 % (41.0-53.0); Hemoglobin 11.5 g/dL (13.5-16.0); Immature Granulocytes Auto 0.30 Thou/mm3 (0.00-0.00); Lymphocytes # (Auto) 1.6 Thou/mm3 (1.0-4.8); Lymphocytes % (Auto) 12 % (10-50); Mean Corpuscular HGB Conc 35.9 g/dl (31.0-37.0); Mean Corpuscular Hemoglobin 30.9 pg (25.0-35.0); Mean Corpuscular Volume 86 fL (80-100); Monocytes # (Auto) 0.4 Thou/mm3 (0.0-0.8); Monocytes % (Auto) 3 % (0-12); Neutrophils # (Auto) 11.4 Thou/mm3 (1.8-7.7); Neutrophils % (Auto) 83 % (37-80); Nucleated Red Blood Cell # 0.00 Thou/mm3 (0.00-0.00); Nucleated Red Blood Cell % 0 /100 WBC (0); Platelet Count 126 Thou/mm3 (140-440); RDW Standard Deviation 46.0 fL (35.1-43.9); Red Blood Count 3.72 Miln/mm3 (4.50-5.90); White Blood Count 13.7 Thou/mm3 (3.8-10.6)
[2024-12-11 07:18] LABS: Alanine Aminotransferase 27 U/L (10-49); Albumin, Serum 2.9 gm/dL (3.4-4.8); Albumin/Globulin Ratio 1.3 (1.2-2.2); Alkaline Phosphatase 68 U/L (46-116); Anion Gap 10 (7-16); Aspartate Amino Transferase 20 U/L (0-34); BUN/Creatinine Ratio 28 Ratio (12-20); Bilirubin,Total 0.5 mg/dL (0.3-1.2); Blood Urea Nitrogen 14 mg/dL (9-23); Calcium 8.3 mg/dL (8.3-10.6); Calcium (Corrected) 9.2 mg/dL (8.5-10.1); Carbon Dioxide 22.0 mMol/L (20.0-31.0); Chloride 105 mMol/L (98-107); Creatinine (Component) 0.5 mg/dL (0.6-1.3); Estimated Creatinine Clearance 144.0 mL/min (>60); Globulin 2.2 gm/dL (2.3-3.5); Glucose 106 mg/dL (74-106); Magnesium 2.0 mg/dL (1.6-2.6); Osmolality,Calculated 274 (275-295); Phosphorous 2.0 mg/dL (2.4-5.1); Potassium 4.1 mMol/L (3.4-5.1); Sodium 137 mMol/L (136-145); Total Protein 5.1 gm/dL (5.7-8.2); eGFR > 60 See Note
[2024-12-11] MEDS: EMTRICITABINE 200 MG/TENOFOVIR 300 MG TAB (NON-FORM) 1 TAB PO (09:16)
[2024-12-11] MEDS: DEXAMETHASONE 15 MG PO (09:17)
[2024-12-11] MEDS: NAPH,KPH MBDB 1 PACKET (1.5 GM) 2 PACKET PO (09:18)
--- NOTE | 2024-12-11 11:32 | PC.SS ---
Rounding: Dr. Bardales following, may need wound vac, will be re-evaluated on Thursday 12/14. [facility]
--- NOTE | 2024-12-11 18:56 | ESPR_ITS ---
<Statement entered by Suad Hunt MD - 12/12/24 18:53> I personally examined evaluated the patient with PGY 2 Dr. Wang agree with treatment plan recommendation as documented will monitor the patient if patient has further issues Documentation for date of: 12/11/24 Subjective Subjective Interval history: Patient is seen and examined at bedside No acute overnight events. Patient did not have any further episodes of atrial fibrillation Denies any new complaints Resumed atenolol 25 mg which is his home medication The episodes of atrial fibrillation could be due to underlying pain and ongoing abscess, and as the abscess was drained now, patient did not have any further episodes of atrial fibrillation Cardiology will sign off for now and if needed recommended to reconsult Exam Vital Signs Temp Pulse Resp BP Pulse Ox O2 Del Method O2 Flow Rate 97.0 F 66 24 H 118/71 93 L Nasal Cannula 2 12/11/24 16:00 12/11/24 16:00 12/11/24 16:00 12/11/24 16:00 12/11/24 16:00 12/11/24 16:00 12/11/24 16:00 Narrative Exam General: Awake. HEENT: Normocephalic, atraumatic, mucous membranes moist. Heart: Regular rhythm, no murmurs. Sinus tachycardia Lungs: Clear to auscultation with no wheezing or crackles. Abdomen: Soft, nondistended, nontender, positive bowel sounds. ?No guarding or rebound tenderness. Neurologic: Alert and oriented x3, weakness noted in the left half of the body from residual stroke 2/5 in the lower extremities Extremities: Noted edema on Left lower extremity Skin: noted gluteal cellulitis on the picture from chart review Objective Labs 12/11/24 04:55 12/11/24 04:55 Labs: Laboratory Results - last 24 hr 12/11/24 04:55 WBC 13.7 H RBC 3.72 L Hgb 11.5 L Hct 32.0 L MCV 86 MCH 30.9 MCHC 35.9 RDW Std Deviation 46.0 H Plt Count 126 L Neut % (Auto) 83 H Lymph % (Auto) 12 [place] % (Auto) 3 Eos % (Auto) 0 Baso % (Auto) 0 Neut # (Auto) 11.4 H Lymph # (Auto) 1.6 [place] # (Auto) 0.4 Eos # (Auto) 0.0 Baso # (Auto) 0.0 Immature Gran # (Auto) 0.30 H Absolute Nucleated RBC 0.00 Immature Gran % 2 H Nucleated RBC % 0 Sodium 137 Potassium 4.1 D Chloride 105 Carbon Dioxide 22.0 Anion Gap 10 BUN 14 Creatinine 0.5 L Estim Creat Clear Calc 144.0 eGFR > 60 BUN/Creatinine Ratio 28 H Glucose 106 Calculated Osmolality 274 L Calcium 8.3 Corrected Calcium 9.2 Phosphorus 2.0 L Magnesium 2.0 Total Bilirubin 0.5 AST 20 ALT 27 Alkaline Phosphatase 68 Total Protein 5.1 L Albumin 2.9 L Globulin 2.2 L Albumin/Globulin Ratio 1.3 ABG Interpretation ABG results: 12/09/24 11:24 ABG pH 7.44 ABG pCO2 29 L ABG pO2 108 ABG HCO3 20 ABG O2 Saturation 99 H ABG Base Excess -3 Quality Measures Quality Measures sepsis (White count 20.6, lactic 2.3, CRP 3.5, procalcitonin 0.07.) Current suspected stage: ruled out Possible source: skin/soft tissue Blood cultures ordered: yes Antibiotic ordered: Yes Advance care planning discussed with:: patient Assessment & Plan Assessment Current Active Medications: Generic Name Dose Route Start Last Admin Trade Name Freq PRN Reason Stop Dose Admin Acetaminophen 650 mg 12/08/24 00:24 Acetaminophen 325 Mg Tablet PO 01/07/25 00:23 Q6H PRN Fever >100.4 Acetaminophen 650 mg 12/08/24 00:24 12/08/24 18:19 Acetaminophen 325 Mg Tablet PO 01/07/25 00:23 650 mg Q6H PRN Administration PAIN SCALE 1-3 (mild Hydrocodone Bitart/Acetaminophen 1 tab 12/08/24 00:24 Hydrocodone/Apap 5/325 Tablet PO 12/13/24 00:23 Q4HR PRN PAIN SCALE 4-6 (Moderate Atenolol 25 mg 12/11/24 12:15 12/11/24 12:43 Atenolol 25 Mg Tablet PO 01/10/25 12:14 25 mg QDAY IZABEL Administration Atorvastatin Calcium 80 mg 12/10/24 21:00 12/10/24 21:34 Atorvastatin Calcium 20 Mg Tablet PO 01/09/25 20:59 80 mg HS IZABEL Administration Dexamethasone 2 mg 12/18/24 09:00 Dexamethasone 1 Mg Tablet PO 12/20/24 08:59 QDAY IZABEL Dexamethasone 8 mg 12/12/24 09:00 Dexamethasone 4 Mg Tablet PO 12/15/24 08:59 QDAY IZABEL Dexamethasone 4 mg 12/15/24 09:00 Dexamethasone 4 Mg Tablet PO 12/18/24 08:59 QDAY IZABEL Dexamethasone 12 mg/ 15 mg 12/11/24 09:00 12/11/24 09:17 Dexamethasone 3 mg PO 12/12/24 08:59 15 mg QDAY IZABEL Administration Emtricitabine/Tenofovir 1 tab 12/09/24 09:00 12/11/24 09:16 Emtricitabine 200 Mg/Tenofovir 300 Mg Tab (Non-Form) PO 12/16/24 08:59 1 tab QDAY IZABEL Administration Piperacillin/Tazobactam/Dextrose 3.375 gm in 50 mls @ 100 mls/hr 12/08/24 00:32 12/11/24 14:19 Zosyn IV 12/15/24 00:31 100 mls/hr Q8HR IZABEL Administration Ondansetron HCl 4 mg 12/08/24 00:24 Ondansetron Inj 2 Mg/Ml Inj 2 Ml IVP 01/07/25 00:23 Q6H PRN NAUSEA OR VOMITING Protocol Plan A 69-year-old male with significant past medical history of hypertension, hyperlipidemia, CAD status post 2 stents in 2003, recent ICH in 09/2024 currently residing in nursing facility was brought to the hospital with chief complaints of worsening of his ulcer and swelling on his buttocks since 1 week and cardiology is consulted for paroxysmal atrial fibrillation # Paroxysmal atrial fibrillation ---> reverted to normal sinus rhythm - Patient is admitted to the hospital for gluteal cellulitis and abscess - Patient was supposed to go to surgery on 12/09/2024, but developed tachycardia with heart rate around 150 and mild altered sensorium before going to the surgery - Telemetry strips showed atrial fibrillation with rapid ventricular rate - Patient received 3.5 L of fluid in total, 1 diltiazem IV push and 1 dose of digoxin 0.25 mg - Patient reverted to normal sinus rhythm after fluid resuscitation and medications - Cardiology is consulted as patient had previous history of CAD and tachyarrhythmia - [id number] is 5, has bled score is 4 Plan - Recommended to continue telemetry monitoring - Recommended to give adequate hydration to the patient - [id number] is high, no need of anticoagulation as of now as the paroxysmal A-fib seems to be occurring in the setting of ongoing abscess. - Resumed his home atenolol 25mg once daily - Echocardiogram - Keep magnesium greater than 2 and potassium greater than 4 # History of CAD s/p stenting - Patient had extensive family history of CAD in his family - Patient underwent 2 stents placement in 2003 Plan - Recommend to continue aspirin and statin # History of hypertension - Patient's blood pressure is within normal limits during the hospital stay without any medications Plan - Recommended to continue to monitor blood pressures and start medications as needed #Acute encephalopathy likely multifactorial, resolved #Right buttock cellulitis #Leukocytosis #Lactic acidosis, resolved #Hx of ICH Management of the rest of the medical conditions to be treated by primary team Patient plan of care was discussed with Outside Sales Account Manager Dr. Gilbert Wang, PGY2
--- NOTE | 2024-12-11 20:10 | ESPR_ITS ---
Documentation for date of: 12/11/24 Subjective Subjective Interval history: Patient was seen and examined at the bedside. No acute overnight events were reported. Patient was feeling well and was interactive. Patient's sister was at the bedside and all her questions were addressed. Patient had mild flushing around her face. Patient was given Benadryl 25 mg p.o. x 1. Surgeon Dr. Glass recommended to keep the patient and she will evaluate wound on Saturday for possibility of wound VAC. Vancomycin was discontinued. Electrolytes were repleted. White count improving. Hemoglobin stable. All labs and orders were reviewed. Exam Vital Signs Temp Pulse Resp BP Pulse Ox O2 Del Method O2 Flow Rate 97.0 F 66 24 H 118/71 93 L Nasal Cannula 2 12/11/24 16:00 12/11/24 16:00 12/11/24 16:00 12/11/24 16:12/11/24 16:00 12/11/24 16:12/11/24 16:00 Narrative Exam General: A/O x3, no acute distress Lungs: Clear SHIVA to auscultation and percussion, No accessory muscle use. Cardio: Normal S1/S2, regular rhythm, no murmurs, no JVD Abdomen: Soft, non-tender, no palpable masses, no guarding or rebound. Extremities: Symmetrical, no significant deformities, no peripheral edema , non-tender, peripheral pulses presents. Skin: No rashes, no lesions, warm to touch, 10x12 cm indurated mass nonfluctuating at the R side of the intergluteal cleft. Neuro: L sided weakness compared to the R side, No facial asymmetry, No sensory deficits, able to follow commands and move all extremities Psych: Slow response Objective Labs 12/12/24 04:48 12/12/24 04:48 Labs: Laboratory Results - last 24 hr 12/11/24 04:55 WBC 13.7 H RBC 3.72 L Hgb 11.5 L Hct 32.0 L MCV 86 MCH 30.9 MCHC 35.9 RDW Std Deviation 46.0 H Plt Count 126 L Neut % (Auto) 83 H Lymph % (Auto) 12 [place] % (Auto) 3 Eos % (Auto) 0 Baso % (Auto) 0 Neut # (Auto) 11.4 H Lymph # (Auto) 1.6 [place] # (Auto) 0.4 Eos # (Auto) 0.0 Baso # (Auto) 0.0 Immature Gran # (Auto) 0.30 H Absolute Nucleated RBC 0.00 Immature Gran % 2 H Nucleated RBC % 0 Sodium 137 Potassium 4.1 D Chloride 105 Carbon Dioxide 22.0 Anion Gap 10 BUN 14 Creatinine 0.5 L Estim Creat Clear Calc 144.0 eGFR > 60 BUN/Creatinine Ratio 28 H Glucose 106 Calculated Osmolality 274 L Calcium 8.3 Corrected Calcium 9.2 Phosphorus 2.0 L Magnesium 2.0 Total Bilirubin 0.5 AST 20 ALT 27 Alkaline Phosphatase 68 Total Protein 5.1 L Albumin 2.9 L Globulin 2.2 L Albumin/Globulin Ratio 1.3 ABG Interpretation ABG results: 12/09/24 11:24 ABG pH 7.44 ABG pCO2 29 L ABG pO2 108 ABG HCO3 20 ABG O2 Saturation 99 H ABG Base Excess -3 Quality Measures Quality Measures sepsis (White count 20.6, lactic 2.3, CRP 3.5, procalcitonin 0.07.) Current suspected stage: sepsis Possible source: skin/soft tissue Blood cultures ordered: yes Antibiotic ordered: Yes Advance care planning discussed with:: other Assessment & Plan Assessment Current Active Medications: Generic Name Dose Route Start Last Admin Trade Name Freq PRN Reason Stop Dose Admin Acetaminophen 650 mg 12/08/24 00:24 Acetaminophen 325 Mg Tablet PO 01/07/25 00:23 Q6H PRN Fever >100.4 Acetaminophen 650 mg 12/08/24 00:24 12/08/24 18:19 Acetaminophen 325 Mg Tablet PO 01/07/25 00:23 650 mg Q6H PRN Administration PAIN SCALE 1-3 (mild Hydrocodone Bitart/Acetaminophen 1 tab 12/08/24 00:24 Hydrocodone/Apap 5/325 Tablet PO 12/13/24 00:23 Q4HR PRN PAIN SCALE 4-6 (Moderate Atenolol 25 mg 12/11/24 12:15 12/11/24 12:43 Atenolol 25 Mg Tablet PO 01/10/25 12:14 25 mg QDAY IZABEL Administration Atorvastatin Calcium 80 mg 12/10/24 21:00 12/10/24 21:34 Atorvastatin Calcium 20 Mg Tablet PO 01/09/25 20:59 80 mg HS IZABEL Administration Dexamethasone 2 mg 12/18/24 09:00 Dexamethasone 1 Mg Tablet PO 12/20/24 08:59 QDAY IZABEL Dexamethasone 8 mg 12/12/24 09:00 Dexamethasone 4 Mg Tablet PO 12/15/24 08:59 QDAY IZABEL Dexamethasone 4 mg 12/15/24 09:00 Dexamethasone 4 Mg Tablet PO 12/18/24 08:59 QDAY IZABEL Dexamethasone 12 mg/ 15 mg 12/11/24 09:00 12/11/24 09:17 Dexamethasone 3 mg PO 12/12/24 08:59 15 mg QDAY IZABEL Administration Emtricitabine/Tenofovir 1 tab 12/09/24 09:00 12/11/24 09:16 Emtricitabine 200 Mg/Tenofovir 300 Mg Tab (Non-Form) PO 12/16/24 08:59 1 tab QDAY IZABEL Administration Piperacillin/Tazobactam/Dextrose 3.375 gm in 50 mls @ 100 mls/hr 12/08/24 00:32 12/11/24 14:19 Zosyn IV 12/15/24 00:31 100 mls/hr Q8HR IZABEL Administration Ondansetron HCl 4 mg 12/08/24 00:24 Ondansetron Inj 2 Mg/Ml Inj 2 Ml IVP 01/07/25 00:23 Q6H PRN NAUSEA OR VOMITING Protocol Plan Plan 69-year-old male with past medical history of hypertension, hyperlipidemia, CAD s/p 2 stents, and recent intracranial hemorrhage on 10/01/2024, admitted for management of right buttock cellulitis. #Right buttock cellulitis, s/p I&D #Leukocytosis, improving #Lactic acidosis, resolved Patient came in with initial complaints of pain in the right buttocks Abdomen/pelvis CT showed perianal inflammation which extends to the inter gluteal fold with cellulitis primarily the right buttock region, no fluid-filled drainable abscess. In the ED patient received vancomycin and Zosyn x 1 Negative acid was 2.3 and downtrended to 1.3 WBCs downtrended to 17.3 from 20.6. Patient did not have any fevers, tachycardia, or any signs of systemic inflammatory response other than WBC elevation. 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 Postcontrast images demonstrate enhancement of this mass, differential would include luxury enhancement in a right frontal infarct versus enhancement in a right frontal tumor Plan Neuro suspected it to be old infarct/bleed, did not recommend transfer Will Start 15 mg Decadron for tomorrow (for a total of 3 days 15 mg decadron equivalent), then 8 mg Decadron starting 12/11/2024 for 3 days, followed by 4 mg daily x3 days and 2 mg daily for 2 days and then stop. Neuro checks q4 hr Aspiration precautions Monitor for any new worsening neurological symptoms SCD's for DVT prophylaxis #Facial flushing likely related to vancomycin ? Benadryl given 25 mg p.o. x 1 ? DC'd vancomycin #Hypotension, resolved #New Onset A-fib RVR, currently rate controlled #Acute encephalopathy likely multifactorial, resolved Refer to previous note and/or 12-09-2024 event note for complete write up regarding rapid response Will follow up the medical records from [facility] Patient continues to be on hydrocortisone 100 mg q6 hr. Neurology recommended Steroid taper to be completed over 6 days: 4 mg daily x3 days and 2 mg daily for 2 days and then stop. Total daily dosage of hydrocortisone converted to Decadron equals 15 mg q daily, which 12/10/2024 will be his 2nd day 15 mg q day equivalent Plan: -Crime Lab Analyst recommended to continue atenolol 25 mg p.o. daily patient's home medication - Will Start 15 mg Decadron for tomorrow (for a total of 3 days 15 mg decadron equivalent), then 8 mg Decadron starting 12/11/2024 for 3 days, followed by 4 mg daily x3 days and 2 mg daily for 2 days and then stop. #Leukocytosis, improving Likely related to infection. WBC count trending down. Continue to trend. #Normocytic Anemia #Chronic Thrombocytopenia -Anemia Likely due to dilutional due to IV fluids No signs of overt bleeding. PRBC if hgb drops below 7. #Elevated troponin-I Likely due to demand ischemia No signs of chest pain No acute st changes on ecg Chronic disease: #Hx of hypertension #Hx of CAD s/p stents #Hx of ICH Blood pressure has been stable since came into the ED. Patient's home medication includes atenolol 25 mg q daily and atorvastatin 40 mg q daily. Blood pressure has been well controlled, will add anti-hypertensives as necessary. Disposition: Patient admitted to med surg for R buttock cellulitis, pending wound vac if necessary, will be evaulated Saturday12/14/2024 Diet: Cardiac GI prophylaxis: not indicated DVT prophylaxis: SCDs due to recent ICH Code: Full Plan of care discussed with attending physician, Dr. Rell Espinosa MD, PGY 3 Attending Provider Attestation/Addendum I, Radha Zacarias DO, attest that I was physically present for the [place] portions of the service and evaluated the patient with the resident and I reviewed and discussed the case with the resident and agree with the resident's findings and plans of care as documented above Patient seen and evaluated this AM. Patient states he is feeling well, no acute events overnight. Dressing over right buttock is clean, dry and intact. Pending surgical re-evaluation for possible wound vac placement. Patient is in sinus rhythm, no acute events overnight. Patient remains stable. Case discussed with skip miner, resume atenelol. No need for anticoagulation as afib was suspected to be secondary to infection.
[2024-12-11] MEDS: ATORVASTATIN CALCIUM 20 MG TABLET 80 MG PO (20:37)
[2024-12-11 23:41] LABS: Vancomycin,Trough 10.4 mcg/mL (5.0-10.0)
--- NOTE | 2024-12-11 23:44 | VVPN_ITS ---
Telemedicine visit statement This visit was conducted with the use of phone was obtained on 12/11/24 at 2344. Documentation for date of: 12/11/24 Subjective Subjective Interval history: Patient is in medsurg, no complaints, no new symptoms reported. Continues to have the left LE weakness. Virtual exam Vital Signs Temp Pulse Resp BP Pulse Ox O2 Del Method O2 Flow Rate 97.0 F 73 16 122/81 91 L Nasal Cannula 2 12/11/24 20:00 12/11/24 20:00 12/11/24 20:00 12/11/24 20:00 12/11/24 20:00 12/11/24 20:00 12/11/24 20:00 Objective Labs 12/11/24 04:55 12/11/24 04:55 Labs: Laboratory Results - last 24 hr 12/11/24 12/11/24 04:55 20:55 WBC 13.7 H RBC 3.72 L Hgb 11.5 L Hct 32.0 L MCV 86 MCH 30.9 MCHC 35.9 RDW Std Deviation 46.0 H Plt Count 126 L Neut % (Auto) 83 H Lymph % (Auto) 12 [place] % (Auto) 3 Eos % (Auto) 0 Baso % (Auto) 0 Neut # (Auto) 11.4 H Lymph # (Auto) 1.6 [place] # (Auto) 0.4 Eos # (Auto) 0.0 Baso # (Auto) 0.0 Immature Gran # (Auto) 0.30 H Absolute Nucleated RBC 0.00 Immature Gran % 2 H Nucleated RBC % 0 Sodium 137 Potassium 4.1 D Chloride 105 Carbon Dioxide 22.0 Anion Gap 10 BUN 14 Creatinine 0.5 L Estim Creat Clear Calc 144.0 eGFR > 60 BUN/Creatinine Ratio 28 H Glucose 106 Calculated Osmolality 274 L Calcium 8.3 Corrected Calcium 9.2 Phosphorus 2.0 L Magnesium 2.0 Total Bilirubin 0.5 AST 20 ALT 27 Alkaline Phosphatase 68 Total Protein 5.1 L Albumin 2.9 L Globulin 2.2 L Albumin/Globulin Ratio 1.3 Vancomycin Trough 10.4 H ABG Interpretation ABG results: 12/09/24 11:24 ABG pH 7.44 ABG pCO2 29 L ABG pO2 108 ABG HCO3 20 ABG O2 Saturation 99 H ABG Base Excess -3 Assessment & Plan Assessment #Recent intracranial hemorrhage with DANIELA /Subdural and subarachnoid secondary to Trauma #Hx of hypertension Home meds: Atenolol 25 mg q daily and atorvastatin 40 mg q daily Patient has residual left-sided weakness, 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 No acute change in symptoms. Imaging demonstrated no acute intracranial hemorrhage. Given that patient's ICH not due to tumor, no need to continue steroids. Primary team requested records from [facility], pending reports. CT head w/o 12/09: Large area of encephalomalacia in the right frontal lobe again noted with mass effect unchanged upon the right lateral ventricle. No interval acute hemorrhage MRI brain 12/09: Large area of restricted diffusion with signal deficit consistent with infarct in the right frontal lobe with subacute hemorrhage. Postcontrast images demonstrate enhancement of this mass Plan: - Steroid taper to be completed over 6 days -- Will slowly wean him off of Decadron: 4 mg daily x3 days and 2 mg daily for 2 days and then stop. - Will review the medical records from [facility] - Support for left foot when appropriate given patient's mobility - BP control per primary team #New Onset A-fib RVR rate controlled Given recent ICH, anticoagulants contraindicated #Right buttock cellulitis s/p Incision and drainage, periodic dressing and antibiotics. Managed by primary team
[2024-12-12] VITALS (9 sets, daily range): BP systolic 104–118; BP diastolic 61–77; PULSE 42–82; RESP 17–90; TEMP 36.1–36.8; O2SAT 92–99; BMI 27.0
--- NOTE | 2024-12-12 04:22 | PC.NURSE ---
professor of industrial technology notified RN that the patient's heart rate dropped to 42. Patient is asymptomatic and vital signs remain stable Dr. Guerra was notified. No new orders received. Will continue to monitor.
[2024-12-12] MEDS: PIPER/TAZO 3.375 GM PREMIX 3.375 GM/50 ML BAG IV (05:20)
[2024-12-12 05:32] LABS: Basophils # (Auto) 0.0 Thou/mm3 (0.0-0.2); Basophils % (Auto) 0 % (0-2.5); Eosinophils # (Auto) 0.0 Thou/mm3 (0.0-0.5); Eosinophils % (Auto) 0 % (0-10); Hematocrit 30.4 % (41.0-53.0); Hemoglobin 10.8 g/dL (13.5-16.0); Immature Granulocytes Auto 0.19 Thou/mm3 (0.00-0.00); Lymphocytes # (Auto) 1.6 Thou/mm3 (1.0-4.8); Lymphocytes % (Auto) 17 % (10-50); Mean Corpuscular HGB Conc 35.5 g/dl (31.0-37.0); Mean Corpuscular Hemoglobin 30.9 pg (25.0-35.0); Mean Corpuscular Volume 87 fL (80-100); Monocytes # (Auto) 0.5 Thou/mm3 (0.0-0.8); Monocytes % (Auto) 5 % (0-12); Neutrophils # (Auto) 7.2 Thou/mm3 (1.8-7.7); Neutrophils % (Auto) 75 % (37-80); Nucleated Red Blood Cell # 0.00 Thou/mm3 (0.00-0.00); Nucleated Red Blood Cell % 0 /100 WBC (0); Platelet Count 124 Thou/mm3 (140-440); RDW Standard Deviation 47.0 fL (35.1-43.9); Red Blood Count 3.49 Miln/mm3 (4.50-5.90); White Blood Count 9.6 Thou/mm3 (3.8-10.6)
[2024-12-12 06:06] LABS: Alanine Aminotransferase 26 U/L (10-49); Albumin, Serum 2.7 gm/dL (3.4-4.8); Albumin/Globulin Ratio 1.3 (1.2-2.2); Alkaline Phosphatase 58 U/L (46-116); Anion Gap 9 (7-16); Aspartate Amino Transferase 17 U/L (0-34); BUN/Creatinine Ratio 22 Ratio (12-20); Bilirubin,Total 0.7 mg/dL (0.3-1.2); Blood Urea Nitrogen 13 mg/dL (9-23); Calcium 8.3 mg/dL (8.3-10.6); Calcium (Corrected) 9.3 mg/dL (8.5-10.1); Carbon Dioxide 27.2 mMol/L (20.0-31.0); Chloride 103 mMol/L (98-107); Creatinine (Component) 0.6 mg/dL (0.6-1.3); Estimated Creatinine Clearance 120.0 mL/min (>60); Globulin 2.1 gm/dL (2.3-3.5); Glucose 85 mg/dL (74-106); Magnesium 1.9 mg/dL (1.6-2.6); Osmolality,Calculated 276 (275-295); Phosphorous 2.2 mg/dL (2.4-5.1); Potassium 4.0 mMol/L (3.4-5.1); Sodium 139 mMol/L (136-145); Total Protein 4.8 gm/dL (5.7-8.2); eGFR > 60 See Note
[2024-12-12] MEDS: DOXYCYCLINE INJ 100 MG in SODIUM CHLORIDE 0.9% (POP) 100 ML IV ×2 (14:22→20:58)
--- NOTE | 2024-12-12 15:37 | PD.RESPRO ---
Documentation for date of: 12/12/24 Subjective Subjective Interval history: Patient was seen and examined at the bedside. No acute overnight events reported. Patient was laying in a posture where he could have less pain in his wound. He reported that during wound change nurse accidentally placed hand on his open wound which was hurting. Heart rate appears to be controlled and blood pressure is stable. White count stable. Blood cultures came negative. Vancomycin was discontinued. Zosyn was de-escalated to doxycycline. Will await for surgery to evaluate the wound on Saturday for possible placement of wound VAC. All labs and orders were reviewed. Plan of care was discussed with family. Exam Vital Signs Temp Pulse Resp BP Pulse Ox O2 Del Method O2 Flow Rate 98.2 F 55 L 17 105/61 93 L Nasal Cannula 2 12/12/24 12:00 12/12/24 12:00 12/12/24 12:12/12/24 12:00 12/12/24 12:00 12/12/24 12:12/12/24 12:00 Narrative Exam General: A/O x3, no acute distress Lungs: Clear SHIVA to auscultation and percussion, No accessory muscle use. Cardio: Normal S1/S2, regular rhythm, no murmurs, no JVD Abdomen: Soft, non-tender, no palpable masses, no guarding or rebound. Extremities: Symmetrical, no significant deformities, no peripheral edema , non-tender, peripheral pulses presents. Skin: No rashes, no lesions, warm to touch, 10x12 cm indurated mass nonfluctuating at the R side of the intergluteal cleft. Neuro: L sided weakness compared to the R side, No facial asymmetry, No sensory deficits, able to follow commands and move all extremities Psych: Slow response Objective Labs 12/13/24 05:02 12/13/24 05:02 Labs: Laboratory Results - last 24 hr 12/11/24 12/12/24 20:55 04:48 WBC 9.6 RBC 3.49 L Hgb 10.8 L Hct 30.4 L MCV 87 MCH 30.9 MCHC 35.5 RDW Std Deviation 47.0 H Plt Count 124 L Neut % (Auto) 75 Lymph % (Auto) 17 Catron % (Auto) 5 Eos % (Auto) 0 Baso % (Auto) 0 Neut # (Auto) 7.2 Lymph # (Auto) 1.6 Catron # (Auto) 0.5 Eos # (Auto) 0.0 Baso # (Auto) 0.0 Immature Gran # (Auto) 0.19 H Absolute Nucleated RBC 0.00 Immature Gran % 2 H Nucleated RBC % 0 Sodium 139 Potassium 4.0 Chloride 103 Carbon Dioxide 27.2 Anion Gap 9 BUN 13 Creatinine 0.6 Estim Creat Clear Calc 120.0 eGFR > 60 BUN/Creatinine Ratio 22 H Glucose 85 Calculated Osmolality 276 Calcium 8.3 Corrected Calcium 9.3 Phosphorus 2.2 L Magnesium 1.9 Total Bilirubin 0.7 AST 17 ALT 26 Alkaline Phosphatase 58 Total Protein 4.8 L Albumin 2.7 L Globulin 2.1 L Albumin/Globulin Ratio 1.3 Vancomycin Trough 10.4 H ABG Interpretation ABG results: 12/09/24 11:24 ABG pH 7.44 ABG pCO2 29 L ABG pO2 108 ABG HCO3 20 ABG O2 Saturation 99 H ABG Base Excess -3 Quality Measures Quality Measures sepsis (White count 20.6, lactic 2.3, CRP 3.5, procalcitonin 0.07.) Current suspected stage: sepsis Possible source: skin/soft tissue Blood cultures ordered: yes Antibiotic ordered: Yes Advance care planning discussed with:: other Assessment & Plan Assessment Current Active Medications: Generic Name Dose Route Start Last Admin Trade Name Freq PRN Reason Stop Dose Admin Acetaminophen 650 mg 12/08/24 00:24 Acetaminophen 325 Mg Tablet PO 01/07/25 00:23 Q6H PRN Fever >100.4 Acetaminophen 650 mg 12/08/24 00:24 12/08/24 18:19 Acetaminophen 325 Mg Tablet PO 01/07/25 00:23 650 mg Q6H PRN Administration PAIN SCALE 1-3 (mild Hydrocodone Bitart/Acetaminophen 1 tab 12/08/24 00:24 Hydrocodone/Apap 5/325 Tablet PO 12/13/24 00:23 Q4HR PRN PAIN SCALE 4-6 (Moderate Atenolol 25 mg 12/11/24 12:15 12/12/24 08:48 Atenolol 25 Mg Tablet PO 01/10/25 12:14 25 mg QDAY IZABEL Administration Atorvastatin Calcium 80 mg 12/10/24 21:00 12/11/24 20:37 Atorvastatin Calcium 20 Mg Tablet PO 01/09/25 20:59 80 mg HS IZABEL Administration Dexamethasone 8 mg 12/12/24 09:00 12/12/24 09:05 Dexamethasone 4 Mg Tablet PO 12/15/24 08:59 Not Given QDAY IZABEL Dexamethasone 4 mg 12/16/24 09:00 Dexamethasone 4 Mg Tablet PO 12/19/24 08:59 QDAY IZABEL Dexamethasone 2 mg 12/20/24 09:00 Dexamethasone 1 Mg Tablet PO 12/22/24 08:59 QDAY IZABEL Emtricitabine/Tenofovir 1 tab 12/09/24 09:00 12/12/24 08:51 Emtricitabine 200 Mg/Tenofovir 300 Mg Tab (Non-Form) PO 12/16/24 08:59 Not Given QDAY IZABEL Doxycycline Hyclate 100 mg/ 100 mls @ 100 mls/hr 12/12/24 14:15 12/12/24 14:22 Sodium Chloride IV 12/19/24 14:14 100 mls/hr BID IZABEL Administration Ondansetron HCl 4 mg 12/08/24 00:24 Ondansetron Inj 2 Mg/Ml Inj 2 Ml IVP 01/07/25 00:23 Q6H PRN NAUSEA OR VOMITING Protocol Plan Plan 69-year-old male with past medical history of hypertension, hyperlipidemia, CAD s/p 2 stents, and recent intracranial hemorrhage on 10/01/2024, admitted for management of right buttock cellulitis. #Right buttock cellulitis, s/p I&D #Leukocytosis, improving #Lactic acidosis, resolved Patient came in with initial complaints of pain in the right buttocks Abdomen/pelvis CT showed perianal inflammation which extends to the inter gluteal fold with cellulitis primarily the right buttock region, no fluid-filled drainable abscess. In the ED patient received vancomycin and Zosyn x 1 Negative acid was 2.3 and downtrended to 1.3 WBCs downtrended to 17.3 from 20.6. Patient did not have any fevers, tachycardia, or any signs of systemic inflammatory response other than WBC elevation. 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 Postcontrast images demonstrate enhancement of this mass, differential would include luxury enhancement in a right frontal infarct versus enhancement in a right frontal tumor Plan Neuro suspected it to be old infarct/bleed, did not recommend transfer Continue steroid taper as follows: 15 mg Decadron for tomorrow (for a total of 3 days 15 mg decadron equivalent), then 8 mg Decadron starting 12/11/2024 for 3 days, followed by 4 mg daily x3 days and 2 mg daily for 2 days and then stop. Neuro checks q4 hr Aspiration precautions Monitor for any new worsening neurological symptoms SCD's for DVT prophylaxis #Facial flushing likely related to vancomycin, resolved ? Benadryl given 25 mg p.o. x 1 ? DC'd vancomycin #Hypotension, resolved #New Onset A-fib RVR, currently rate controlled #Acute encephalopathy likely multifactorial, resolved Refer to previous note and/or 12-09-2024 event note for complete write up regarding rapid response Will follow up the medical records from [facility] Patient continues to be on hydrocortisone 100 mg q6 hr. Neurology recommended Steroid taper to be completed over 6 days: 4 mg daily x3 days and 2 mg daily for 2 days and then stop. 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 WBC count trending down. Continue to trend. #Normocytic Anemia #Chronic Thrombocytopenia -Anemia Likely due to dilutional due to IV fluids No signs of overt bleeding. PRBC if hgb drops below 7. #Elevated troponin-I Likely due to demand ischemia No signs of chest pain No acute st changes on ecg Chronic disease: #Hx of hypertension #Hx of CAD s/p stents #Hx of ICH Blood pressure has been stable since came into the ED. Patient's home medication includes atenolol 25 mg q daily and atorvastatin 40 mg q daily. Blood pressure has been well controlled, will add anti-hypertensives as necessary. Disposition: Patient admitted to med surg for R buttock cellulitis, pending wound vac if necessary, will be evaulated Saturday12/14/2024 Diet: Cardiac GI prophylaxis: not indicated DVT prophylaxis: SCDs due to recent ICH Code: Full Plan of care discussed with attending physician, Dr. Rell Espinosa MD, PGY 3 Attending Provider Attestation/Addendum I, Radha Zacarias DO, attest that I was physically present for the buitrago portions of the service and evaluated the patient with the resident and I reviewed and discussed the case with the resident and agree with the resident's findings and plans of care as documented above Patient seen and eval this a.m. Patient states that he has been difficult having difficulty finding a comfortable position that does not cause pain to his wound. Dressing is clean dry and intact. Patient currently on Zosyn, but will de-escalate antibiotics as patient grew Staph epidermidis on initial blood culture that excessive doxycycline. Suspect staph to be also the culprit for his wound. Patient has otherwise been afebrile. Pending surgical reevaluation on Saturday for possible wound VAC placement. Patient is otherwise controlled with just Tylenol. No acute events overnight.
[2024-12-12] MEDS: ATORVASTATIN CALCIUM 20 MG TABLET 80 MG PO (20:59)
--- NOTE | 2024-12-12 23:59 | VVPN_ITS ---
Telemedicine visit statement This visit was conducted with the use of phone was obtained on 12/12/24 at 2359. Documentation for date of: 12/12/24 Subjective Subjective Interval history: Patient is in medsurg, no complaints, no new symptoms reported. Continues to have the left LE weakness. Virtual exam Vital Signs Temp Pulse Resp BP Pulse Ox O2 Del Method O2 Flow Rate 98.3 F 61 17 105/65 92 L Nasal Cannula 2 12/12/24 20:00 12/12/24 20:00 12/12/24 20:00 12/12/24 20:00 12/12/24 20:00 12/12/24 20:00 12/12/24 20:00 Objective Labs 12/12/24 04:48 12/12/24 04:48 Labs: Laboratory Results - last 24 hr 12/12/24 04:48 WBC 9.6 RBC 3.49 L Hgb 10.8 L Hct 30.4 L MCV 87 MCH 30.9 MCHC 35.5 RDW Std Deviation 47.0 H Plt Count 124 L Neut % (Auto) 75 Lymph % (Auto) 17 [place]eller % (Auto) 5 Eos % (Auto) 0 Baso % (Auto) 0 Neut # (Auto) 7.2 Lymph # (Auto) 1.6 Teller # (Auto) 0.5 Eos # (Auto) 0.0 Baso # (Auto) 0.0 Immature Gran # (Auto) 0.19 H Absolute Nucleated RBC 0.00 Immature Gran % 2 H Nucleated RBC % 0 Sodium 139 Potassium 4.0 Chloride 103 Carbon Dioxide 27.2 Anion Gap 9 BUN 13 Creatinine 0.6 Estim Creat Clear Calc 120.0 eGFR > 60 BUN/Creatinine Ratio 22 H Glucose 85 Calculated Osmolality 276 Calcium 8.3 Corrected Calcium 9.3 Phosphorus 2.2 L Magnesium 1.9 Total Bilirubin 0.7 AST 17 ALT 26 Alkaline Phosphatase 58 Total Protein 4.8 L Albumin 2.7 L Globulin 2.1 L Albumin/Globulin Ratio 1.3 ABG Interpretation ABG results: 12/09/24 11:24 ABG pH 7.44 ABG pCO2 29 L ABG pO2 108 ABG HCO3 20 ABG O2 Saturation 99 H ABG Base Excess -3 Assessment & Plan Assessment #Recent intracranial hemorrhage with DANIELA /Subdural and subarachnoid secondary to Trauma #Hx of hypertension Patient has residual left-sided weakness, 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 No acute change in symptoms. Imaging demonstrated no acute intracranial hemorrhage. Given that patient's ICH not due to tumor, no need to continue steroids. Primary team requested records from [facility], pending reports. CT head w/o 12/09: Large area of encephalomalacia in the right frontal lobe again noted with mass effect unchanged upon the right lateral ventricle. No interval acute hemorrhage MRI brain 12/09: Large area of restricted diffusion with signal deficit consistent with infarct in the right frontal lobe with subacute hemorrhage. Postcontrast images demonstrate enhancement of this mass Plan: - Steroid taper to be completed over 6 days -- Will slowly wean him off of Decadron: 4 mg daily x3 days and 2 mg daily for 2 days and then stop. - Will review the medical records from [facility] - Foot brace for preventing drop foot - BP control per primary team #New Onset A-fib RVR rate controlled Given recent ICH, anticoagulants contraindicated #Right buttock cellulitis s/p Incision and drainage, periodic dressing and antibiotics. Managed by primary team
[2024-12-13] VITALS (14 sets, daily range): BP systolic 107–128; BP diastolic 69–87; PULSE 53–125; RESP 16–32; TEMP 36.2–36.7; O2SAT 92–97
[2024-12-13 05:51] LABS: Basophils # (Auto) 0.0 Thou/mm3 (0.0-0.2); Basophils % (Auto) 0 % (0-2.5); Eosinophils # (Auto) 0.1 Thou/mm3 (0.0-0.5); Eosinophils % (Auto) 1 % (0-10); Hematocrit 32.7 % (41.0-53.0); Hemoglobin 11.5 g/dL (13.5-16.0); Immature Granulocytes Auto 0.27 Thou/mm3 (0.00-0.00); Lymphocytes # (Auto) 1.7 Thou/mm3 (1.0-4.8); Lymphocytes % (Auto) 18 % (10-50); Mean Corpuscular HGB Conc 35.2 g/dl (31.0-37.0); Mean Corpuscular Hemoglobin 30.5 pg (25.0-35.0); Mean Corpuscular Volume 87 fL (80-100); Monocytes # (Auto) 0.5 Thou/mm3 (0.0-0.8); Monocytes % (Auto) 5 % (0-12); Neutrophils # (Auto) 7.0 Thou/mm3 (1.8-7.7); Neutrophils % (Auto) 74 % (37-80); Nucleated Red Blood Cell # 0.00 Thou/mm3 (0.00-0.00); Nucleated Red Blood Cell % 0 /100 WBC (0); Platelet Count 114 Thou/mm3 (140-440); RDW Standard Deviation 47.0 fL (35.1-43.9); Red Blood Count 3.77 Miln/mm3 (4.50-5.90); White Blood Count 9.5 Thou/mm3 (3.8-10.6)
[2024-12-13 06:26] LABS: Alanine Aminotransferase 37 U/L (10-49); Albumin, Serum 2.8 gm/dL (3.4-4.8); Albumin/Globulin Ratio 1.2 (1.2-2.2); Alkaline Phosphatase 64 U/L (46-116); Anion Gap 8 (7-16); Aspartate Amino Transferase 24 U/L (0-34); BUN/Creatinine Ratio 24 Ratio (12-20); Bilirubin,Total 0.9 mg/dL (0.3-1.2); Blood Urea Nitrogen 12 mg/dL (9-23); Calcium 8.1 mg/dL (8.3-10.6); Calcium (Corrected) 9.1 mg/dL (8.5-10.1); Carbon Dioxide 27.0 mMol/L (20.0-31.0); Chloride 100 mMol/L (98-107); Creatinine (Component) 0.5 mg/dL (0.6-1.3); Estimated Creatinine Clearance 144.0 mL/min (>60); Globulin 2.3 gm/dL (2.3-3.5); Glucose 77 mg/dL (74-106); Magnesium 1.7 mg/dL (1.6-2.6); Osmolality,Calculated 268 (275-295); Phosphorous 2.0 mg/dL (2.4-5.1); Potassium 3.5 mMol/L (3.4-5.1); Sodium 135 mMol/L (136-145); Total Protein 5.1 gm/dL (5.7-8.2); eGFR > 60 See Note
[2024-12-13] MEDS: NAPH,KPH MBDB 1 PACKET (1.5 GM) PO (08:52)
[2024-12-13] MEDS: EMTRICITABINE 200 MG/TENOFOVIR 300 MG TAB (NON-FORM) 1 TAB PO (08:52)
[2024-12-13] MEDS: DOXYCYCLINE INJ 100 MG in SODIUM CHLORIDE 0.9% (POP) 100 ML IV (08:52)
--- NOTE | 2024-12-13 15:14 | PD.RESPRO ---
Documentation for date of: 12/13/24 Subjective Subjective Interval history: No overnight events. Patient seen examined at bedside, resting comfortably. Denies fever, chills, chest pain, nausea, vomiting, shortness of breath. Wound appears to be healing well. Patient does have tachycardia and tachypnea, as needed metoprolol ordered. Chest x-ray pending. Surgery eval tomorrow. Exam Vital Signs Temp Pulse Resp BP Pulse Ox O2 Del Method O2 Flow Rate 97.4 F 115 H 18 112/76 94 L Nasal Cannula 2 12/13/24 11:59 12/13/24 12:56 12/13/24 11:59 12/13/24 11:59 12/13/24 11:59 12/13/24 11:59 12/13/24 11:59 Narrative Exam General: A/O x3, no acute distress Lungs: Clear SHIVA to auscultation and percussion, No accessory muscle use. Cardio: Normal S1/S2, regular rhythm, no murmurs, no JVD. Tachycardic. Abdomen: Soft, non-tender, no palpable masses, no guarding or rebound. Extremities: Symmetrical, no significant deformities, no peripheral edema , non-tender, peripheral pulses presents. Skin: No rashes, no lesions, right gluteal cleft wound, s/p debridement, healing well. Neuro: L sided weakness compared to the R side, No facial asymmetry, No sensory deficits, able to follow commands and move all extremities Psych: Slow response Objective Labs 12/14/24 04:54 12/14/24 04:54 Labs: Laboratory Results - last 24 hr 12/13/24 05:02 WBC 9.5 RBC 3.77 L Hgb 11.5 L Hct 32.7 L MCV 87 MCH 30.5 MCHC 35.2 RDW Std Deviation 47.0 H Plt Count 114 L Neut % (Auto) 74 Lymph % (Auto) 18 Allen % (Auto) 5 Eos % (Auto) 1 Baso % (Auto) 0 Neut # (Auto) 7.0 Lymph # (Auto) 1.7 Allen # (Auto) 0.5 Eos # (Auto) 0.1 Baso # (Auto) 0.0 Immature Gran # (Auto) 0.27 H Absolute Nucleated RBC 0.00 Immature Gran % 3 H Nucleated RBC % 0 Sodium 135 L Potassium 3.5 D Chloride 100 Carbon Dioxide 27.0 Anion Gap 8 BUN 12 Creatinine 0.5 L Estim Creat Clear Calc 144.0 eGFR > 60 BUN/Creatinine Ratio 24 H Glucose 77 Calculated Osmolality 268 L Calcium 8.1 L Corrected Calcium 9.1 Phosphorus 2.0 L Magnesium 1.7 Total Bilirubin 0.9 AST 24 ALT 37 Alkaline Phosphatase 64 Total Protein 5.1 L Albumin 2.8 L Globulin 2.3 Albumin/Globulin Ratio 1.2 ABG Interpretation ABG results: 12/09/24 11:24 ABG pH 7.44 ABG pCO2 29 L ABG pO2 108 ABG HCO3 20 ABG O2 Saturation 99 H ABG Base Excess -3 Quality Measures Quality Measures sepsis (White count 20.6, lactic 2.3, CRP 3.5, procalcitonin 0.07.) Current suspected stage: sepsis Possible source: skin/soft tissue Blood cultures ordered: yes Antibiotic ordered: Yes Advance care planning discussed with:: patient Assessment & Plan Assessment Current Active Medications: Generic Name Dose Route Start Last Admin Trade Name Freq PRN Reason Stop Dose Admin Acetaminophen 650 mg 12/08/24 00:24 Acetaminophen 325 Mg Tablet PO 01/07/25 00:23 Q6H PRN Fever >100.4 Acetaminophen 650 mg 12/08/24 00:24 12/08/24 18:19 Acetaminophen 325 Mg Tablet PO 01/07/25 00:23 650 mg Q6H PRN Administration PAIN SCALE 1-3 (mild Atenolol 25 mg 12/11/24 12:15 12/13/24 08:53 Atenolol 25 Mg Tablet PO 01/10/25 12:14 25 mg QDAY IZABEL Administration Atorvastatin Calcium 80 mg 12/10/24 21:00 12/12/24 20:59 Atorvastatin Calcium 20 Mg Tablet PO 01/09/25 20:59 80 mg HS IZABEL Administration Dexamethasone 8 mg 12/12/24 09:00 12/13/24 08:52 Dexamethasone 4 Mg Tablet PO 12/15/24 08:59 8 mg QDAY IZABEL Administration Dexamethasone 4 mg 12/16/24 09:00 Dexamethasone 4 Mg Tablet PO 12/19/24 08:59 QDAY IZABEL Dexamethasone 2 mg 12/20/24 09:00 Dexamethasone 1 Mg Tablet PO 12/22/24 08:59 QDAY IZABEL Emtricitabine/Tenofovir 1 tab 12/09/24 09:00 12/13/24 08:52 Emtricitabine 200 Mg/Tenofovir 300 Mg Tab (Non-Form) PO 12/16/24 08:59 1 tab QDAY IZABEL Administration Doxycycline Hyclate 100 mg/ 100 mls @ 100 mls/hr 12/12/24 14:15 12/13/24 08:52 Sodium Chloride IV 12/19/24 14:14 100 mls/hr BID IZABEL Administration Ondansetron HCl 4 mg 12/08/24 00:24 Ondansetron Inj 2 Mg/Ml Inj 2 Ml IVP 01/07/25 00:23 Q6H PRN NAUSEA OR VOMITING Protocol Plan Plan 69-year-old male with past medical history of hypertension, hyperlipidemia, CAD s/p 2 stents, and recent intracranial hemorrhage on 10/01/2024, admitted for management of right buttock cellulitis. #Right buttock cellulitis, s/p I&D #Leukocytosis, improving #Lactic acidosis, resolved Patient came in with initial complaints of pain in the right buttocks Abdomen/pelvis CT showed perianal inflammation which extends to the inter gluteal fold with cellulitis primarily the right buttock region, no fluid-filled drainable abscess. In the ED patient received vancomycin and Zosyn x 1 Negative acid was 2.3 and downtrended to 1.3 WBCs downtrended to 17.3 from 20.6. Patient did not have any fevers, tachycardia, or any signs of systemic inflammatory response other than WBC elevation. 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 Postcontrast images demonstrate enhancement of this mass, differential would include luxury enhancement in a right frontal infarct versus enhancement in a right frontal tumor Plan Neuro suspected it to be old infarct/bleed, did not recommend transfer Continue steroid taper as follows: 15 mg Decadron for tomorrow (for a total of 3 days 15 mg decadron equivalent), then 8 mg Decadron starting 12/11/2024 for 3 days, followed by 4 mg daily x3 days and 2 mg daily for 2 days and then stop. Neuro checks q4 hr Aspiration precautions Monitor for any new worsening neurological symptoms SCD's for DVT prophylaxis #Hypotension, resolved #New Onset A-fib RVR, currently rate controlled #Acute encephalopathy likely multifactorial, resolved Refer to previous note and/or 12-09-2024 event note for complete write up regarding rapid response Will follow up the medical records from [facility] Patient continues to be on hydrocortisone 100 mg q6 hr. Neurology recommended Steroid taper to be completed over 6 days: 4 mg daily x3 days and 2 mg daily for 2 days and then stop. 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 WBC count trending down. Continue to trend. #Normocytic Anemia #Chronic Thrombocytopenia -Anemia Likely due to dilutional due to IV fluids No signs of overt bleeding. PRBC if hgb drops below 7. #NSTEMI Type II - demand ischemia Mildly elevated troponin, resolved No signs of chest pain No acute st changes on ecg Chronic disease: #Hx of hypertension #Hx of CAD s/p stents #Hx of ICH Blood pressure has been stable since came into the ED. Patient's home medication includes atenolol 25 mg q daily and atorvastatin 40 mg q daily. Blood pressure has been well controlled, will add anti-hypertensives as necessary. Disposition: Patient admitted to med surg for R buttock cellulitis, pending wound vac if necessary, will be evaulated Saturday12/14/2024 Diet: Cardiac GI prophylaxis: not indicated DVT prophylaxis: SCDs due to recent ICH Code: Full Plan of care discussed with attending physician, Dr. Rell Arredondo MD PGY?2 Attending Provider Attestation/Addendum I, Radha Zacarias, , attest that I was physically present for the buitrago portions of the service and evaluated the patient with the resident and I reviewed and discussed the case with the resident and agree with the resident's findings and plans of care as documented above Patient seen and eval this a.m. He states that he is doing well. Family is at bedside. Pending evaluation by surgeon in a.m. for possible wound VAC placement. Left lower extremity edema appears somewhat improved. Patient has no active complaints at this time. Will continue with current management.
[2024-12-13] MEDS: RINGERS LACTATED 1000 ML 500 ML 999 ML IV (16:26)
--- NOTE | 2024-12-13 16:31 | XR_ITS ---
Examination: AP chest single view TECHNIQUE: AP portable sitting chest single view Date and time: December 13, 2024, 1731 hours Comparison December 09, 2024 INDICATIONS: Shortness of breath today. FINDINGS: Extensive bilateral lung opacity The cardiac contour is obscured There is moderate vascular congestion Prominent osteopenia IMPRESSION: Extensive bilateral pneumonia Suspicious for mild associated heart failure
[2024-12-13] MEDS: METOPROLOL TARTRATE INJ 1 MG/ML AMP 5 ML 5 MG IVP (17:13)
[2024-12-13] MEDS: RINGERS LACTATED 1000 ML 1,000 ML 85 ML IV (18:20)
--- NOTE | 2024-12-13 23:57 | PD.NEUROPROG ---
Documentation for date of: 12/13/24 Subjective Subjective Interval history: Patient was seen in [facility] today with his family at the bedside. He denies any new symptoms. Continues to have left lower extremity weakness. Exam - Neurology Vital Signs Temp Pulse Resp BP Pulse Ox O2 Del Method O2 Flow Rate 98.1 F 102 H 23 H 128/85 H 94 L Nasal Cannula 2 12/13/24 20:00 12/13/24 20:00 12/13/24 20:00 12/13/24 20:00 12/13/24 20:00 12/13/24 20:00 12/13/24 19:04 Narrative Exam GENERAL APPEARANCE: Well hydrated, well-nourished in no acute distress. HEENT: Normocephalic, atraumatic, extraocular movements intact. Pupils: Equal reacting to light and accommodation NECK: Supple, no JVD or bruits. CARDIOVASULAR: Heart: S1, S2 heard, regular without S3-S4 or murmur no rubs or gallops. LUNGS/CHEST: Clear to auscultation bilaterally. No rails, rhonchi, or wheezing. Normal inspection. ABDOMEN: Soft, nontender, with normal bowel sounds. No pulsatile masses. No rebound, rigidity, or guarding. Normal inspection and palpation. EXTREMITIES: Normal inspection and palpation. No edema, clubbing or cyanosis. SKIN: Warm and dry without rashes. Normal inspection. MUSCULOSKELETAL: No cervical, thoracic, lumbar or midline bony tenderness. Normal inspection. NEURO: Alert, awake and oriented x3. Cranial nerves: II through XII grossly intact. Speech and language: Normal with no dysarthria or dysphasia. Motor system: Tone and bulk: Normal: Strength: Moves all 4 extremities, left lower extremity strength 3/5; no pronator drift noted. Deep tendon reflexes: 1+ bilaterally symmetrical. Plantar reflex: Downgoing bilaterally. Sensory system: Intact to all modalities of sensation bilaterally. Coordination: Intact to [id number]-[id number]-[id number] test bilaterally. No ataxia, no dysmetria, or dysdiadochokinesia noted. No intention tremors noted. Gait: Cannot be tested, no signs of meningeal irritation noted. PSYCHIATRIC: Normal mood and affect. Objective Labs 12/14/24 04:54 12/13/24 05:02 Labs: Laboratory Results - last 24 hr 12/13/24 05:02 WBC 9.5 RBC 3.77 L Hgb 11.5 L Hct 32.7 L MCV 87 MCH 30.5 MCHC 35.2 RDW Std Deviation 47.0 H Plt Count 114 L Neut % (Auto) 74 Lymph % (Auto) 18 [place] % (Auto) 5 Eos % (Auto) 1 Baso % (Auto) 0 Neut # (Auto) 7.0 Lymph # (Auto) 1.7 [place] # (Auto) 0.5 Eos # (Auto) 0.1 Baso # (Auto) 0.0 Immature Gran # (Auto) 0.27 H Absolute Nucleated RBC 0.00 Immature Gran % 3 H Nucleated RBC % 0 Sodium 135 L Potassium 3.5 D Chloride 100 Carbon Dioxide 27.0 Anion Gap 8 BUN 12 Creatinine 0.5 L Estim Creat Clear Calc 144.0 eGFR > 60 BUN/Creatinine Ratio 24 H Glucose 77 Calculated Osmolality 268 L Calcium 8.1 L Corrected Calcium 9.1 Phosphorus 2.0 L Magnesium 1.7 Total Bilirubin 0.9 AST 24 ALT 37 Alkaline Phosphatase 64 Total Protein 5.1 L Albumin 2.8 L Globulin 2.3 Albumin/Globulin Ratio 1.2 ABG Interpretation ABG results: 12/09/24 11:24 ABG pH 7.44 ABG pCO2 29 L ABG pO2 108 ABG HCO3 20 ABG O2 Saturation 99 H ABG Base Excess -3 Assessment & Plan Additional Assessment & Plan Additional Plan: #Recent intracranial hemorrhage with DANIELA /Subdural and subarachnoid secondary to Trauma #Hx of hypertension Patient has residual left-sided weakness, 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 No acute change in symptoms. Imaging demonstrated no acute intracranial hemorrhage. Given that patient's ICH not due to tumor, no need to continue steroids. Primary team requested records from [facility], pending reports. CT head w/o 12/09: Large area of encephalomalacia in the right frontal lobe again noted with mass effect unchanged upon the right lateral ventricle. No interval acute hemorrhage MRI brain 12/09: Large area of restricted diffusion with signal deficit consistent with infarct in the right frontal lobe with subacute hemorrhage. Postcontrast images demonstrate enhancement of this mass Plan: - Steroid taper to be completed over 6 days -- Will slowly wean him off of Decadron: 4 mg daily x3 days and 2 mg daily for 2 days and then stop. - Will review the medical records from [facility], we will try to contact [facility] as well - Foot brace for preventing drop foot - BP control per primary team #New Onset A-fib RVR rate controlled Given recent ICH, anticoagulants contraindicated #Right buttock cellulitis s/p Incision and drainage, periodic dressing and antibiotics. Managed by primary team
[2024-12-14] VITALS (9 sets, daily range): BP systolic 105–122; BP diastolic 71–89; PULSE 65–117; RESP 18–26; TEMP 36.1–36.6; O2SAT 93–96; BMI 12.0
[2024-12-14] MEDS: ATORVASTATIN CALCIUM 20 MG TABLET 80 MG PO ×2 (00:11→20:37)
[2024-12-14] MEDS: DOXYCYCLINE INJ 100 MG in SODIUM CHLORIDE 0.9% (POP) 100 ML IV ×3 (00:15→20:38)
[2024-12-14 06:15] LABS: Basophils # (Auto) 0.0 Thou/mm3 (0.0-0.2); Basophils % (Auto) 0 % (0-2.5); Eosinophils # (Auto) 0.1 Thou/mm3 (0.0-0.5); Eosinophils % (Auto) 1 % (0-10); Hematocrit 31.5 % (41.0-53.0); Hemoglobin 11.3 g/dL (13.5-16.0); Immature Granulocytes Auto 0.45 Thou/mm3 (0.00-0.00); Lymphocytes # (Auto) 2.4 Thou/mm3 (1.0-4.8); Lymphocytes % (Auto) 22 % (10-50); Mean Corpuscular HGB Conc 35.9 g/dl (31.0-37.0); Mean Corpuscular Hemoglobin 30.6 pg (25.0-35.0); Mean Corpuscular Volume 85 fL (80-100); Monocytes # (Auto) 0.4 Thou/mm3 (0.0-0.8); Monocytes % (Auto) 3 % (0-12); Neutrophils # (Auto) 7.6 Thou/mm3 (1.8-7.7); Neutrophils % (Auto) 69 % (37-80); Nucleated Red Blood Cell # 0.00 Thou/mm3 (0.00-0.00); Nucleated Red Blood Cell % 0 /100 WBC (0); Platelet Count 114 Thou/mm3 (140-440); RDW Standard Deviation 45.2 fL (35.1-43.9); Red Blood Count 3.69 Miln/mm3 (4.50-5.90); White Blood Count 11.0 Thou/mm3 (3.8-10.6)
[2024-12-14 06:46] LABS: Lymphocytes, Absolute 1769 cells/uL (850-3900)
[2024-12-14 06:51] LABS: Alanine Aminotransferase 37 U/L (10-49); Albumin, Serum 2.7 gm/dL (3.4-4.8); Albumin/Globulin Ratio 1.3 (1.2-2.2); Alkaline Phosphatase 71 U/L (46-116); Anion Gap 8 (7-16); Aspartate Amino Transferase 24 U/L (0-34); BUN/Creatinine Ratio 25 Ratio (12-20); Bilirubin,Total 0.9 mg/dL (0.3-1.2); Blood Urea Nitrogen 10 mg/dL (9-23); Calcium 7.8 mg/dL (8.3-10.6); Calcium (Corrected) 8.8 mg/dL (8.5-10.1); Carbon Dioxide 25.4 mMol/L (20.0-31.0); Chloride 98 mMol/L (98-107); Creatinine (Component) 0.4 mg/dL (0.6-1.3); Estimated Creatinine Clearance 180.0 mL/min (>60); Globulin 2.1 gm/dL (2.3-3.5); Glucose 84 mg/dL (74-106); Magnesium 1.6 mg/dL (1.6-2.6); Osmolality,Calculated 260 (275-295); Phosphorous 2.0 mg/dL (2.4-5.1); Potassium 3.6 mMol/L (3.4-5.1); Sodium 131 mMol/L (136-145); Total Protein 4.8 gm/dL (5.7-8.2); eGFR > 60 See Note
--- NOTE | 2024-12-14 07:31 | PD.RESPRO ---
Documentation for date of: 12/14/24 Subjective Subjective Interval history: No acute events overnight DVT Left LE: positive for extensive DVT CT angio Chest: with Multiple bilateral pulmonary artery emboli. Extensive bilateral lung opacity, edema and/or pneumonia, per Neuro: do not anticoag given history intracranial hemorrhage on 10/01/2024 per Cards: reccomend IVC filter, not candidate for thrombectomy Exam Vital Signs Temp Pulse Resp BP Pulse Ox O2 Del Method O2 Flow Rate 97.3 F 90 26 H 118/80 93 L Room Air 2 12/14/24 04:00 12/14/24 04:15 12/14/24 04:00 12/14/24 04:00 12/14/24 04:00 12/14/24 04:00 12/14/24 00:00 Narrative Exam General: A/O x3, no acute distress Lungs: Clear SHIVA to auscultation and percussion, No accessory muscle use. Cardio: Normal S1/S2, regular rhythm, no murmurs, no JVD. Tachycardic. Abdomen: Soft, non-tender, no palpable masses, no guarding or rebound. Less distended than prior Extremities: Symmetrical, no significant deformities, Left leg is has some 2+ edema. non-tender, peripheral pulses presents. Skin: No rashes, no lesions, right gluteal cleft wound, s/p debridement, healing well. Neuro: L sided weakness compared to the R side, No facial asymmetry,able to follow commands Objective Labs 12/15/24 04:59 12/15/24 04:59 Labs: Laboratory Results - last 24 hr 12/09/24 12/14/24 09:04 04:54 WBC 11.0 H RBC 3.69 L Hgb 11.3 L Hct 31.5 L MCV 85 MCH 30.6 MCHC 35.9 RDW Std Deviation 45.2 H Plt Count 114 L Neut % (Auto) 69 Lymph % (Auto) 22 [place] % (Auto) 3 Eos % (Auto) 1 Baso % (Auto) 0 Neut # (Auto) 7.6 Lymph # (Auto) 2.4 [place] # (Auto) 0.4 Eos # (Auto) 0.1 Baso # (Auto) 0.0 Immature Gran # (Auto) 0.45 H Absolute Nucleated RBC 0.00 Immature Gran % 4 H Nucleated RBC % 0 Total Abs Lymphocytes 1769 Sodium 131 L Potassium 3.6 Chloride 98 Carbon Dioxide 25.4 Anion Gap 8 BUN 10 Creatinine 0.4 L Estim Creat Clear Calc 180.0 eGFR > 60 BUN/Creatinine Ratio 25 H Glucose 84 Calculated Osmolality 260 L Calcium 7.8 L Corrected Calcium 8.8 Phosphorus 2.0 L Magnesium 1.6 Total Bilirubin 0.9 AST 24 ALT 37 Alkaline Phosphatase 71 Total Protein 4.8 L Albumin 2.7 L Globulin 2.1 L Albumin/Globulin Ratio 1.3 Imaging and cardiology Echo: Additional comments: Indications: New Afib Normal LV. Estimated EF 55-60%. RV Normal. Trace MR, PI. No Pericardial Effusion. ABG Interpretation ABG results: 12/09/24 11:24 ABG pH 7.44 ABG pCO2 29 L ABG pO2 108 ABG HCO3 20 ABG O2 Saturation 99 H ABG Base Excess -3 Quality Measures Quality Measures sepsis (White count 20.6, lactic 2.3, CRP 3.5, procalcitonin 0.07.) Current suspected stage: sepsis (sepsis improved s/p i and d and iv abx. wbc down from time of admission ) Possible source: skin/soft tissue Blood cultures ordered: yes Antibiotic ordered: Yes Advance care planning discussed with:: patient, spouse and child Assessment & Plan Assessment Current Active Medications: Generic Name Dose Route Start Last Admin Trade Name Freq PRN Reason Stop Dose Admin Acetaminophen 650 mg 12/08/24 00:24 Acetaminophen 325 Mg Tablet PO 01/07/25 00:23 Q6H PRN Fever >100.4 Acetaminophen 650 mg 12/08/24 00:24 12/08/24 18:19 Acetaminophen 325 Mg Tablet PO 01/07/25 00:23 650 mg Q6H PRN Administration PAIN SCALE 1-3 (mild Atenolol 25 mg 12/11/24 12:15 12/13/24 08:53 Atenolol 25 Mg Tablet PO 01/10/25 12:14 25 mg QDAY IZABEL Administration Atorvastatin Calcium 80 mg 12/10/24 21:00 12/14/24 00:11 Atorvastatin Calcium 20 Mg Tablet PO 01/09/25 20:59 80 mg HS IZABEL Administration Dexamethasone 8 mg 12/12/24 09:00 12/13/24 08:52 Dexamethasone 4 Mg Tablet PO 12/15/24 08:59 8 mg QDAY IZABEL Administration Dexamethasone 4 mg 12/16/24 09:00 Dexamethasone 4 Mg Tablet PO 12/19/24 08:59 QDAY IZABEL Dexamethasone 2 mg 12/20/24 09:00 Dexamethasone 1 Mg Tablet PO 12/22/24 08:59 QDAY IZABEL Emtricitabine/Tenofovir 1 tab 12/09/24 09:00 12/13/24 08:52 Emtricitabine 200 Mg/Tenofovir 300 Mg Tab (Non-Form) PO 12/16/24 08:59 1 tab QDAY IZABEL Administration Doxycycline Hyclate 100 mg/ 100 mls @ 100 mls/hr 12/12/24 14:15 12/14/24 00:15 Sodium Chloride IV 12/19/24 14:14 100 mls/hr BID IZABEL Administration Metoprolol Tartrate 5 mg 12/13/24 17:01 12/13/24 17:13 Metoprolol Tartrate Inj 1 Mg/Ml Amp 5 Ml IVP 5 mg Q5MIN PRN Administration TACHYCARDIA Protocol Ondansetron HCl 4 mg 12/08/24 00:24 Ondansetron Inj 2 Mg/Ml Inj 2 Ml IVP 01/07/25 00:23 Q6H PRN NAUSEA OR VOMITING Protocol Plan 69-year-old male with past medical history of hypertension, hyperlipidemia, CAD s/p 2 stents, and recent intracranial hemorrhage on 10/01/2024, admitted for management of right buttock cellulitis, s/p I&D with gen surg, now with wound vac (reqiring changes MW). DVT LLE with extensive dvt, cta chest with bilateral pulm art emboli, Cards and neuro consulted, hold anticoag given recent hx of intracranial bleed, plan for IVC, per cards, not candidate for thrombectomy. #Left LE DVT #BL pulm art emboli pt noted to have some edema of Left leg, fth extensive dvt of left LE, and BL pulm art emboly on cta chest. CARDS and Neuro consulted, appreciate recs (pt not candidate for thrombectomy and hold anticoag given hx of recent intracranial bleed) pt is hemodynamically stable. Dx - IVC filter #Right buttock cellulitis, s/p I&D #Leukocytosis, improving #Lactic acidosis, resolved Patient came in with initial complaints of pain in the right buttocks Abdomen/pelvis CT showed perianal inflammation which extends to the inter gluteal fold with cellulitis primarily the right buttock region, no fluid-filled drainable abscess. In the ED patient received vancomycin and Zosyn x 1 Negative acid was 2.3 and downtrended to 1.3 WBCs 11 Patient did not have any fevers, tachycardia, or any signs of systemic inflammatory response other than WBC elevation. 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 Postcontrast images demonstrate enhancement of this mass, differential would include luxury enhancement in a right frontal infarct versus enhancement in a right frontal tumor Plan Neuro suspected it to be old infarct/bleed, did not recommend transfer - PT Eval reccomend dispo to snf for continued rehab Continue steroid taper as follows: 15 mg Decadron for tomorrow (for a total of 3 days 15 mg decadron equivalent), then 8 mg Decadron starting 12/11/2024 for 3 days, followed by 4 mg daily x3 days and 2 mg daily for 2 days and then stop. Neuro checks q4 hr Aspiration precautions Monitor for any new worsening neurological symptoms SCD's for DVT prophylaxis #Hypotension, resolved #New Onset A-fib RVR, currently rate controlled #Acute encephalopathy likely multifactorial, resolved Refer to previous note and/or 12-09-2024 event note for complete write up regarding rapid response Will follow up the medical records from [facility] Patient continues to be on hydrocortisone 100 mg q6 hr. Neurology recommended Steroid taper to be completed over 6 days: 4 mg daily x3 days and 2 mg daily for 2 days and then stop. Total daily dosage of hydrocortisone converted to Decadron equals 15 mg q daily, which 12/10/2024 will be his 2nd day 15 mg q day equivalent Patient had sinus tachycardia 120 bpm w/o chest pain, SOB, or discomfort Plan: -ECHO: Normal LV. Estimated EF 55-60%. RV Normal. Trace MR, PI. No Pericardial Effusion. -Clinic Scheduler recommended to continue atenolol 25 mg p.o. daily patient's home medication -metoprolol tartrate IVP 5mg PRN for tachycardia >120 bpm #Leukocytosis, improving Likely related to infection. WBC count trending down. Continue to trend. #Normocytic Anemia #Chronic Thrombocytopenia -Anemia Likely due to dilutional due to IV fluids No signs of overt bleeding. PRBC if hgb drops below 7. #NSTEMI Type II - demand ischemia Mildly elevated troponin, resolved No signs of chest pain No acute st changes on ecg Chronic disease: #Hx of hypertension #Hx of CAD s/p stents #Hx of ICH Blood pressure has been stable since came into the ED. Patient's home medication includes atenolol 25 mg q daily and atorvastatin 40 mg q daily. Blood pressure has been well controlled, will add anti-hypertensives as necessary. Disposition: Patient admitted to med surg for R buttock cellulitis, wound vac for buttock, and pending Left leg eval with US for possible DVT Diet: Cardiac GI prophylaxis: not indicated DVT prophylaxis: SCDs due to recent ICH Code: Full Case discussed with my attending Dr.Lau Keisha Zambrano MD PGY-1 Attending Provider Attestation/Addendum I, Radha Zacarias, DO, attest that I was physically present for the buitrago portions of the service and evaluated the patient with the resident and I reviewed and discussed the case with the resident and agree with the resident's findings and plans of care as documented above Patient seen and evaluated this AM. Patient had an episode of tachycardia which improved with IV lopressor x1. Patient was reportedly mildly hypoxic, improved with 2L/NC. He continues to have some edema in his LLE. Venous doppler was done and showed extensive acute DVT. Patient is not a candidate for thrombectomy or anticoagulation due to recent brain bleed in September. Confirmed with neurology. CTA was done showing multiple pulmonary emboli with extensive b/l lung opacity. Case discussed with cardiology who reviewed CTA and confirmed no right ventricular strain on echo from this morning. Patient is hemodynamically stable otherwise. Plan to place IVC filter in AM. Patient will f/u closely with cardiology and can be started on anticoagulation in following months if patient remains stable. Patient updated regarding imaging findings and agreeable to plan.
[2024-12-14] MEDS: Magnesium Sulfate 2 GM Ivpb 2 GM/50 ML BAG IV (10:14)
[2024-12-14] MEDS: NAPH,KPH MBDB 1 PACKET (1.5 GM) PO ×2 (10:14→20:37)
[2024-12-14] MEDS: EMTRICITABINE 200 MG/TENOFOVIR 300 MG TAB (NON-FORM) 1 TAB PO (10:18)
--- NOTE | 2024-12-14 10:36 | ECHO_ITS ---
Transthoracic Echo Report Ht (in): 70 Wt (lb): 189 Exam Location: Echo Lab Status: Inpatient Reverse Engineer: Keesha Martinez Indications: Procedure Performed: BP: 122 / 89 HR: 114 Technical Quality: Adequate MEASUREMENTS (Male / Female) Normal Values 2D ECHO LV Diastolic Diameter PLAX 4.7 cm 4.2 - 5.9 / 3.9 - 5.3 cm LV Systolic Diameter PLAX 2.7 cm IVS Diastolic Thickness 1.3 cm 0.6 - 1.0 / 0.6 - 0.9 cm LVPW Diastolic Thickness 1.1 cm 0.6 - 1.0 / 0.6 - 0.9 cm LV Relative Wall Thickness 0.5 LVOT Diameter 2.0 cm LA Volume Index 30.7 cm?/m? 16 - 28 cm?/m? Ascending Aorta Diameter 4.0 cm M-MODE AV Cusp Separation MM 2.1 cm DOPPLER AV Peak Velocity 89.6 cm/s AV Peak Gradient 3.2 mmHg LVOT Peak Velocity 80.0 cm/s LVOT Peak Gradient 2.6 mmHg AV Area Cont Eq pk 2.8 cm? MV Area PHT 2.7 cm? Mitral E Point Velocity 54.8 cm/s Mitral A Point Velocity 54.3 cm/s Mitral E to A Ratio 1.0 LV E' Lateral Velocity 9.3 cm/s Mitral E to LV E' Lateral Ratio 5.9 LV E' Septal Velocity 4.9 cm/s Mitral E to LV E' Septal Ratio 11.2 PV Peak Velocity 122.0 cm/s PV Peak Gradient 6.0 mmHg FINDINGS Left Ventricle The left ventricular cavity size is normal. The left ventricular wall thickness is moderately increased. The left ventricular ejection fraction is normal, estimated at 55-60%. Normal diastolic function. Right Ventricle The right ventricle is normal in size and systolic function. The estimated right ventricular systolic pressure can not be determined due to innadequate tricuspid signal. Left Atrium The left atrium is normal by two-dimensional, color flow and Doppler imaging with no structural abnormalities, no thrombus formation present. Right Atrium The right atrium is normal by two-dimensional imaging, color flow and Doppler imaging with no structural abnormalities, no thrombus formation present. Atrial Septum The interatrial septum appears normal with no evidence of a shunt. Aorta The aorta is normal by two-dimensional, color flow and Doppler interrogation. Mitral Valve The mitral valve is normal by two-dimensional, color flow and Doppler interrogation. There is trace mitral regurgitation. Aortic Valve Mild aortic valve sclerosis without stenosis. Trace aortic regurgitation. Tricuspid Valve The tricuspid valve is normal by two-dimensional, color flow and Doppler interrogation. There is no significant tricuspid valve regurgitation. Pulmonic Valve The pulmonic valve is not well visualized. There is trace pulmonic regurgitation. Vessels The pulmonary artery appears normal. The inferior vena cava pulmonary and hepatic veins appear normal. Pericardium The pericardium is normal by two-dimensional imaging. There is no significant pericardial effusion. CONCLUSIONS Indications: New Afib Normal LV. Estimated EF 55-60%. RV Normal. Trace MR, PI. No Pericardial Effusion. Arianna Heaton (Electronically Signed) Final Date: 14 December 2024 13:48
--- NOTE | 2024-12-14 12:30 | PD.SURPROG ---
Documentation for date of: 12/14/24 Subjective Subjective Brief History: 69M with HTN, HLD, CAD s/p stenting, CVA 09/2024 who presented with pain at the gluteus. Pt denies any pain at the moment and is unsure if he has had any drainage. Workup shows WBC 20 which downtrended to 17, and CT showed perianal inflammation extending to the gluteal fold with cellulitis primarily in the right buttock region but no fluid filled drainable abscess PMH: HTN, HLD, CAD, CVA with left sided weakness PSHx: Cardiac stenting, appendectomy Meds: includes ASA Allergies: NKDA Narrative: Denies any pain to the R gluteus, has not noticed any drainage Exam Vital Signs Temp Pulse Resp BP Pulse Ox O2 Del Method O2 Flow Rate 97.8 F 104 H 18 122/89 H 96 Nasal Cannula 2 12/14/24 08:00 12/14/24 08:20 12/14/24 08:20 12/14/24 08:00 12/14/24 08:20 12/14/24 08:00 12/14/24 08:20 Constitutional Constitutional: no acute distress Routine Respiratory Exam Respiratory: Present no resp distress Routine Exam Comments: right gluteal wound with no surrounding erythema, beefy red granulation tissue at base, no pus or bleeding Assessment & Plan Plan 69M with HTN, HLD, CAD s/p stenting, CVA 09/2024 who presented with R gluteal abscess s/p I&D 12/10, recovering well overall. As the wound bed appears healthy I opted to place a wound vac today to promote healing Wound vac change MWTate OK for dc from my standpoint PROCEDURES: Procedures Incision and drainage, excisional debridement
--- NOTE | 2024-12-14 13:45 | XR_ITS ---
Examination: Duplex scan of the lower extremity, unilateral left Date and time of exam: December 14, 2024 1438 hours INDICATIONS: Left leg swelling beginning 3 days ago Technique: Duplex scan of the extremity veins using B-mode/grayscale imaging and Doppler spectral analysis and color flow Attention is directed to internal echogenicity, compression and augmentation involving these veins, color flow assessment, spectral analysis Findings: Positive for nonocclusive thrombus involving the left common femoral left superficial femoral, popliteal, peroneal and posterior tibial veins IMPRESSION: Extensive acute deep vein thrombus
--- NOTE | 2024-12-14 15:01 | PD.RESDS ---
Planned Discharge Date 12/14/24 DS: Providers Provider Date of admission: 12/09/24 14:31 Primary care physician: Physician No Primary/Family Admitting Provider: Familia Kam MD Attending Provider on Admission: Radha Zacarias DO Consults: 12/08/24 00:33 Consult to General Surgery Routine Comment: Consulting Provider: Zainab Bardales 12/08/24 00:34 Referral Wound Care Routine Comment: 12/09/24 12:57 Consult to Neurology / Tele-Neurology Urgent Comment: Consulting Provider: Juaquin Puga 12/09/24 14:37 Consult to Cardiology Stat Comment: Consulting Provider: Suad Hunt 12/09/24 14:59 Referral Speech Therapy Routine Comment: 12/13/24 18:14 Referral Physical Therapy Routine Comment: Physician Instructions: Attending Provider on DC: Dr. Zacarias Discharging Provider: Keisha Zambrano, RESIDENT DS: Diagnosis Problem List Completed Was Problem List Reviewed/Reconciled?: Yes Hospital Course Hospital Course Hospital course: Mr. Akhtar is a 69 yo gentleman with a history of hypertension, hyperlipidemia, CAD s/p 2 stents, and recent intracranial hemorrhage on 10/01/2024, admitted for management of right buttock cellulitis, in the ED patient received vancomycin and Zosyn x 1, s/p I&D with gen surg, with wound vac per gen surg (requiring changes MWF). Pt was initially treated with Zosyn and then transitioned to doxy 100 mg BID. For his Hx or intracranial hemorrage, pt was started on a steroid taper (15 mg Decadron 3 days , then 8 mg Decadron for 3 days, followed by 4 mg daily x3 days and 2 mg daily for 2 days and then stop). While inpatient pt was diagnosed with new afib with rvr, ECHO (nl LV, nl EF), Cardiology consulted, recommended continuing home atenalol 25 mg bid. 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, September 2024 #Hypotension, resolved #New Onset A-fib RVR, currently rate controlled #Acute encephalopathy likely multifactorial, resolved #Leukocytosis, improving #Normocytic Anemia #Chronic Thrombocytopenia #NSTEMI Type II - demand ischemia Chronic disease: #Hx of hypertension #Hx of CAD s/p stents #Hx of ICH Time Spent with Patient Time attestation: Total time spent providing and/or coordinating discharge services: Exam Vital Signs Temp Pulse Resp BP Pulse Ox O2 Del Method O2 Flow Rate 97.0 F 65 18 121/79 94 L Room Air 2 12/14/24 12:00 12/14/24 12:12/14/24 12:12/14/24 12:12/14/24 12:12/14/24 12:00 12/14/24 08:20 Discharge Plan Plan Care Plan Goals: 1) wound care: Right buttocks abscess Wound Vac: irrigate with NS, pat dry, fill with black foam. Skin prep to wound edges. Bridge to lateral thigh. Continuous suction at 125mmgh continuous suction. Change M/W/F. 2) Follow up with Dr. Bardales as needed Prescriptions/Referrals Prescriptions/Med Rec: No Action atorvastatin 40 mg tablet 40 mg PO DAILY atenolol 25 mg tablet 25 mg PO Q24H dexamethasone 4 mg tablet 4 mg PO BID Patient Comments: TAKE 1 TABLET BY MOUTH TWICE A DAY hydralazine 10 mg tablet 10 mg PO .every 6 magnesium aspart,citrate,oxide 400 mg magnesium capsule 400 mg PO DAILY magnesium hydroxide [Milk of Magnesia] 400 mg/5 mL suspension 30 ml PO PRN PRN (Reason: constipation) emtricitabine-tenofovir (TDF) [Truvada] 200-300 mg tablet 1 tab PO Q24H melatonin 3 mg tablet 3 mg PO HS diphenhydramine-acetaminophen [Tylenol PM Extra Strength] 25-500 mg tablet 1 tab PO HS PRN (Reason: sleep) calcium carbonate [Antacid (calcium carbonate)] 200 mg calcium (500 mg) tablet,chewable 200 mg PO QDAY sennosides [senna] 8.6 mg tablet 8.6 mg PO BID acetaminophen [Aminofen] 325 mg tablet 650 mg PO Q6H PRN (Reason: pain) ondansetron 4 mg tablet,disintegrating 4 mg PO QDAY bisacodyl [Dulcolax (bisacodyl)] 10 mg suppository 10 mg NV QDAY PRN (Reason: constipation) Fleet Enema Extra 19-7 gram/197 mL enema 118 ml NV QDAY PRN (Reason: constipation) acetaminophen [Acetaminophen Extra Strength] 500 mg tablet 500 mg PO Q8HR PRN (Reason: pain) lidocaine 5 % adhesive patch,medicated See Rx Instructions .ROUTE .COMPLEX Rx Instructions: leave on most painful area for up to 12 hrs calcium carbonate [Calcium 500] 500 mg calcium (1,250 mg) tablet,chewable 500 mg PO QDAY calcium carbonate 500 mg calcium (1,250 mg) tablet,chewable 500 mg PO QID ipratropium-albuterol 0.5 mg-3 mg(2.5 mg base)/3 mL solution for nebulization 3 ml inhalation Q4H PRN (Reason: shortness of breath) Referrals: No Primary/Family,Physician [Primary Care Provider] - Patient/Caregiver Discharge Instructions Print Language: Swiss
--- NOTE | 2024-12-14 15:31 | PC.NURSE ---
Plan of care discussed with Dr. Zcaarias. Hold Lovenox. Dr. Zacarias will review chart and put in orders. --JA
--- NOTE | 2024-12-14 15:33 | XR_ITS ---
Examination: CTA chest with intravenous contrast 2-D reconstructions 3-D reconstructions, vascular Date and time of exam: December, 1642 hours INDICATIONS: Chest pain shortness of breath today, positive for nonocclusive thrombus left lower extremity venous Doppler study today CTDI: vol (mGy) 25.1 DLP: (mGycm) 145 Technique: Multiple axial sections of the thorax have been obtained. 3 mm slice thickness, from below the hemidiaphragms to above the apices of the lungs. Mediastinal and lung density settings have been obtained. 2-D sagittal and coronal reconstructions. 3-D angiographic renderings, 3-D volume renderings, 3D post processing, vascular maximum intensity projections obtained. Contrast administered is 100 cc Isovue 370. Low dose protocols were performed. One or more of the following dose reduction techniques were used; automated exposure control, adjustment of the mA and/or KV according to patient size, use of iterative reconstruction technique. Findings: No thoracic aortic aneurysm dilatation Multiple bilateral pulmonary artery filling defects including distal right and left main pulmonary arteries, multiple lower lobe and upper lobe branches Right ventricle is not enlarged Extensive bilateral lung opacity, edema and/or pneumonia Contracted gallbladder No pancreatic mass IMPRESSION: Multiple bilateral pulmonary artery emboli Extensive bilateral lung opacity, edema and/or pneumonia, clinical correlation advised
--- NOTE | 2024-12-14 15:39 | PC.SS ---
SS follow up note; Pending Surgery consult. Patient will need wound Vac, SS updated Liliane From [facility] she verbalized understanding and will order wound vac for patient.
[2024-12-14 17:11] LABS: INR 1.1 (0.9-1.3); Partial Thromboplastin Time 21.9 Seconds (22.0-36.0); Prothrombin Time 12.0 Seconds (9.0-12.2)
--- NOTE | 2024-12-14 17:37 | ESCONSULT_ITS ---
<Statement entered by Suad Hunt MD - 12/16/24 00:25> I personally evaluated the patient examined who was admitted to the hospital multiple problems recent history of trauma related intracerebral cerebral hemorrhage less than a month ago now has DVT of the left lower extremity patient cannot have anticoagulation with heparin cannot have any thrombectomy. 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 There is absolute contraindication for anticoagulation because intracerebral hemorrhage hence we will only recommend IVC filter placement for prevention of further embolization and after 2 to 3 months might consider anticoagulation if there is no contraindication once he is cleared by neurologist. Agree with treatment plan recommendation as documented by PGY 2 Dr. Shelton HPI Data of Consult Requesting Physician: Radha Zacarias DO Admitting Provider: Familia Kam MD Attending Provider: Radha Zacarias DO Primary Care Provider: Physician No Primary/Family Consult Narrative History of present illness: Patient is a poor historian, mildly irritated and sister is at the bedside who gives most of the history A 69-year-old male with significant past medical history of hypertension, hyperlipidemia, CAD status post 2 stents in 2003, recent ICH in 09/2024 currently residing in nursing facility was brought to the hospital with chief complaints of worsening of his ulcer and swelling on his buttocks since 1 week. Denies fever, nausea, vomiting, diarrhea, bloody stools, or any other complaints. Patient was supposed to get incision and drainage for decompression as well as possible excisional debridement of abscess and cellulitis at the gluteal region. Patient was kept on n.p.o. since last night. Around 6 AM per sister, patient is at his normal baseline, 30 minutes later she noticed that he was a bit zoned out and not being his normal self. Later patient was found to have tachycardia with heart rate around 150 with low blood pressures for which patient was given 2.5 L bolus of fluids, IV push of diltiazem and a dose of digoxin 0.25 Mg. Later ICU was consulted in view of blood pressure on lower side and they recommended to give 1 more liter of bolus which was given and patient blood pressure improved. Patient was upgraded to telemetry for further management. Telemetry neuro is consulted and CT head was done which did not show any significant abnormality. Patient became his normal self around 12 PM, per his sister. Patient did not remember any of the events from this morning Cardiology is consulted in view of tachyarrhythmia on 12/09/2024. Patient endorsed that he follows with Dr. Hunt in view of CAD s/p stenting done in 2003. Recent visit is in November 2024 which is a regular follow-up visit and endorsed that there is no complaints. No further episodes of atrial fibrillation are found later. So signed off from patient's care. Again reconsulted on 12/14/2024 in view of acute pulmonary thromboembolism from left lower extremity DVT in the setting of immobilisation. Past medical history: Hypertension, hyperlipidemia, CAD Past surgical history: PCI in 2003 cc:: cc: Radha Zacarias DO Review of Systems Review of Systems Systems Reviewed: All systems reviewed, normal except as documented Past Medical History Past Medical History CARDIAC: Positive Cardiac Disorders, Myocardial Infarction and Hypertension; Negative Congestive Heart Failure RESPIRATORY: Negative Chronic Obstructive Pulmonary Disease (COPD) GENITOURINARY: Negative Renal Disease ENDOCRINE: Negative Diabetes Mellitus Type 1 or Diabetes Mellitus Type 2 OTHER HISTORY: Negative Autoimmune Disease Family History FAMILY HISTORY: Negative Family Psychiatric Problems, Family Respiratory Disorders, Family Cardiac Disorders, Family Gastrointestinal Problems, Family Cancer, Family Surgery or Family Anesthesia Reaction Social History SMOKING STATUS: Never smoker Exam Vital Signs Temp Pulse Resp BP Pulse Ox O2 Del Method O2 Flow Rate 97.9 F 60 16 106/70 97 Nasal Cannula 2 12/15/24 11:47 12/15/24 14:42 12/15/24 11:47 12/15/24 11:47 12/15/24 11:47 12/15/24 11:47 12/15/24 11:47 Narrative Exam General: Awake. HEENT: Normocephalic, atraumatic, mucous membranes moist. Heart: Regular rhythm, no murmurs. Sinus tachycardia Lungs: Clear to auscultation with no wheezing or crackles. Abdomen: Soft, nondistended, nontender, positive bowel sounds. ?No guarding or rebound tenderness. Neurologic: Alert and oriented x3, weakness noted in the left half of the body from residual stroke 2/5 in the lower extremities Extremities: Noted edema on Left lower extremity without any tenderness. Skin: noted gluteal cellulitis on the picture from chart review Results Labs 12/15/24 04:59 12/15/24 04:59 Labs: Short CBC 12/15/24 Range/Units 04:59 WBC 14.3 H (3.8-10.6) Thou/mm3 Hgb 12.0 L (13.5-16.0) g/dL Hct 33.8 L (41.0-53.0) % Plt Count 149 D (140-440) Thou/mm3 [facility] 12/15/24 04:59 Sodium 136 Potassium 4.0 Chloride 102 Carbon Dioxide 26.4 BUN 12 Creatinine 0.5 L Glucose 91 Calcium 8.4 ABG Interpretation ABG results: 12/09/24 11:24 ABG pH 7.44 ABG pCO2 29 L ABG pO2 108 ABG HCO3 20 ABG O2 Saturation 99 H ABG Base Excess -3 Quality Measures Quality Measures sepsis (White count 20.6, lactic 2.3, CRP 3.5, procalcitonin 0.07.) Current suspected stage: ruled out Possible source: skin/soft tissue Blood cultures ordered: yes Antibiotic ordered: Yes Advance care planning discussed with:: patient Medications Home Medications and Allergies Home Medications ?Medication ?Instructions ?Recorded ?Confirmed ?Type acetaminophen 325 mg tablet 650 mg PO Q6H PRN pain 07/0412/08/24 History (Aminofen) acetaminophen 500 mg tablet 500 mg PO Q8HR PRN pain 12/08/24 History (Acetaminophen Extra Strength) atenolol 25 mg tablet 25 mg PO Q24H 12/08/2412/08 History atorvastatin 40 mg tablet 40 mg PO DAILY 12/08/24 0707/04 History bisacodyl 10 mg rectal suppository 10 mg DC QDAY PRN c onstipation 12/08/24 12/08/24 History (Dulcolax (bisacodyl)) calcium carbonate 500 mg PO QID 12/08/2412/08 History calcium carbonate (Antacid 200 mg PO QDAY 12/08/2407/04 History (calcium carbonate)) calcium carbonate (Calcium 500) 500 mg PO QDAY 5 12/08/24 History diphenhydramine 25 1 tab PO HS PRN sleep 12/08/24 History mg-acetaminophen 500 mg tablet (Tylenol PM Extra Strength) emtricitabine 200 mg-tenofovir 1 tab PO Q24H 12/08/24 12/08/24 History disoproxil fumarate 300 mg tablet (Truvada) hydralazine 10 mg tablet 10 mg PO .every 6 12/08/24 0 12/08/24 History ipratropium 0.5 mg-albuterol 3 mg 3 ml inhalation Q4H PRN shortness 12/08/24 12/08/24 History (2.5 mg base)/3 mL nebulization of breath soln lidocaine 5 % topical patch See Rx Instructions topica l 12/08/24 12/08/24 History .COMPLEX magnesium aspart,citrate,oxide 400 mg PO DAILY 5 12/08/24 History magnesium hydroxide 400 mg/5 mL 30 ml PO PRN PRN const ipation 12/08/24 12/08/24 History oral suspension (Milk of Magnesia) melatonin 3 mg tablet 3 mg PO HS 12/08/24 12/08/24 History ondansetron 4 mg disintegrating 4 mg PO QDAY 12/08/24 12/08/24 History tablet sennosides 8.6 mg tablet (senna) 8.6 mg PO BID 5 12/08/24 History sodium phosphates 19 gram-7 118 ml DC QDAY PRN constip ation 12/08/24 12/08/24 History gram/197 mL enema (Fleet Enema Extra) Allergies Allergy/AdvReac Type Severity Reaction Status Date / Time apple Allergy Intermediate Hives Verified 12/08/24 13:05 bergman Allergy Intermediate Hives Verified 12/08/24 13:05 melon Allergy Intermediate Hives Verified 12/08/24 13:05 peach Allergy Intermediate Hives Verified 12/08/24 13:05 coconut Allergy Verified 12/08/24 13:05 nectarine Allergy Hives Verified 12/08/24 13:05 plum Allergy Verified 12/08/24 13:05 Visit Medications Acetaminophen (Acetaminophen 325 Mg Tablet) 650 mg PO Q6H PRN PRN Reason: Fever >100.4 Stop: 01/07/25 00:23 Acetaminophen (Acetaminophen 325 Mg Tablet) 650 mg PO Q6H PRN PRN Reason: PAIN SCALE 1-3 (mild Stop: 01/07/25 00:23 Last Admin: 12/08/24 18:19 Dose: 650 mg Atenolol (Atenolol 25 Mg Tablet) 25 mg PO QDAY [facility] Stop: 01/10/25 12:14 Last Admin: 12/15/24 09:12 Dose: 25 mg Atorvastatin Calcium (Atorvastatin Calcium 20 Mg Tablet) 80 mg PO HS [facility] Stop: 01/09/25 20:59 Last Admin: 12/14/24 20:37 Dose: 80 mg Dexamethasone (Dexamethasone 4 Mg Tablet) 4 mg PO QDAY [facility]; Protocol Stop: 12/16/24 10:00 Dexamethasone (Dexamethasone 1 Mg Tablet) 2 mg PO QDAY [facility] Stop: 12/18/24 09:00 Emtricitabine/Tenofovir (Emtricitabine 200 Mg/Tenofovir 300 Mg Tab (Non-Form)) 1 tab PO QDAY [facility] Stop: 12/16/24 08:59 Last Admin: 12/15/24 09:12 Dose: 1 tab Doxycycline Hyclate 100 mg/ (Sodium Chloride) 100 mls @ 100 mls/hr IV BID [facility] Stop: 12/19/24 14:14 Last Admin: 12/15/24 09:12 Dose: 100 mls/hr Metoprolol Tartrate (Metoprolol Tartrate Inj 1 Mg/Ml Amp 5 Ml) 5 mg IVP Q5MIN PRN; Protocol PRN Reason: TACHYCARDIA Last Admin: 12/13/24 17:13 Dose: 5 mg Ondansetron HCl (Ondansetron Inj 2 Mg/Ml Inj 2 Ml) 4 mg IVP Q6H PRN; Protocol PRN Reason: NAUSEA OR VOMITING Stop: 01/07/25 00:23 Potassium Phos/Sodium Phos (Naph,[facility] Mbdb 1 Packet (1.5 Gm)) 1 packet PO BID [facility] Stop: 01/13/25 08:59 Last Admin: 12/15/24 09:11 Dose: 1 packet Discontinued Medications Hydrocodone Bitart/Acetaminophen (Hydrocodone/Apap 5/325 Tablet) 1 tab PO Q4HR PRN PRN Reason: PAIN SCALE 4-6 (Moderate Stop: 12/13/24 00:23 Dexamethasone (Dexamethasone 4 Mg Tablet) 8 mg PO QDAY [facility] Stop: 12/14/24 08:59 Dexamethasone (Dexamethasone 4 Mg Tablet) 4 mg PO QDAY [facility] Stop: 12/17/24 08:59 Dexamethasone (Dexamethasone 1 Mg Tablet) 2 mg PO QDAY [facility] Stop: 12/20/24 08:59 Dexamethasone (Dexamethasone 4 Mg Tablet) 8 mg PO QDAY [facility] Stop: 12/15/24 08:59 Last Admin: 12/12/24 08:50 Dose: Not Given Dexamethasone (Dexamethasone 4 Mg Tablet) 4 mg PO QDAY [facility] Stop: 12/18/24 08:59 Dexamethasone 12 mg/ (Dexamethasone 3 mg) 15 mg PO QDAY [facility] Stop: 12/12/24 08:59 Last Admin: 12/11/24 09:17 Dose: 15 mg Dexamethasone (Dexamethasone 4 Mg Tablet) 8 mg PO QDAY [facility] Stop: 12/15/24 08:59 Last Admin: 12/14/24 08:00 Dose: 8 mg Dexamethasone (Dexamethasone 4 Mg Tablet) 8 mg PO DAILY [facility] Stop: 12/15/24 08:59 Last Admin: 12/12/24 09:47 Dose: Not Given Dexamethasone (Dexamethasone 4 Mg Tablet) 4 mg PO QDAY [facility] Stop: 12/19/24 08:59 Dexamethasone (Dexamethasone 1 Mg Tablet) 2 mg PO QDAY [facility] Stop: 12/22/24 08:59 Digoxin (Digoxin 0.125 Mg Tablet) 0.125 mg PO X1 ONE Stop: 12/09/24 12:35 Last Admin: 12/09/24 12:39 Dose: Not Given Digoxin (Digoxin 0.125 Mg Tablet) 0.25 mg PO X1 ONE Stop: 12/09/24 12:38 Last Admin: 12/09/24 13:11 Dose: 0.25 mg Diltiazem HCl (Diltiazem Inj 5 Mg/Ml Vial 5 Ml) 10 mg IV X1 ONE Stop: 12/09/24 08:28 Last Admin: 12/09/24 08:40 Dose: 10 mg Diphenhydramine HCl (Diphenhydramine 25 Mg Capsule) 25 mg PO X1 ONE Stop: 12/11/24 11:29 Last Admin: 12/11/24 12:09 Dose: 25 mg Enoxaparin Sodium (Enoxaparin Sod Inj 80 Mg/0.8 Ml Syringe) 80 mg SC BID [facility] Stop: 12/28/24 20:59 Fentanyl Citrate (Fentanyl Cit Inj 50 Mcg/Ml Amp 2ml) 25 mcg IVP Q5M PRN; Protocol PRN Reason: PAIN SCALE 7-10 (Severe Stop: 12/10/24 13:14 Fentanyl Citrate (Fentanyl Cit Inj 50 Mcg/Ml Amp 2ml) 25 mcg IVP Q5M PRN; Protocol PRN Reason: PAIN SCALE 4-6 (Moderate Stop: 12/10/24 13:14 Fentanyl Citrate (Fentanyl Cit Inj 50 Mcg/Ml Amp 2ml) 25 mcg IVP Q5M PRN; Protocol PRN Reason: PAIN SCALE 1-3 (mild Stop: 12/10/24 13:14 Fentanyl Citrate (Fentanyl Cit Inj 50 Mcg/Ml Amp 2ml) 50 mcg IVP X1 ONE Stop: 12/15/24 10:36 Last Admin: 12/15/24 10:36 Dose: 50 mcg Hydrocortisone Sodium Succinate (Hydrocortisone Sod Succ Inj 100 Mg Vial) 100 mg IV Q6HR IZABEL Stop: 12/10/24 08:59 Last Admin: 12/10/24 12:55 Dose: 100 mg Vancomycin/Sodium Chloride (Vancomycin/Ns 1 Gm Ivpb) 200 mls @ 120 mls/hr IV X1 ONE Stop: 12/07/24 18:08 Last Admin: 12/07/24 18:32 Dose: 120 mls/hr Piperacillin/Tazobactam/Dextrose (Zosyn) 3.375 gm in 50 mls @ 100 mls/hr IV X1 ONE Stop: 12/07/24 16:59 Last Infusion: 12/07/24 17:30 Dose: Infused Sodium Chloride (Ns) 1,000 mls @ 999 mls/hr IV .Q1H1M ONE Stop: 12/08/24 01:15 Last Admin: 12/08/24 02:30 Dose: 999 mls/hr Sodium Chloride (Ns) 1,000 mls @ 75 mls/hr IV .[id number] IZABEL Stop: 12/08/24 13:49 Last Admin: 12/08/24 04:38 Dose: 75 mls/hr Piperacillin/Tazobactam/Dextrose (Zosyn) 3.375 gm in 50 mls @ 100 mls/hr IV Q8HR [facility] Stop: 12/15/24 00:31 Last Admin: 12/12/24 14:19 Dose: Not Given Vancomycin/Sodium Chloride (Vancomycin/Ns 1 Gm Ivpb) 200 mls @ 120 mls/hr IV X1 ONE Stop: 12/08/24 02:24 Last Admin: 12/08/24 02:37 Dose: Not Given Vancomycin HCl (Vancomycin/Water 1250 Mg Ivpb) 250 mls @ 120 mls/hr IV Q12H [facility]; Protocol Stop: 12/15/24 09:59 Last Admin: 12/10/24 22:10 Dose: 120 mls/hr Sodium Chloride (Ns) 500 mls @ 999 mls/hr IV .Q31M ONE Stop: 12/09/24 08:08 Last Admin: 12/09/24 08:30 Dose: 999 mls/hr Magnesium Sulfate (Magnesium Sulfate Ivpb) 4 gm in 50 mls @ 12.5 mls/hr IV X1 ONE Stop: 12/09/24 12:27 Last Admin: 12/09/24 08:41 Dose: 12.5 mls/hr Sodium Chloride (Ns) 500 mls @ 999 mls/hr IV .Q31M ONE Stop: 12/09/24 09:28 Last Admin: 12/09/24 09:24 Dose: 999 mls/hr Lactated Ringer's (Lactated Ringers) 1,000 mls @ 999 mls/hr IV .Q1H1M ONE Stop: 12/09/24 13:28 Last Admin: 12/09/24 12:33 Dose: 999 mls/hr Lactated Ringer's (Lactated Ringers) 500 mls @ 999 mls/hr IV .Q31M ONE Stop: 12/13/24 16:51 Last Admin: 12/13/24 16:26 Dose: 999 mls/hr Lactated Ringer's (Lactated Ringers) 1,000 mls @ 85 mls/hr IV .[id number] [facility] Stop: 12/14/24 05:58 Last Admin: 12/13/24 18:20 Dose: 85 mls/hr Magnesium Sulfate (Magnesium Sulfate Ivpb) 2 gm in 50 mls @ 25 mls/hr IV X1 ONE Stop: 12/14/24 10:44 Last Admin: 12/14/24 10:14 Dose: 25 mls/hr Magnesium Sulfate (Magnesium Sulfate Ivpb) 2 gm in 50 mls @ 25 mls/hr IV X1 ONE Stop: 12/15/24 10:01 Last Admin: 12/15/24 11:53 Dose: 25 mls/hr Lidocaine HCl (Lidocaine Hcl 1% 20 Ml Vial) 10 ml INFL X1 ONE Stop: 12/07/24 16:24 Last Admin: 12/07/24 16:56 Dose: 10 ml Lidocaine HCl (Lidocaine Inj Pf 1% 30 Ml Vial) 6 ml EPID X1 ONE Stop: 12/15/24 10:36 Last Admin: 12/15/24 10:36 Dose: 6 ml Ondansetron HCl (Ondansetron Inj 2 Mg/Ml Inj 2 Ml) 4 mg IVP X1 ONE Stop: 12/10/24 11:14 Pharmacy Consult (Vancomycin Pharmacy To Dose 1 Each Each) 1 each IV QDAY PRN PRN Reason: RX Stop: 01/07/25 08:59 Potassium Chloride (Potassium Chloride 20 Meq Tabcr) 40 meq PO X1 ONE Stop: 12/10/24 13:42 Last Admin: 12/10/24 14:15 Dose: 40 meq Potassium Chloride (Potassium Chloride 20 Meq Tabcr) 20 meq PO X1 ONE Stop: 12/14/24 08:44 Last Admin: 12/14/24 10:14 Dose: 20 meq Potassium Phos/Sodium Phos (Naph,Kph Mbdb 1 Packet (1.5 Gm)) 2 packet PO X1 ONE Stop: 12/11/24 08:42 Last Admin: 12/11/24 09:18 Dose: 2 packet Potassium Phos/Sodium Phos (Naph,Kph Mbdb 1 Packet (1.5 Gm)) 1 packet PO X1 ONE Stop: 12/13/24 08:23 Last Admin: 12/13/24 08:52 Dose: 1 packet Assessment & Plan Plan A 69-year-old male with significant past medical history of hypertension, hyperlipidemia, CAD status post 2 stents in 2003, recent ICH in 09/2024 currently residing in nursing facility was brought to the hospital with chief complaints of worsening of his ulcer and swelling on his buttocks since 1 week and cardiology is consulted for paroxysmal atrial fibrillation and Acute pulmonary thromboembolism # Acute pulmonary thromboembolism - Venous Doppler done on 12/14/2024 showed acute DVT in left lower extremity - CT angio chest showed multiple bilateral pulmonary emboli - Echocardiogram showed Normal LV. Estimated EF 55-60%. RV Normal.Trace MR, PI. No Pericardial Effusion. - Cardiology is consulted in view of thromboembolism - Patient cannot be started on anticoagulation in view of recent hemorrhagic stroke 1 month ago - Could not undergo mechanical thrombectomy as it looks like submassive pulmonary thromboembolism and also patient cannot receive anticoagulation which should be given during the mechanical thrombectomy - Echocardiogram done did not show any RV strain Plan - As patient cannot undergo anticoagulation, recommended to place IVC filter IR guided as of now # Paroxysmal atrial fibrillation ---> reverted to normal sinus rhythm - Patient is admitted to the hospital for gluteal cellulitis and abscess - Patient was supposed to go to surgery on 12/09/2024, but developed tachycardia with heart rate around 150 and mild altered sensorium before going to the surgery - Telemetry strips showed atrial fibrillation with rapid ventricular rate - Patient received 3.5 L of fluid in total, 1 diltiazem IV push and 1 dose of digoxin 0.25 mg - Patient reverted to normal sinus rhythm after fluid resuscitation and medications - Cardiology is consulted as patient had previous history of CAD and tachyarrhythmia - [id number] is 5, has bled score is 4 Plan - Recommended to continue telemetry monitoring - [id number] is high, no need of anticoagulation as of now as the paroxysmal A-fib seems to be occurring in the setting of ongoing abscess. - Keep magnesium greater than 2 and potassium greater than 4 # History of CAD s/p stenting - Patient had extensive family history of CAD in his family - Patient underwent 2 stents placement in 2003 Plan - Recommend to continue aspirin and statin # History of hypertension - Patient's blood pressure is within normal limits during the hospital stay without any medications Plan - Recommended to continue to monitor blood pressures and start medications as needed Patient plan of care was discussed with Ad Copy Writer Dr. Gilbert Wang, PGY2
--- NOTE | 2024-12-14 18:21 | PD.RESPRO ---
Documentation for date of: 12/14/24 Subjective Subjective Interval history: Patient seen at bedside, no new symptoms. Working on sitting on edge of bed with PT. Exam Vital Signs Temp Pulse Resp BP Pulse Ox O2 Del Method O2 Flow Rate 97.0 F 73 18 121/79 94 L Room Air 2 12/14/24 12:00 12/14/24 16:00 12/14/24 12:00 12/14/24 12:00 12/14/24 12:00 12/14/24 12:00 12/14/24 08:20 Narrative Exam General: No acute distress, well nourished HENT: Normocephalic, normal hearing, moist oral mucosa Lungs: Non-labored respirations, symmetric chest rise Heart: Peripheral pulses intact bilaterally, capillary refill brisk distally Abdomen: Non-distended, normal bowel sounds, no masses Musculoskeletal: Normal range of motion Psychiatric: Cooperative, appropriate mood and affect Neurological: Mental status: Orientation: Oriented to person, place, time, and situation Communication: Patient is cooperative and can follow simple instructions Language: Speech fluent, normal rate and volume, comprehension intact Cranial nerves: CN II: Visual reynolds intact CN III: Pupils equal, round, and reactive to light CN III, IV, : No gaze deviation, no nystagmus Horizontal pursuit: intact Vertical pursuit: intact Ptosis: none CN V: Facial sensation to light touch intact bilaterally at the forehead, cheeks, and jaw line CN VII: Face symmetric, no facial droop appreciated CN VIII: Able to hear and respond to conversation at normal volume CN IX, X: Palate elevation symmetric, uvula midline CN XI: Head turn and shoulder shrug strong, symmetric bilaterally CN XII: Normal tongue protrusion without deviation, no fasciculations Motor: Normal bulk and tone No abnormal movements or fasciculations Muscle strength: Shoulder abduction: R 5/5 L 4/5 Elbow flexion: R 5/5 L 4/5 Elbow extension: R 5/5 L 4/5 Hip flexion: R 5/5 L 3/5 Hip extension: R 5/5 L 3/5 Sensory: RUE: Light touch intact LUE: Light touch intact RLE: Light touch intact LLE: Light touch intact Reflexes: Biceps (C5-6): R 2+ L 2+ Brachioradialis (C5-6): R 2+ L 2+ Triceps (C7-8): R 2+ L 2+ Patellae (L3-4): R 2+ L 2+ Cerebellum: RUE: No dysmetria (finger to nose), no dysdiadochokinesia (rapid alternating movements) LUE: No dysmetria (finger to nose), no dysdiadochokinesia (rapid alternating movements) Romberg: deferred Gait: deferred Objective Labs 12/15/24 04:59 12/15/24 04:59 Labs: Laboratory Results - last 24 hr 12/09/24 12/14/24 12/14/24 09:04 04:54 16:13 WBC 11.0 H RBC 3.69 L Hgb 11.3 L Hct 31.5 L MCV 85 MCH 30.6 MCHC 35.9 RDW Std Deviation 45.2 H Plt Count 114 L Neut % (Auto) 69 Lymph % (Auto) 22 [place] % (Auto) 3 Eos % (Auto) 1 Baso % (Auto) 0 Neut # (Auto) 7.6 Lymph # (Auto) 2.4 [place] # (Auto) 0.4 Eos # (Auto) 0.1 Baso # (Auto) 0.0 Immature Gran # (Auto) 0.45 H Absolute Nucleated RBC 0.00 Immature Gran % 4 H Nucleated RBC % 0 Total Abs Lymphocytes 1769 PT 12.0 INR 1.1 APTT 21.9 L Sodium 131 L Potassium 3.6 Chloride 98 Carbon Dioxide 25.4 Anion Gap 8 BUN 10 Creatinine 0.4 L Estim Creat Clear Calc 180.0 eGFR > 60 BUN/Creatinine Ratio 25 H Glucose 84 Calculated Osmolality 260 L Calcium 7.8 L Corrected Calcium 8.8 Phosphorus 2.0 L Magnesium 1.6 Total Bilirubin 0.9 AST 24 ALT 37 Alkaline Phosphatase 71 Total Protein 4.8 L Albumin 2.7 L Globulin 2.1 L Albumin/Globulin Ratio 1.3 ABG Interpretation ABG results: 12/09/24 11:24 ABG pH 7.44 ABG pCO2 29 L ABG pO2 108 ABG HCO3 20 ABG O2 Saturation 99 H ABG Base Excess -3 Quality Measures Quality Measures sepsis (White count 20.6, lactic 2.3, CRP 3.5, procalcitonin 0.07.) Current suspected stage: ruled out Possible source: skin/soft tissue Blood cultures ordered: yes Antibiotic ordered: Yes Advance care planning discussed with:: patient Assessment & Plan Assessment Current Active Medications: Generic Name Dose Route Start Last Admin Trade Name Freq PRN Reason Stop Dose Admin Acetaminophen 650 mg 12/08/24 00:24 Acetaminophen 325 Mg Tablet PO 01/07/25 00:23 Q6H PRN Fever >100.4 Acetaminophen 650 mg 12/08/24 00:24 12/08/24 18:19 Acetaminophen 325 Mg Tablet PO 01/07/25 00:23 650 mg Q6H PRN Administration PAIN SCALE 1-3 (mild Atenolol 25 mg 12/11/24 12:15 12/14/24 08:00 Atenolol 25 Mg Tablet PO 01/10/25 12:14 25 mg QDAY IZABEL Administration Atorvastatin Calcium 80 mg 12/10/24 21:00 12/14/24 00:11 Atorvastatin Calcium 20 Mg Tablet PO 01/09/25 20:59 80 mg HS IZABEL Administration Dexamethasone 8 mg 12/12/24 09:00 12/14/24 08:00 Dexamethasone 4 Mg Tablet PO 12/15/24 08:59 8 mg QDAY IZABEL Administration Dexamethasone 4 mg 12/16/24 09:00 Dexamethasone 4 Mg Tablet PO 12/19/24 08:59 QDAY IZABEL Dexamethasone 2 mg 12/20/24 09:00 Dexamethasone 1 Mg Tablet PO 12/22/24 08:59 QDAY IZABEL Emtricitabine/Tenofovir 1 tab 12/09/24 09:00 12/14/24 10:18 Emtricitabine 200 Mg/Tenofovir 300 Mg Tab (Non-Form) PO 12/16/24 08:59 1 tab QDAY IZABEL Administration Doxycycline Hyclate 100 mg/ 100 mls @ 100 mls/hr 12/12/24 14:15 12/14/24 08:00 Sodium Chloride IV 12/19/24 14:14 100 mls/hr BID IZABEL Administration Metoprolol Tartrate 5 mg 12/13/24 17:01 12/13/24 17:13 Metoprolol Tartrate Inj 1 Mg/Ml Amp 5 Ml IVP 5 mg Q5MIN PRN Administration TACHYCARDIA Protocol Ondansetron HCl 4 mg 12/08/24 00:24 Ondansetron Inj 2 Mg/Ml Inj 2 Ml IVP 01/07/25 00:23 Q6H PRN NAUSEA OR VOMITING Protocol Potassium Phos/Sodium Phos 1 packet 12/14/24 09:00 12/14/24 10:14 Naph,Pending Sale To [facility] Mbdb 1 Packet (1.5 Gm) PO 01/13/25 08:59 1 packet BID IZABEL Administration Plan an #Hx of intracranial hemorrhage #Hx of hypertension Home meds: Atenolol 25 mg q daily and atorvastatin 40 mg q daily Patient has residual left-sided weakness, 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 No acute change in symptoms. Imaging demonstrated no acute intracranial hemorrhage. Given that patient's ICH not due to tumor, no need to continue steroids. Primary team requested records from [facility], pending reports. On medication review from rehab facility, patient missed his dose of dexamethasone 4 mg twice daily for last 2 days which was started by neurosurgeon at [facility] in September 2024. Given stress dose hydrocortisone 100 mg q6h for concern of adrenal suppression by primary team. HIV Ab non-reactive CT head w/o 12/09: Large area of encephalomalacia in the right frontal lobe again noted with mass effect unchanged upon the right lateral ventricle. No interval acute hemorrhage MRI brain 12/09: Large area of restricted diffusion with signal deficit consistent with infarct in the right frontal lobe with subacute hemorrhage. Postcontrast images demonstrate enhancement of this mass Plan: - Steroid taper as follows: 4 mg QD x 2 days (12/15-12/16), 2 mg QD x2 days (12/17-12/18), discontinue 12/19. Pending [place] records. - Support for left foot when appropriate given patient's mobility - BP managed per primary team #New Onset A-fib RVR Plan: Managed per primary team Given recent ICH, anticoagulants contraindicated #Right buttock cellulitis Plan: Managed by primary team Plan discussed with Dr. Puga. [place] Gordon, PGY1 Attending Provider Attestation/Addendum I personally have seen and examined the patient at the bedside and agreed with resident's findings, assessment and plan of care. Continue with physical therapy and periodic dressing. Follow-up with the medical records from [place] when they become available. Continue to do weaning doses of steroids
[2024-12-15] VITALS (16 sets, daily range): BP systolic 106–128; BP diastolic 68–90; PULSE 59–99; RESP 16–23; TEMP 36.2–37.1; O2SAT 91–98
--- NOTE | 2024-12-15 | XR_ITS ---
Examination: Percutaneous placement retrievable inferior venacavogram filter Inferior venacavogram Fluoroscopy Selective catheterization inferior vena cava Ultrasound-guided venous access right common femoral vein. AP Abdomen, portable, 2 views Date: December 15, 2024 0944 hours INDICATIONS: Positive for extensive left leg deep vein thrombosis December 14, 2024, extensive bilateral pulmonary emboli on CT chest December 14, 2024 Informed consent provided. Time out performed Technique And Findings: Skin prepped over the right groin. 1 % Lidocaine administered for local anesthesia. Sterile drape applied. Maximum sterile barrier technique, hand hygiene, ultrasound sterile technique. Ultrasound utilized for localization right common femoral vein. Utilizing ultrasonographic guidance, puncture right common femoral vein with a 21-gauge needle. Placement 0.18 wire guide through the needle into the common femoral vein under fluoroscopic guidance. Placement 5 Divehi introducer catheter over the wire guide. Core removed and 0.35 wire guide and placed in the IVC under fluoroscopic guidance. Percutaneous retrievable IVC filter deployment catheter then placed over the wire guide under fluoroscopic guidance to the level L4 level. Inferior venacavogram performed, hand injection 20 cc Isovue 300, serial filming 2 frames per second with the [facility] Normal caliber inferior vena cava and normal position renal veins. Retrievable IVC filter then deployed below the renal veins and above the IVC bifurcation. No complications observed. Impression: Successful percutaneous placement retrievable IVC filter Normal inferior vena cavogram. Selective catheterization inferior vena cava. Successful ultrasound-guided venous access right common femoral vein. Fluoroscopy 0.8 minute radiation dose 84.62 milligray 2 spot fluoroscopic abdomen films. AP abdomen completion procedure demonstrates satisfactory position IVC filter.
[2024-12-15 06:23] LABS: Basophils # (Auto) 0.0 Thou/mm3 (0.0-0.2); Basophils % (Auto) 0 % (0-2.5); Eosinophils # (Auto) 0.1 Thou/mm3 (0.0-0.5); Eosinophils % (Auto) 1 % (0-10); Hematocrit 33.8 % (41.0-53.0); Hemoglobin 12.0 g/dL (13.5-16.0); Immature Granulocytes Auto 0.43 Thou/mm3 (0.00-0.00); Lymphocytes # (Auto) 2.1 Thou/mm3 (1.0-4.8); Lymphocytes % (Auto) 15 % (10-50); Mean Corpuscular HGB Conc 35.5 g/dl (31.0-37.0); Mean Corpuscular Hemoglobin 31.2 pg (25.0-35.0); Mean Corpuscular Volume 88 fL (80-100); Monocytes # (Auto) 0.4 Thou/mm3 (0.0-0.8); Monocytes % (Auto) 3 % (0-12); Neutrophils # (Auto) 11.3 Thou/mm3 (1.8-7.7); Neutrophils % (Auto) 79 % (37-80); Nucleated Red Blood Cell # 0.00 Thou/mm3 (0.00-0.00); Nucleated Red Blood Cell % 0 /100 WBC (0); Platelet Count 149 Thou/mm3 (140-440); RDW Standard Deviation 47.1 fL (35.1-43.9); Red Blood Count 3.85 Miln/mm3 (4.50-5.90); White Blood Count 14.3 Thou/mm3 (3.8-10.6)
[2024-12-15 06:29] LABS: INR 1.1 (0.9-1.3); Prothrombin Time 12.0 Seconds (9.0-12.2)
[2024-12-15 06:58] LABS: Anion Gap 8 (7-16); BUN/Creatinine Ratio 24 Ratio (12-20); Blood Urea Nitrogen 12 mg/dL (9-23); Calcium 8.4 mg/dL (8.3-10.6); Carbon Dioxide 26.4 mMol/L (20.0-31.0); Chloride 102 mMol/L (98-107); Creatinine (Component) 0.5 mg/dL (0.6-1.3); Estimated Creatinine Clearance 144.0 mL/min (>60); Glucose 91 mg/dL (74-106); Magnesium 1.8 mg/dL (1.6-2.6); Osmolality,Calculated 271 (275-295); Phosphorous 2.3 mg/dL (2.4-5.1); Potassium 4.0 mMol/L (3.4-5.1); Sodium 136 mMol/L (136-145); eGFR > 60 See Note
[2024-12-15] MEDS: NAPH,KPH MBDB 1 PACKET (1.5 GM) PO ×2 (09:11→20:35)
[2024-12-15] MEDS: DOXYCYCLINE INJ 100 MG in SODIUM CHLORIDE 0.9% (POP) 100 ML IV ×2 (09:12→20:35)
[2024-12-15] MEDS: EMTRICITABINE 200 MG/TENOFOVIR 300 MG TAB (NON-FORM) 1 TAB PO (09:12)
[2024-12-15] MEDS: fentaNYL CIT INJ 50 mCg/ML AMP 2ML IVP (10:36)
[2024-12-15] MEDS: LIDOCAINE INJ PF 1% 30 ML VIAL 6 ML EPID (10:36)
--- NOTE | 2024-12-15 10:50 | PC.NURSE ---
Per DR Jaylon Cuellar he wants patient to lay down flat for six hours, monitor any signs of bleeding, may lift head up to 30 degrees but keep him as supine as possible, Emilee LUNSFORD and patient aware. Before i took patient back to his room i took a look at the right groin and the gauze looks clean dry and intact without any signs of bleeding.
[2024-12-15] MEDS: Magnesium Sulfate 2 GM Ivpb 2 GM/50 ML BAG IV (11:53)
--- NOTE | 2024-12-15 14:37 | PD.RESPRO ---
Documentation for date of: 12/15/24 Subjective Subjective Interval history: Patient seen at bedside, no new symptoms. Working on sitting on edge of bed with PT. Exam Vital Signs Temp Pulse Resp BP Pulse Ox O2 Del Method O2 Flow Rate 97.9 F 61 16 106/70 97 Nasal Cannula 2 12/15/24 11:47 12/15/24 11:47 12/15/24 11:47 12/15/24 11:47 12/15/24 11:47 12/15/24 11:47 12/15/24 11:47 Narrative Exam General: No acute distress, well nourished HENT: Normocephalic, normal hearing, moist oral mucosa. Lungs: Non-labored respirations, symmetric chest rise Heart: Peripheral pulses intact bilaterally. Left LE mild pitting edema to knee, no pallor, erythema or warmth of LLE Abdomen: Non-distended, normal bowel sounds, no masses Musculoskeletal: Normal range of motion Psychiatric: Cooperative, appropriate mood and affect Neurological: Mental status: Orientation: Oriented to person, place, time, and situation Communication: Patient is cooperative and can follow simple instructions Language: Speech fluent, normal rate and volume, comprehension intact Cranial nerves: CN II: Visual reynolds intact CN III: Pupils equal, round, and reactive to light CN III, IV, : No gaze deviation, no nystagmus Horizontal pursuit: intact Vertical pursuit: intact Ptosis: none CN V: Facial sensation to light touch intact bilaterally at the forehead, cheeks, and jaw line CN VII: Face symmetric, no facial droop appreciated CN VIII: Able to hear and respond to conversation at normal volume CN IX, X: Palate elevation symmetric, uvula midline CN XI: Head turn and shoulder shrug strong, symmetric bilaterally CN XII: Normal tongue protrusion without deviation, no fasciculations Motor: Normal bulk and tone No abnormal movements or fasciculations Muscle strength: Shoulder abduction: R 5/5 L 4/5 Elbow flexion: R 5/5 L 4/5 Elbow extension: R 5/5 L 4/5 Hip flexion: R 5/5 L 3/5 Hip extension: R 5/5 L 3/5 Sensory: RUE: Light touch intact LUE: Light touch intact RLE: Light touch intact LLE: Light touch intact Reflexes: Biceps (C5-6): R 2+ L 2+ Brachioradialis (C5-6): R 2+ L 2+ Triceps (C7-8): R 2+ L 2+ Patellae (L3-4): R 2+ L 2+ Cerebellum: RUE: No dysmetria (finger to nose), no dysdiadochokinesia (rapid alternating movements) LUE: No dysmetria (finger to nose), no dysdiadochokinesia (rapid alternating movements) Romberg: deferred Gait: deferred Objective Labs 12/15/24 04:59 12/15/24 04:59 Labs: Laboratory Results - last 24 hr 12/14/24 12/15/24 16:13 04:59 WBC 14.3 H RBC 3.85 L Hgb 12.0 L Hct 33.8 L MCV 88 MCH 31.2 MCHC 35.5 RDW Std Deviation 47.1 H Plt Count 149 D Neut % (Auto) 79 Lymph % (Auto) 15 [place] % (Auto) 3 Eos % (Auto) 1 Baso % (Auto) 0 Neut # (Auto) 11.3 H Lymph # (Auto) 2.1 [place] # (Auto) 0.4 Eos # (Auto) 0.1 Baso # (Auto) 0.0 Immature Gran # (Auto) 0.43 H Absolute Nucleated RBC 0.00 Immature Gran % 3 H Nucleated RBC % 0 PT 12.0 12.0 INR 1.1 1.1 APTT 21.9 L Sodium 136 Potassium 4.0 Chloride 102 Carbon Dioxide 26.4 Anion Gap 8 BUN 12 Creatinine 0.5 L Estim Creat Clear Calc 144.0 eGFR > 60 BUN/Creatinine Ratio 24 H Glucose 91 Calculated Osmolality 271 L Calcium 8.4 Phosphorus 2.3 L Magnesium 1.8 ABG Interpretation ABG results: 12/09/24 11:24 ABG pH 7.44 ABG pCO2 29 L ABG pO2 108 ABG HCO3 20 ABG O2 Saturation 99 H ABG Base Excess -3 Quality Measures Quality Measures sepsis (White count 20.6, lactic 2.3, CRP 3.5, procalcitonin 0.07.) Current suspected stage: ruled out Possible source: skin/soft tissue Blood cultures ordered: yes Antibiotic ordered: Yes Advance care planning discussed with:: patient and sibling Assessment & Plan Assessment Current Active Medications: Generic Name Dose Route Start Last Admin Trade Name Freq PRN Reason Stop Dose Admin Acetaminophen 650 mg 12/08/24 00:24 Acetaminophen 325 Mg Tablet PO 01/07/25 00:23 Q6H PRN Fever >100.4 Acetaminophen 650 mg 12/08/24 00:24 12/08/24 18:19 Acetaminophen 325 Mg Tablet PO 01/07/25 00:23 650 mg Q6H PRN Administration PAIN SCALE 1-3 (mild Atenolol 25 mg 12/11/24 12:15 12/15/24 09:12 Atenolol 25 Mg Tablet PO 01/10/25 12:14 25 mg QDAY IZABEL Administration Atorvastatin Calcium 80 mg 12/10/24 21:00 12/14/24 20:37 Atorvastatin Calcium 20 Mg Tablet PO 01/09/25 20:59 80 mg HS IZABEL Administration Dexamethasone 4 mg 12/16/24 09:00 Dexamethasone 4 Mg Tablet PO 12/19/24 08:59 QDAY IZABEL Dexamethasone 2 mg 12/20/24 09:00 Dexamethasone 1 Mg Tablet PO 12/22/24 08:59 QDAY IZABEL Emtricitabine/Tenofovir 1 tab 12/09/24 09:00 12/15/24 09:12 Emtricitabine 200 Mg/Tenofovir 300 Mg Tab (Non-Form) PO 12/16/24 08:59 1 tab QDAY IZABEL Administration Doxycycline Hyclate 100 mg/ 100 mls @ 100 mls/hr 12/12/24 14:15 12/15/24 09:12 Sodium Chloride IV 12/19/24 14:14 100 mls/hr BID IZABEL Administration Metoprolol Tartrate 5 mg 12/13/24 17:01 12/13/24 17:13 Metoprolol Tartrate Inj 1 Mg/Ml Amp 5 Ml IVP 5 mg Q5MIN PRN Administration TACHYCARDIA Protocol Ondansetron HCl 4 mg 12/08/24 00:24 Ondansetron Inj 2 Mg/Ml Inj 2 Ml IVP 01/07/25 00:23 Q6H PRN NAUSEA OR VOMITING Protocol Potassium Phos/Sodium Phos 1 packet 12/14/24 09:00 12/15/24 09:11 Naph,[facility] Mbdb 1 Packet (1.5 Gm) PO 01/13/25 08:59 1 packet BID IZABEL Administration Plan #Hx of intracranial hemorrhage #Hx of hypertension Home meds: Atenolol 25 mg q daily and atorvastatin 40 mg q daily Patient has residual left-sided weakness, 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 No acute change in symptoms. Imaging demonstrated no acute intracranial hemorrhage. Given that patient's ICH not due to tumor, no need to continue steroids. Primary team requested records from [facility], pending reports. On medication review from rehab facility, patient missed his dose of dexamethasone 4 mg twice daily for last 2 days which was started by neurosurgeon at [facility] in September 2024. Given stress dose hydrocortisone 100 mg q6h for concern of adrenal suppression by primary team. HIV Ab non-reactive CT head w/o 12/09: Large area of encephalomalacia in the right frontal lobe again noted with mass effect unchanged upon the right lateral ventricle. No interval acute hemorrhage MRI brain 12/09: Large area of restricted diffusion with signal deficit consistent with infarct in the right frontal lobe with subacute hemorrhage. Postcontrast images demonstrate enhancement of this mass Plan: - Steroid taper as follows: 4 mg QD x 2 days (12/15-12/16), 2 mg QD x2 days (12/17-12/18), discontinue 12/19. Pending [place] records. - Support for left foot when appropriate given patient's mobility - BP managed per primary team - F/U outpatient neurology scheduled 12/18 #New Onset A-fib RVR TTE 12/14: Indications: New Afib. Findings: Normal LV. Estimated EF 55-60%. RV Normal. Trace MR, PI. No Pericardial Effusion. Plan: - Managed per primary team - Given recent ICH, anticoagulants contraindicated #Left lower extremity DVT Venuos Doppler 12/14: Positive for nonocclusive thrombus involving the left common femoral left superficial femoral, popliteal, peroneal and posterior tibial veins IVC filter placed 12/15 Plan: - Managed per primary team - Given recent ICH, anticoagulants contraindicated #Right buttock cellulitis Plan: Managed by primary team Plan discussed with Dr. Puga. [place] Gordon, PGY1 Attending Provider Attestation/Addendum I personally have seen and examined the patient at the bedside and I agreed with the resident's findings, assessment and plan of care. Clinical and radiological findings are consistent with traumatic intracerebral hemorrhage rather than malignancy. Will continue with the weaning doses of Decadron as advised. Encourage him to participate with physical therapy.
--- NOTE | 2024-12-15 15:59 | ESPR_ITS ---
Documentation for date of: 12/15/24 Subjective Subjective Interval history: Patient is seen and examined at bedside No acute overnight events. Denies any complaints Patient underwent IVC filter placement and is tolerating well Recommend to continue Adderall 25 Mg p.o. daily Patient will be monitored for today and plan to discharge tomorrow by the primary team Exam Vital Signs Temp Pulse Resp BP Pulse Ox O2 Del Method O2 Flow Rate 97.9 F 60 16 106/70 97 Nasal Cannula 2 12/15/24 11:47 12/15/24 14:42 12/15/24 11:47 12/15/24 11:47 12/15/24 11:47 12/15/24 11:47 12/15/24 11:47 Narrative Exam General: Awake. HEENT: Normocephalic, atraumatic, mucous membranes moist. Heart: Regular rhythm, no murmurs. Lungs: Clear to auscultation with no wheezing or crackles. Abdomen: Soft, nondistended, nontender, positive bowel sounds. ?No guarding or rebound tenderness. Neurologic: Alert and oriented x3, weakness noted in the left half of the body from residual stroke 2/5 in the lower extremities Extremities: Noted edema on Left lower extremity without any tenderness. Skin: noted gluteal cellulitis on the picture from chart review Objective Labs 12/16/24 05:00 12/16/24 05:00 Labs: Laboratory Results - last 24 hr 12/14/24 12/15/24 16:13 04:59 WBC 14.3 H RBC 3.85 L Hgb 12.0 L Hct 33.8 L MCV 88 MCH 31.2 MCHC 35.5 RDW Std Deviation 47.1 H Plt Count 149 D Neut % (Auto) 79 Lymph % (Auto) 15 [place] % (Auto) 3 Eos % (Auto) 1 Baso % (Auto) 0 Neut # (Auto) 11.3 H Lymph # (Auto) 2.1 [place] # (Auto) 0.4 Eos # (Auto) 0.1 Baso # (Auto) 0.0 Immature Gran # (Auto) 0.43 H Absolute Nucleated RBC 0.00 Immature Gran % 3 H Nucleated RBC % 0 PT 12.0 12.0 INR 1.1 1.1 APTT 21.9 L Sodium 136 Potassium 4.0 Chloride 102 Carbon Dioxide 26.4 Anion Gap 8 BUN 12 Creatinine 0.5 L Estim Creat Clear Calc 144.0 eGFR > 60 BUN/Creatinine Ratio 24 H Glucose 91 Calculated Osmolality 271 L Calcium 8.4 Phosphorus 2.3 L Magnesium 1.8 ABG Interpretation ABG results: 12/09/24 11:24 ABG pH 7.44 ABG pCO2 29 L ABG pO2 108 ABG HCO3 20 ABG O2 Saturation 99 H ABG Base Excess -3 Quality Measures Quality Measures sepsis (White count 20.6, lactic 2.3, CRP 3.5, procalcitonin 0.07.) Current suspected stage: ruled out Possible source: skin/soft tissue Blood cultures ordered: yes Antibiotic ordered: Yes Advance care planning discussed with:: patient Assessment & Plan Assessment Current Active Medications: Generic Name Dose Route Start Last Admin Trade Name Freq PRN Reason Stop Dose Admin Acetaminophen 650 mg 12/08/24 00:24 Acetaminophen 325 Mg Tablet PO 01/07/25 00:23 Q6H PRN Fever >100.4 Acetaminophen 650 mg 12/08/24 00:24 12/08/24 18:19 Acetaminophen 325 Mg Tablet PO 01/07/25 00:23 650 mg Q6H PRN Administration PAIN SCALE 1-3 (mild Atenolol 25 mg 12/11/24 12:15 12/15/24 09:12 Atenolol 25 Mg Tablet PO 01/10/25 12:14 25 mg QDAY IZABEL Administration Atorvastatin Calcium 80 mg 12/10/24 21:00 12/14/24 20:37 Atorvastatin Calcium 20 Mg Tablet PO 01/09/25 20:59 80 mg HS IZABEL Administration Dexamethasone 4 mg 12/15/24 15:15 Dexamethasone 4 Mg Tablet PO 12/16/24 10:00 QDAY IZABEL Protocol Dexamethasone 2 mg 12/17/24 09:00 Dexamethasone 1 Mg Tablet PO 12/18/24 09:00 QDAY IZABEL Emtricitabine/Tenofovir 1 tab 12/09/24 09:00 12/15/24 09:12 Emtricitabine 200 Mg/Tenofovir 300 Mg Tab (Non-Form) PO 12/16/24 08:59 1 tab QDAY IZABEL Administration Doxycycline Hyclate 100 mg/ 100 mls @ 100 mls/hr 12/12/24 14:15 12/15/24 09:12 Sodium Chloride IV 12/19/24 14:14 100 mls/hr BID IZABEL Administration Metoprolol Tartrate 5 mg 12/13/24 17:01 12/13/24 17:13 Metoprolol Tartrate Inj 1 Mg/Ml Amp 5 Ml IVP 5 mg Q5MIN PRN Administration TACHYCARDIA Protocol Ondansetron HCl 4 mg 12/08/24 00:24 Ondansetron Inj 2 Mg/Ml Inj 2 Ml IVP 01/07/25 00:23 Q6H PRN NAUSEA OR VOMITING Protocol Potassium Phos/Sodium Phos 1 packet 12/14/24 09:00 12/15/24 09:11 Naph,[facility] Mbdb 1 Packet (1.5 Gm) PO 01/13/25 08:59 1 packet BID IZABEL Administration Plan A 69-year-old male with significant past medical history of hypertension, hyperlipidemia, CAD status post 2 stents in 2003, recent ICH in 09/2024 currently residing in nursing facility was brought to the hospital with chief complaints of worsening of his ulcer and swelling on his buttocks since 1 week and cardiology is consulted for paroxysmal atrial fibrillation and Acute pulmonary thromboembolism # Acute pulmonary thromboembolism - s/p IVC filter placement # Acute left lower extremity DVT in the setting of immobilization - Venous Doppler done on 12/14/2024 showed acute DVT in left lower extremity - CT angio chest showed multiple bilateral pulmonary emboli - Echocardiogram showed Normal LV. Estimated EF 55-60%. RV Normal.Trace MR, PI. No Pericardial Effusion. - Cardiology is consulted in view of thromboembolism - Patient cannot be started on anticoagulation in view of recent hemorrhagic stroke 1 month ago - Could not undergo mechanical thrombectomy as it looks like submassive pulmonary thromboembolism and also patient cannot receive anticoagulation which should be given during the mechanical thrombectomy - Echocardiogram done did not show any RV strain Plan - As patient cannot undergo anticoagulation, recommended to place IVC filter IR guided as of now - underwent IVC filter placement on 12/15/2024 and patient tolerated the procedure well - Explained that patient might need anticoagulation after 2 months and recommend to follow-up in outpatient basis in the clinic # Paroxysmal atrial fibrillation ---> reverted to normal sinus rhythm - Patient is admitted to the hospital for gluteal cellulitis and abscess - Patient was supposed to go to surgery on 12/09/2024, but developed tachycardia with heart rate around 150 and mild altered sensorium before going to the surgery - Telemetry strips showed atrial fibrillation with rapid ventricular rate - Patient received 3.5 L of fluid in total, 1 diltiazem IV push and 1 dose of digoxin 0.25 mg - Patient reverted to normal sinus rhythm after fluid resuscitation and medications - Cardiology is consulted as patient had previous history of CAD and tachyarrhythmia - [id number] is 5, has bled score is 4 Plan - Recommended to continue telemetry monitoring - [id number] is high, no need of anticoagulation as of now as the paroxysmal A-fib seems to be occurring in the setting of ongoing abscess. - Keep magnesium greater than 2 and potassium greater than 4 # History of CAD s/p stenting - Patient had extensive family history of CAD in his family - Patient underwent 2 stents placement in 2003 Plan - Recommend to continue aspirin and statin # History of hypertension - Patient's blood pressure is within normal limits during the hospital stay without any medications Plan - Recommended to continue to monitor blood pressures and start medications as needed Patient plan of care was discussed with Corporate Wellness Coordinator Dr. Gilbert Wang, PGY2
--- NOTE | 2024-12-15 17:27 | ESPR_ITS ---
<Statement entered by Diaz Arredondo MD - 12/15/24 17:57> Patient seen and examined at bedside, no acute overnight events. I discussed and supervised with the recruiting intern physician who took care of this patient. I personally saw and examined the patient. I agree with most of the assessment and plan. Patient received IVC filter, well tolerated. Remains hemodynamically stable. Wound vac in place, patient on PO doxy. Continuing decadron taper. Plan for DC tomorrow. Plan of care discussed with attending Dr. Zacarias. Diaz Arredondo MD PGY-2 Documentation for date of: 12/15/24 Subjective Subjective Interval history: pt heading to IR to get IVC filter today No acute events overnight, hemodynamically stable. Exam Vital Signs Temp Pulse Resp BP Pulse Ox O2 Del Method O2 Flow Rate 97.9 F 65 18 109/72 95 Nasal Cannula 2 12/15/24 16:00 12/15/24 17:17 12/15/24 16:00 12/15/24 16:00 12/15/24 16:00 12/15/24 16:00 12/15/24 16:00 Vitals over the past 24hours were reviewed: Temp: Afebrile HR: wnl BP: wnl RR: satting well on 2L nc Narrative Exam General: A/O x3, no acute distress Lungs: Clear SHIVA to auscultation and percussion, No accessory muscle use. Cardio: Normal S1/S2, regular rhythm, no murmurs, no JVD. Abdomen: Soft, non-tender, no palpable masses, no guarding or rebound. Extremities: Symmetrical, no significant deformities, Left leg is has some edema. non-tender. Skin: No rashes, no lesions, right gluteal cleft wound, s/p debridement, wound vac in place Neuro: L sided weakness compared to the R side, No facial asymmetry,able to follow commands Objective Labs 12/16/24 05:00 12/16/24 05:00 Labs: Laboratory Results - last 24 hr 12/15/24 04:59 WBC 14.3 H RBC 3.85 L Hgb 12.0 L Hct 33.8 L MCV 88 MCH 31.2 MCHC 35.5 RDW Std Deviation 47.1 H Plt Count 149 D Neut % (Auto) 79 Lymph % (Auto) 15 [place] % (Auto) 3 Eos % (Auto) 1 Baso % (Auto) 0 Neut # (Auto) 11.3 H Lymph # (Auto) 2.1 [place] # (Auto) 0.4 Eos # (Auto) 0.1 Baso # (Auto) 0.0 Immature Gran # (Auto) 0.43 H Absolute Nucleated RBC 0.00 Immature Gran % 3 H Nucleated RBC % 0 PT 12.0 INR 1.1 Sodium 136 Potassium 4.0 Chloride 102 Carbon Dioxide 26.4 Anion Gap 8 BUN 12 Creatinine 0.5 L Estim Creat Clear Calc 144.0 eGFR > 60 BUN/Creatinine Ratio 24 H Glucose 91 Calculated Osmolality 271 L Calcium 8.4 Phosphorus 2.3 L Magnesium 1.8 ABG Interpretation ABG results: 12/09/24 11:24 ABG pH 7.44 ABG pCO2 29 L ABG pO2 108 ABG HCO3 20 ABG O2 Saturation 99 H ABG Base Excess -3 Quality Measures Quality Measures sepsis (White count 20.6, lactic 2.3, CRP 3.5, procalcitonin 0.07.) Current suspected stage: sepsis Possible source: skin/soft tissue Blood cultures ordered: yes Antibiotic ordered: Yes Advance care planning discussed with:: patient and spouse Assessment & Plan Assessment Current Active Medications: Generic Name Dose Route Start Last Admin Trade Name Freq PRN Reason Stop Dose Admin Acetaminophen 650 mg 12/08/24 00:24 Acetaminophen 325 Mg Tablet PO 01/07/25 00:23 Q6H PRN Fever >100.4 Acetaminophen 650 mg 12/08/24 00:24 12/08/24 18:19 Acetaminophen 325 Mg Tablet PO 01/07/25 00:23 650 mg Q6H PRN Administration PAIN SCALE 1-3 (mild Atenolol 25 mg 12/11/24 12:15 12/15/24 09:12 Atenolol 25 Mg Tablet PO 01/10/25 12:14 25 mg QDAY IZABEL Administration Atorvastatin Calcium 80 mg 12/10/24 21:00 12/14/24 20:37 Atorvastatin Calcium 20 Mg Tablet PO 01/09/25 20:59 80 mg HS IZABEL Administration Dexamethasone 4 mg 12/15/24 15:15 12/15/24 16:12 Dexamethasone 4 Mg Tablet PO 12/16/24 10:00 4 mg QDAY IZABEL Administration Protocol Dexamethasone 2 mg 12/17/24 09:00 Dexamethasone 1 Mg Tablet PO 12/18/24 09:00 QDAY IZABEL Emtricitabine/Tenofovir 1 tab 12/09/24 09:00 12/15/24 09:12 Emtricitabine 200 Mg/Tenofovir 300 Mg Tab (Non-Form) PO 12/16/24 08:59 1 tab QDAY IZABEL Administration Doxycycline Hyclate 100 mg/ 100 mls @ 100 mls/hr 12/12/24 14:15 12/15/24 09:12 Sodium Chloride IV 12/19/24 14:14 100 mls/hr BID IZABEL Administration Metoprolol Tartrate 5 mg 12/13/24 17:01 12/13/24 17:13 Metoprolol Tartrate Inj 1 Mg/Ml Amp 5 Ml IVP 5 mg Q5MIN PRN Administration TACHYCARDIA Protocol Ondansetron HCl 4 mg 12/08/24 00:24 Ondansetron Inj 2 Mg/Ml Inj 2 Ml IVP 01/07/25 00:23 Q6H PRN NAUSEA OR VOMITING Protocol Potassium Phos/Sodium Phos 1 packet 12/14/24 09:00 12/15/24 09:11 Naph,[facility] Mbdb 1 Packet (1.5 Gm) PO 01/13/25 08:59 1 packet BID IZABEL Administration Plan 69-year-old male with past medical history of hypertension, hyperlipidemia, CAD s/p 2 stents, and recent intracranial hemorrhage on 10/01/2024, admitted for management of right buttock cellulitis, s/p I&D with gen surg, now with wound vac (reqiring changes MW). DVT LLE with extensive dvt, cta chest with bilateral pulm art emboli, Cards and neuro consulted, hold anticoag given recent hx of intracranial bleed (undergoing steroid taper per Neuro recs), IVC filter placed today with IR, WBC elevated 14 from 11, considering discharge tomorrow. #Left LE DVT #BL pulm art emboli pt noted to have some edema of Left leg, fth extensive dvt of left LE, and BL pulm art emboly on cta chest. CARDS and Neuro consulted, appreciate recs (pt not candidate for thrombectomy and hold anticoag given hx of recent intracranial bleed) pt is hemodynamically stable. Tx - IVC filter placed 12/15 with IR #Right buttock cellulitis, s/p I&D #Leukocytosis, fluctuating (wbc 14 from 11) #Lactic acidosis, resolved Patient came in with initial complaints of pain in the right buttocks Abdomen/pelvis CT showed perianal inflammation which extends to the inter gluteal fold with cellulitis primarily the right buttock region, no fluid-filled drainable abscess. In the ED patient received vancomycin and Zosyn x 1 Negative acid was 2.3 and downtrended to 1.3 Patient did not have any fevers, tachycardia, or any signs of systemic inflammatory response other than WBC elevation. WBCs up, 14 from 11, pt remains afebrile: consider infxn vs inflammation iso PE, or consider additional infectious workup prior to discharge Dx Surgery was consulted and recommended IV Abx Blood cultures negative -consider ID consult given elevated wbc, that was previosly downtrending. 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 Postcontrast images demonstrate enhancement of this mass, differential would include luxury enhancement in a right frontal infarct versus enhancement in a right frontal tumor Plan Neuro suspected it to be old infarct/bleed, did not recommend transfer - PT Eval reccomend dispo to snf for continued rehab - Steroid taper per neuro recs: 4mg 12/15 and 12/16, then 2 mg 12/17 and 12/18, then STOP Neuro checks q4 hr Aspiration precautions Monitor for any new worsening neurological symptoms SCD's for DVT prophylaxis #Hypotension, resolved #New Onset A-fib RVR, currently rate controlled #Acute encephalopathy likely multifactorial, resolved Refer to previous note and/or 12-09-2024 event note for complete write up regarding rapid response Will follow up the medical records from [facility] Patient continues to be on hydrocortisone 100 mg q6 hr. Neurology recommended Steroid taper to be completed over 6 days: 4 mg daily x3 days and 2 mg daily for 2 days and then stop. Total daily dosage of hydrocortisone converted to Decadron equals 15 mg q daily, which 12/10/2024 will be his 2nd day 15 mg q day equivalent Patient had sinus tachycardia 120 bpm w/o chest pain, SOB, or discomfort Plan: -ECHO: Normal LV. Estimated EF 55-60%. RV Normal. Trace MR, PI. No Pericardial Effusion. -Assistant Golf Coach recommended to continue atenolol 25 mg p.o. daily patient's home medication -metoprolol tartrate IVP 5mg PRN for tachycardia >120 bpm #Normocytic Anemia #Chronic Thrombocytopenia -Anemia Likely due to dilutional due to IV fluids No signs of overt bleeding. PRBC if hgb drops below 7. #NSTEMI Type II - demand ischemia Mildly elevated troponin, resolved No signs of chest pain No acute st changes on ecg Chronic disease: #Hx of hypertension #Hx of CAD s/p stents #Hx of ICH Blood pressure has been stable since came into the ED. Patient's home medication includes atenolol 25 mg q daily and atorvastatin 40 mg q daily. Blood pressure has been well controlled, will add anti-hypertensives as necessary. Disposition: Patient admitted to med surg for R buttock cellulitis, wound vac for buttock, IVC placed and plan for dispo to snf. Diet: Cardiac GI prophylaxis: not indicated DVT prophylaxis: SCDs due to recent ICH Code: Full Case discussed with my attending Dr.Lau Keisha Zambrano MD PGY-1 Attending Provider Attestation/Addendum Radha Doshi, DO, attest that I was physically present for the buitrago portions of the service and evaluated the patient with the resident and I reviewed and discussed the case with the resident and agree with the resident's findings and plans of care as documented above Patient seen and evaluated this AM. Patient to receive IVC filter today. at bedside and updated. All questions regarding DVT and PE addressed. Advised to f/u closely with Dr. Hunt outpatient as patient may be able to start anticoagulation in the next few months.
[2024-12-15] MEDS: ACETAMINOPHEN 325 MG TABLET 650 MG PO (19:23)
[2024-12-15] MEDS: ATORVASTATIN CALCIUM 20 MG TABLET 80 MG PO (20:35)
[2024-12-16] VITALS (8 sets, daily range): BP systolic 92–119; BP diastolic 62–86; PULSE 52–91; RESP 16–22; TEMP 36–36.6; O2SAT 94–96; BMI 12.0
[2024-12-16 06:01] LABS: Basophils # (Auto) 0.0 Thou/mm3 (0.0-0.2); Basophils % (Auto) 0 % (0-2.5); Eosinophils # (Auto) 0.0 Thou/mm3 (0.0-0.5); Eosinophils % (Auto) 0 % (0-10); Hematocrit 33.7 % (41.0-53.0); Hemoglobin 11.9 g/dL (13.5-16.0); Immature Granulocytes Auto 0.48 Thou/mm3 (0.00-0.00); Lymphocytes # (Auto) 2.0 Thou/mm3 (1.0-4.8); Lymphocytes % (Auto) 19 % (10-50); Mean Corpuscular HGB Conc 35.3 g/dl (31.0-37.0); Mean Corpuscular Hemoglobin 30.1 pg (25.0-35.0); Mean Corpuscular Volume 85 fL (80-100); Monocytes # (Auto) 0.4 Thou/mm3 (0.0-0.8); Monocytes % (Auto) 4 % (0-12); Neutrophils # (Auto) 7.8 Thou/mm3 (1.8-7.7); Neutrophils % (Auto) 72 % (37-80); Nucleated Red Blood Cell # 0.00 Thou/mm3 (0.00-0.00); Nucleated Red Blood Cell % 0 /100 WBC (0); Platelet Count 144 Thou/mm3 (140-440); RDW Standard Deviation 46.2 fL (35.1-43.9); Red Blood Count 3.95 Miln/mm3 (4.50-5.90); White Blood Count 10.7 Thou/mm3 (3.8-10.6)
[2024-12-16 06:18] LABS: Anion Gap 6 (7-16); BUN/Creatinine Ratio 20 Ratio (12-20); Blood Urea Nitrogen 12 mg/dL (9-23); Calcium 8.3 mg/dL (8.3-10.6); Carbon Dioxide 28.9 mMol/L (20.0-31.0); Chloride 99 mMol/L (98-107); Creatinine (Component) 0.6 mg/dL (0.6-1.3); Estimated Creatinine Clearance 120.0 mL/min (>60); Glucose 81 mg/dL (74-106); Magnesium 1.8 mg/dL (1.6-2.6); Osmolality,Calculated 266 (275-295); Phosphorous 3.4 mg/dL (2.4-5.1); Potassium 4.5 mMol/L (3.4-5.1); Sodium 134 mMol/L (136-145); eGFR > 60 See Note
[2024-12-16] MEDS: NAPH,KPH MBDB 1 PACKET (1.5 GM) PO (08:43)
[2024-12-16] MEDS: DOXYCYCLINE INJ 100 MG in SODIUM CHLORIDE 0.9% (POP) 100 ML IV (08:44)
--- NOTE | 2024-12-16 10:24 | PC.SS ---
Addendum entered by Georgia Best 12/16/24 12:30: SS follow up note; SS contacted patient's [place] and updated her with ETA. Addendum entered by Georgia Best 12/16/24 12:27: SS follow up note: SS contacted [facility] and they informed SS that the earliest ETA they are able to due is 7PM. SS updated patient's nurse Emilee as well as Liliane from [facility]. Original Note: SS contacted [facility] transportation, they informed SS that they would contact SS with ETA.
--- NOTE | 2024-12-16 11:10 | PD.RESPRO ---
Documentation for date of: 12/16/24 Subjective Subjective Interval history: Patient seen at bedside, no new symptoms. Accompanied by sister. Exam Vital Signs Temp Pulse Resp BP Pulse Ox O2 Del Method O2 Flow Rate 97.1 F 76 18 106/72 96 Nasal Cannula 2 12/16/24 08:00 12/16/24 08:43 12/16/24 08:00 12/16/24 08:43 12/16/24 08:00 12/16/24 08:00 12/16/24 08:00 Narrative Exam General: No acute distress, well nourished HENT: Normocephalic, normal hearing, moist oral mucosa. Lungs: Non-labored respirations, symmetric chest rise Heart: Peripheral pulses intact bilaterally. Left LE mild pitting edema to knee, no pallor, erythema or warmth of LLE Abdomen: Non-distended, normal bowel sounds, no masses Musculoskeletal: Normal range of motion Psychiatric: Cooperative, appropriate mood and affect Neurological: Mental status: Orientation: Oriented to person, place, time, and situation Communication: Patient is cooperative and can follow simple instructions Language: Speech fluent, normal rate and volume, comprehension intact Cranial nerves: CN II: Visual reynolds intact CN III: Pupils equal, round, and reactive to light CN III, IV, : No gaze deviation, no nystagmus Horizontal pursuit: intact Vertical pursuit: intact Ptosis: none CN V: Facial sensation to light touch intact bilaterally at the forehead, cheeks, and jaw line CN VII: Face symmetric, no facial droop appreciated CN VIII: Able to hear and respond to conversation at normal volume CN IX, X: Palate elevation symmetric, uvula midline CN XI: Head turn and shoulder shrug strong, symmetric bilaterally CN XII: Normal tongue protrusion without deviation, no fasciculations Motor: Normal bulk and tone No abnormal movements or fasciculations Muscle strength: Shoulder abduction: R 5/5 L 4/5 Elbow flexion: R 5/5 L 4/5 Elbow extension: R 5/5 L 4/5 Hip flexion: R 5/5 L 3/5 Hip extension: R 5/5 L 3/5 Sensory: RUE: Light touch intact LUE: Light touch intact RLE: Light touch intact LLE: Light touch intact Reflexes: Biceps (C5-6): R 2+ L 2+ Brachioradialis (C5-6): R 2+ L 2+ Triceps (C7-8): R 2+ L 2+ Patellae (L3-4): R 2+ L 2+ Cerebellum: RUE: No dysmetria (finger to nose), no dysdiadochokinesia (rapid alternating movements) LUE: No dysmetria (finger to nose), no dysdiadochokinesia (rapid alternating movements) Romberg: deferred Gait: deferred Objective Labs 12/16/24 05:00 12/16/24 05:00 Labs: Laboratory Results - last 24 hr 12/16/24 05:00 WBC 10.7 H RBC 3.95 L Hgb 11.9 L Hct 33.7 L MCV 85 MCH 30.1 MCHC 35.3 RDW Std Deviation 46.2 H Plt Count 144 Neut % (Auto) 72 Lymph % (Auto) 19 [place] % (Auto) 4 Eos % (Auto) 0 Baso % (Auto) 0 Neut # (Auto) 7.8 H Lymph # (Auto) 2.0 [place] # (Auto) 0.4 Eos # (Auto) 0.0 Baso # (Auto) 0.0 Immature Gran # (Auto) 0.48 H Absolute Nucleated RBC 0.00 Immature Gran % 5 H Nucleated RBC % 0 Sodium 134 L Potassium 4.5 D Chloride 99 Carbon Dioxide 28.9 Anion Gap 6 L BUN 12 Creatinine 0.6 Estim Creat Clear Calc 120.0 eGFR > 60 BUN/Creatinine Ratio 20 Glucose 81 Calculated Osmolality 266 L Calcium 8.3 Phosphorus 3.4 Magnesium 1.8 ABG Interpretation ABG results: 12/09/24 11:24 ABG pH 7.44 ABG pCO2 29 L ABG pO2 108 ABG HCO3 20 ABG O2 Saturation 99 H ABG Base Excess -3 Quality Measures Quality Measures sepsis (White count 20.6, lactic 2.3, CRP 3.5, procalcitonin 0.07.) Current suspected stage: ruled out Possible source: skin/soft tissue Blood cultures ordered: yes Antibiotic ordered: No Advance care planning discussed with:: patient Assessment & Plan Assessment Current Active Medications: Generic Name Dose Route Start Last Admin Trade Name Freq PRN Reason Stop Dose Admin Acetaminophen 650 mg 12/08/24 00:24 Acetaminophen 325 Mg Tablet PO 01/07/25 00:23 Q6H PRN Fever >100.4 Acetaminophen 650 mg 12/08/24 00:24 12/15/24 19:23 Acetaminophen 325 Mg Tablet PO 01/07/25 00:23 650 mg Q6H PRN Administration PAIN SCALE 1-3 (mild Atenolol 25 mg 12/11/24 12:15 12/16/24 08:43 Atenolol 25 Mg Tablet PO 01/10/25 12:14 25 mg QDAY IZABEL Administration Atorvastatin Calcium 80 mg 12/10/24 21:00 12/15/24 20:35 Atorvastatin Calcium 20 Mg Tablet PO 01/09/25 20:59 80 mg HS IZABEL Administration Dexamethasone 2 mg 12/17/24 09:00 Dexamethasone 1 Mg Tablet PO 12/18/24 09:00 QDAY IZABEL Doxycycline Hyclate 100 mg/ 100 mls @ 100 mls/hr 12/12/24 14:15 12/16/24 08:44 Sodium Chloride IV 12/19/24 14:14 100 mls/hr BID IZABEL Administration Metoprolol Tartrate 5 mg 12/13/24 17:01 12/13/24 17:13 Metoprolol Tartrate Inj 1 Mg/Ml Amp 5 Ml IVP 5 mg Q5MIN PRN Administration TACHYCARDIA Protocol Ondansetron HCl 4 mg 12/08/24 00:24 Ondansetron Inj 2 Mg/Ml Inj 2 Ml IVP 01/07/25 00:23 Q6H PRN NAUSEA OR VOMITING Protocol Potassium Phos/Sodium Phos 1 packet 12/14/24 09:00 12/16/24 08:43 Naph,[facility] Mbdb 1 Packet (1.5 Gm) PO 01/13/25 08:59 1 packet BID IZABEL Administration Plan #Hx of intracranial hemorrhage #Hx of hypertension Home meds: Atenolol 25 mg q daily and atorvastatin 40 mg q daily Patient has residual left-sided weakness, 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 No acute change in symptoms. Imaging demonstrated no acute intracranial hemorrhage. Given that patient's ICH not due to tumor, no need to continue steroids. Primary team requested records from [facility], pending reports. On medication review from rehab facility, patient missed his dose of dexamethasone 4 mg twice daily for last 2 days which was started by neurosurgeon at [facility] in September 2024. Given stress dose hydrocortisone 100 mg q6h for concern of adrenal suppression by primary team. HIV Ab non-reactive CT head w/o 12/09: Large area of encephalomalacia in the right frontal lobe again noted with mass effect unchanged upon the right lateral ventricle. No interval acute hemorrhage MRI brain 12/09: Large area of restricted diffusion with signal deficit consistent with infarct in the right frontal lobe with subacute hemorrhage. Postcontrast images demonstrate enhancement of this mass l findings are consistent with traumatic intracerebral hemorrhage rather than malignancy. Will continue with the weaning doses of Decadron as advised Plan: - Steroid taper as follows: 4 mg QD x 2 days (12/15-12/16), 2 mg QD x2 days (12/17-12/18), discontinue 12/19. Pending [facility] records. - Support for left foot when appropriate given patient's mobility - BP managed per primary team - Encouraged to continue with PT - Ok to discharge from neurological perspective - F/U outpatient neurology scheduled 12/18 #New Onset A-fib RVR TTE 12/14: Indications: New Afib. Findings: Normal LV. Estimated EF 55-60%. RV Normal. Trace MR, PI. No Pericardial Effusion. Plan: - Managed per primary team - Given recent ICH, anticoagulants contraindicated #Left lower extremity DVT Venuos Doppler 12/14: Positive for nonocclusive thrombus involving the left common femoral left superficial femoral, popliteal, peroneal and posterior tibial veins IVC filter placed 12/15 Plan: - Managed per primary team - Given recent ICH, anticoagulants contraindicated #Right buttock cellulitis Plan: Managed by primary team Neruology will sign off at this time Plan discussed with Dr. Puga. [place] Gordon, PGY1 Attending Provider Attestation/Addendum I have reviewed the patient's info independently and agreed with the resident's findings, assessment and plan of care. Will continue with the current management. Patient is neurologically stable. Will follow-up with the medical records from [facility] and the rehab and he has an appointment in my office.
--- NOTE | 2024-12-16 16:21 | PD.RESPRO ---
Documentation for date of: 12/16/24 Subjective Subjective Interval history: Patient is seen and examined at bedside No acute overnight events. Denies any other complaints Patient is completely weaned off oxygen and is maintaining saturations well Planning to discharge today to rehab Recommend to follow-up in outpatient basis Exam Vital Signs Temp Pulse Resp BP Pulse Ox O2 Del Method O2 Flow Rate 97.3 F 71 18 101/63 94 L Room Air 2 12/16/24 12:00 12/16/24 12:39 12/16/24 12:00 12/16/24 12:00 12/16/24 12:00 12/16/24 12:00 12/16/24 08:00 Narrative Exam General: Awake. HEENT: Normocephalic, atraumatic, mucous membranes moist. Heart: Regular rhythm, no murmurs. Lungs: Clear to auscultation with no wheezing or crackles. Abdomen: Soft, nondistended, nontender, positive bowel sounds. ?No guarding or rebound tenderness. Neurologic: Alert and oriented x3, weakness noted in the left half of the body from residual stroke 2/5 in the lower extremities Extremities: Noted edema on Left lower extremity without any tenderness. Skin: noted gluteal cellulitis on the picture from chart review Objective Labs 12/16/24 05:00 12/16/24 05:00 Labs: Laboratory Results - last 24 hr 12/16/24 05:00 WBC 10.7 H RBC 3.95 L Hgb 11.9 L Hct 33.7 L MCV 85 MCH 30.1 MCHC 35.3 RDW Std Deviation 46.2 H Plt Count 144 Neut % (Auto) 72 Lymph % (Auto) 19 [place] % (Auto) 4 Eos % (Auto) 0 Baso % (Auto) 0 Neut # (Auto) 7.8 H Lymph # (Auto) 2.0 [place] # (Auto) 0.4 Eos # (Auto) 0.0 Baso # (Auto) 0.0 Immature Gran # (Auto) 0.48 H Absolute Nucleated RBC 0.00 Immature Gran % 5 H Nucleated RBC % 0 Sodium 134 L Potassium 4.5 D Chloride 99 Carbon Dioxide 28.9 Anion Gap 6 L BUN 12 Creatinine 0.6 Estim Creat Clear Calc 120.0 eGFR > 60 BUN/Creatinine Ratio 20 Glucose 81 Calculated Osmolality 266 L Calcium 8.3 Phosphorus 3.4 Magnesium 1.8 ABG Interpretation ABG results: 12/09/24 11:24 ABG pH 7.44 ABG pCO2 29 L ABG pO2 108 ABG HCO3 20 ABG O2 Saturation 99 H ABG Base Excess -3 Quality Measures Quality Measures sepsis (White count 20.6, lactic 2.3, CRP 3.5, procalcitonin 0.07.) Current suspected stage: ruled out Possible source: skin/soft tissue Blood cultures ordered: yes Antibiotic ordered: Yes Advance care planning discussed with:: patient Assessment & Plan Assessment Current Active Medications: Generic Name Dose Route Start Last Admin Trade Name Freq PRN Reason Stop Dose Admin Acetaminophen 650 mg 12/08/24 00:24 Acetaminophen 325 Mg Tablet PO 01/07/25 00:23 Q6H PRN Fever >100.4 Acetaminophen 650 mg 12/08/24 00:24 12/15/24 19:23 Acetaminophen 325 Mg Tablet PO 01/07/25 00:23 650 mg Q6H PRN Administration PAIN SCALE 1-3 (mild Atenolol 25 mg 12/11/24 12:15 12/16/24 08:43 Atenolol 25 Mg Tablet PO 01/10/25 12:14 25 mg QDAY IZABEL Administration Atorvastatin Calcium 80 mg 12/10/24 21:00 12/15/24 20:35 Atorvastatin Calcium 20 Mg Tablet PO 01/09/25 20:59 80 mg HS IZABEL Administration Dexamethasone 2 mg 12/17/24 09:00 Dexamethasone 1 Mg Tablet PO 12/18/24 09:00 QDAY IZABEL Doxycycline Hyclate 100 mg/ 100 mls @ 100 mls/hr 12/12/24 14:15 12/16/24 08:44 Sodium Chloride IV 12/19/24 14:14 100 mls/hr BID IZABEL Administration Metoprolol Tartrate 5 mg 12/13/24 17:01 12/13/24 17:13 Metoprolol Tartrate Inj 1 Mg/Ml Amp 5 Ml IVP 5 mg Q5MIN PRN Administration TACHYCARDIA Protocol Ondansetron HCl 4 mg 12/08/24 00:24 Ondansetron Inj 2 Mg/Ml Inj 2 Ml IVP 01/07/25 00:23 Q6H PRN NAUSEA OR VOMITING Protocol Potassium Phos/Sodium Phos 1 packet 12/14/24 09:00 12/16/24 08:43 N[facility] Mbdb 1 Packet (1.5 Gm) PO 01/13/25 08:59 1 packet BID IZABEL Administration Plan A 69-year-old male with significant past medical history of hypertension, hyperlipidemia, CAD status post 2 stents in 2003, recent ICH in 09/2024 currently residing in nursing facility was brought to the hospital with chief complaints of worsening of his ulcer and swelling on his buttocks since 1 week and cardiology is consulted for paroxysmal atrial fibrillation and Acute pulmonary thromboembolism # Acute pulmonary thromboembolism - s/p IVC filter placement # Acute left lower extremity DVT in the setting of immobilization - Venous Doppler done on 12/14/2024 showed acute DVT in left lower extremity - CT angio chest showed multiple bilateral pulmonary emboli - Echocardiogram showed Normal LV. Estimated EF 55-60%. RV Normal.Trace MR, PI. No Pericardial Effusion. - Cardiology is consulted in view of thromboembolism - Patient cannot be started on anticoagulation in view of recent hemorrhagic stroke 1 month ago - Could not undergo mechanical thrombectomy as it looks like submassive pulmonary thromboembolism and also patient cannot receive anticoagulation which should be given during the mechanical thrombectomy - Echocardiogram done did not show any RV strain Plan - As patient cannot undergo anticoagulation, recommended to place IVC filter IR guided as of now - underwent IVC filter placement on 12/15/2024 and patient tolerated the procedure well - Explained that patient might need anticoagulation after 2 months and recommend to follow-up in outpatient basis in the clinic # Paroxysmal atrial fibrillation ---> reverted to normal sinus rhythm - Patient is admitted to the hospital for gluteal cellulitis and abscess - Patient was supposed to go to surgery on 12/09/2024, but developed tachycardia with heart rate around 150 and mild altered sensorium before going to the surgery - Telemetry strips showed atrial fibrillation with rapid ventricular rate - Patient received 3.5 L of fluid in total, 1 diltiazem IV push and 1 dose of digoxin 0.25 mg - Patient reverted to normal sinus rhythm after fluid resuscitation and medications - Cardiology is consulted as patient had previous history of CAD and tachyarrhythmia - [id number] is 5, has bled score is 4 Plan - Recommended to continue telemetry monitoring - [id number] is high, no need of anticoagulation as of now as the paroxysmal A-fib seems to be occurring in the setting of ongoing abscess. - Keep magnesium greater than 2 and potassium greater than 4 # History of CAD s/p stenting - Patient had extensive family history of CAD in his family - Patient underwent 2 stents placement in 2003 Plan - Recommend to continue aspirin and statin # History of hypertension - Patient's blood pressure is within normal limits during the hospital stay without any medications Plan - Recommended to continue to monitor blood pressures and start medications as needed Patient plan of care was discussed with Groundskeeper Porter Dr. Gilbert Wang, PGY2
--- NOTE | 2024-12-16 17:03 | ESDS_ITS ---
<Statement entered by Radha Zacarias DO - 12/17/24 07:53> I, Radha Zacarias DO, attest that I was physically present for the buitrago portions of the service and evaluated the patient with the resident and I reviewed and discussed the case with the resident and agree with the resident's findings and plans of care as documented above <Statement entered by Diaz Arredondo MD - 12/16/24 18:10> Patient seen and examined at bedside, no acute overnight events. I discussed and supervised with the nurse intern physician who took care of this patient. I personally saw and examined the patient. I agree with most of the assessment and plan. Plan of care discussed with attending Dr. Zacarias. Diaz Arredondo MD PGY-2 Planned Discharge Date 12/16/24 DS: Providers Provider Date of admission: 12/09/24 14:31 Primary care physician: Physician No Primary/Family Admitting Provider: Familia Kam MD Attending Provider on Admission: Radha Zacarias DO Consults: 12/08/24 00:33 Consult to General Surgery Routine Comment: Consulting Provider: Zainab Bardales 12/08/24 00:34 Referral Wound Care Routine Comment: 12/09/24 12:57 Consult to Neurology / Tele-Neurology Urgent Comment: Consulting Provider: Juaquin Puga 12/09/24 14:37 Consult to Cardiology Stat Comment: Consulting Provider: Suad Hunt 12/09/24 14:59 Referral Speech Therapy Routine Comment: 12/13/24 18:14 Referral Physical Therapy Routine Comment: Physician Instructions: Attending Provider on DC: Dr. Zacarias Discharging Provider: Keisha Zambrano, DS: Diagnosis Problem List Completed Was Problem List Reviewed/Reconciled?: Yes Hospital Course Hospital Course Hospital course: Mr. Akhtar is a 69 yo gentleman with a history of hypertension, hyperlipidemia, CAD s/p 2 stents, and recent intracranial hemorrhage on 10/01/2024, admitted for management of right buttock cellulitis, in the ED patient received vancomycin and Zosyn x 1, s/p I&D with gen surg, with wound vac per gen surg (requiring changes MWF). Pt was initially treated with Zosyn and then transitioned to doxy 100 mg BID. For his Hx or intracranial hemorrage, pt was started on a steroid taper (15 mg Decadron 3 days , then 8 mg Decadron for 3 days, followed by 4 mg daily x3 days and 2 mg daily for 2 days and then stop). While inpatient pt was diagnosed with new afib with rvr, ECHO (nl LV, nl EF), Cardiology consulted, recommended continuing home atenalol 25 mg bid. Left lower extremity was noted to be mildly edematous compared to RLE, on DVT US revealed extensive DVT of the left extremity CT a chest demonstrated bilateral pulmonary emboli given patient has history of recent intracranial hemorrhage and on steroid taper anticoagulation was avoided per neurology recommendations, cardiology consulted for this patient and found patient ineligible for thrombectomy. Patient underwent IVC filter placement with interventional radiology patient remained hemodynamically stable. PT evaluated patient while in hospital and recommended SNF for continued rehabilitation #Left LE DVT #BL pulm art emboli #Right buttock cellulitis, s/p I&D #Leukocytosis- resolved #Lactic acidosis, resolved #History of R frontal lobe intracranial infarct/bleed with residual L sided deficits, September 2024 #Hypotension, resolved #New Onset A-fib RVR, currently rate controlled #Acute encephalopathy likely multifactorial, resolved #Normocytic Anemia #Chronic Thrombocytopenia #NSTEMI Type II - demand ischemia #Hx of hypertension #Hx of CAD s/p stents #Hx of ICH Discharge plan 1) wound care: Right buttocks abscess Wound Vac: irrigate with NS, pat dry, fill with black foam. Skin prep to wound edges. Bridge to lateral thigh. Continuous suction at 125mmgh continuous suction. Change M/W/F. 2) Follow up with Dr. Bardales as needed 3) pt will need follow up for removal of IVC filter within 6 months Your DEXAMTHASONE has been changed: -Dexamethasone taper: 2mg daily for 2 days (12/17-12/18), then stop. Please take all other home meds as previously prescribed Please follow up with your primary doctor within 7-10 days Return to ED if you develop new or worsening symptoms Case discussed with my attending Dr. Rell Zambrano MD PGY-1 Status at Discharge Cognitive/behavioral status at discharge: fair Time Spent with Patient Time attestation: Total time spent providing and/or coordinating discharge services: Time spent: Greater than 30 minutes Exam Vital Signs Temp Pulse Resp BP Pulse Ox O2 Del Method O2 Flow Rate 97.0 F 80 16 92/62 94 L Room Air 2 12/16/24 16:00 12/16/24 16:00 12/16/24 16:00 12/16/24 16:00 12/16/24 16:00 12/16/24 16:00 12/16/24 08:00 Narrative Exam General: A/O x3, no acute distress Lungs: Clear SHIVA to auscultation and percussion, No accessory muscle use. Cardio: Normal S1/S2, regular rhythm, no murmurs, no JVD. Abdomen: Soft, non-tender, no palpable masses, no guarding or rebound. Extremities: Symmetrical, no significant deformities, Skin: No rashes, no lesions, right gluteal cleft wound, s/p debridement, wound vac in place Neuro: L sided weakness compared to the R side, No facial asymmetry,able to follow commands Discharge Plan Plan Patient Disposition: Xfer Skilled Nsg Fac (SNF) Patient condition on transfer: Stable Care Plan Goals: 1) wound care: Right buttocks abscess Wound Vac: irrigate with NS, pat dry, fill with black foam. Skin prep to wound edges. Bridge to lateral thigh. Continuous suction at 125mmgh continuous suction. Change M/W/F. 2) Follow up with Dr. Bardales as needed Your DEXAMTHASONE has been changed: -Dexamethasone taper: 2mg daily for 2 days (12/17-12/18), then stop. Please take all other home meds as previously prescribed Please follow up with your primary doctor within 7-10 days Return to ED if you develop new or worsening symptoms Prescriptions/Referrals Prescriptions/Med Rec: New dexamethasone 2 mg tablet 2 mg PO QDAY Qty: 2 0RF Continued atorvastatin 40 mg tablet 40 mg PO DAILY atenolol 25 mg tablet 25 mg PO Q24H hydralazine 10 mg tablet 10 mg PO .every 6 magnesium aspart,citrate,oxide 400 mg magnesium capsule 400 mg PO DAILY magnesium hydroxide [Milk of Magnesia] 400 mg/5 mL suspension 30 ml PO PRN PRN (Reason: constipation) emtricitabine-tenofovir (TDF) [Truvada] 200-300 mg tablet 1 tab PO Q24H melatonin 3 mg tablet 3 mg PO HS diphenhydramine-acetaminophen [Tylenol PM Extra Strength] 25-500 mg tablet 1 tab PO HS PRN (Reason: sleep) calcium carbonate [Antacid (calcium carbonate)] 200 mg calcium (500 mg) tablet,chewable 200 mg PO QDAY sennosides [senna] 8.6 mg tablet 8.6 mg PO BID acetaminophen [Aminofen] 325 mg tablet 650 mg PO Q6H PRN (Reason: pain) ondansetron 4 mg tablet,disintegrating 4 mg PO QDAY bisacodyl [Dulcolax (bisacodyl)] 10 mg suppository 10 mg MO QDAY PRN (Reason: constipation) Fleet Enema Extra 19-7 gram/197 mL enema 118 ml MO QDAY PRN (Reason: constipation) acetaminophen [Acetaminophen Extra Strength] 500 mg tablet 500 mg PO Q8HR PRN (Reason: pain) lidocaine 5 % adhesive patch,medicated See Rx Instructions .ROUTE .COMPLEX Rx Instructions: leave on most painful area for up to 12 hrs calcium carbonate [Calcium 500] 500 mg calcium (1,250 mg) tablet,chewable 500 mg PO QDAY calcium carbonate 500 mg calcium (1,250 mg) tablet,chewable 500 mg PO QID ipratropium-albuterol 0.5 mg-3 mg(2.5 mg base)/3 mL solution for nebulization 3 ml inhalation Q4H PRN (Reason: shortness of breath) Discontinued dexamethasone 4 mg tablet 4 mg PO BID Patient Comments: TAKE 1 TABLET BY MOUTH TWICE A DAY Referrals: No Primary/Family,Physician [Primary Care Provider] - Patient/Caregiver Discharge Instructions Print Language: Upper Sorbian Stand Alone Forms: Meagan Award Info., Patient Portal Info Letter Discharge Order Discharge Orders: Discharge (Routine); Ordered 12/16/24 Ordered By: Mckay Espinosa Quality Discharge Quality Measures VTE prophylaxis (scd)
== END 2024-12-16 19:08 | disposition skilled nursing facility (03) | DRG 570 ==
LOC: SERX 16:50 → SERHOLD 12-08 00:59 → S3SX 12-08 02:24 → S2NX 12-09 08:09 → S3SX 12-11 18:25
PROVIDERS: Physician Assistant; Student in an Organized Health Care Education/Training Program; Surgery; Admitting Provider Internal Medicine; Emergency Provider Emergency Medicine; Visit Provider Internal Medicine
PROC: 0J990ZX Drainage of Buttock Subcutaneous Tissue and Fascia, Open Approach, Diagnostic (ICD-10-PCS; principal; 2024-12-10 10:15)
DX: L02.31 Cutaneous abscess of buttock (principal); I26.99 Other pulmonary embolism without acute cor pulmonale; J18.9 Pneumonia, unspecified organism; E87.1 Hypo-osmolality and hyponatremia; G93.40 Encephalopathy, unspecified; I69.354 Hemiplegia and hemiparesis following cerebral infarction affecting left non-dominant side; E87.20 Acidosis, unspecified; I82.402 Acute embolism and thrombosis of unspecified deep veins of left lower extremity; I96 Gangrene, not elsewhere classified; L03.317 Cellulitis of buttock; I10 Essential (primary) hypertension; E78.5 Hyperlipidemia, unspecified; I25.10 Atherosclerotic heart disease of native coronary artery without angina pectoris; Z95.5 Presence of coronary angioplasty implant and graft; I48.91 Unspecified atrial fibrillation; I48.0 Paroxysmal atrial fibrillation; I95.9 Hypotension, unspecified; D64.9 Anemia, unspecified; N43.3 Hydrocele, unspecified; D69.6 Thrombocytopenia, unspecified; M21.372 Foot drop, left foot; Z79.899 Other long term (current) drug therapy; Z95.828 Presence of other vascular implants and grafts
CPT/HCPCS: 36415; 36600; 70450; 70553; 71045; 71275; 74177; 80048; 80053; 80061; 80202; 82803; 83036; 83605; 83735; 83880; 84100; 84145; 84484; 85025; 85048; 85610; 85652; 85730; 86140; 86361; 86703; 87040; 87077; 87081; 87186; 92610; 93005; 93306; 93971; 94762; 96365; 97162; 99285; A4217; A4649; A9579; C1769; C1880; C1894; G0378; J1100; J1720; J2250; J2371; J2405; J2543; J2704; J3010; J3370; J3372; J3475; J3490; J7030; J7050; J7120; J7999; J8540; Q9967; A9270

== ENCOUNTER 2025-01-17 11:32 | Emergency (ER) | payer MEDICARE, SELFPAY ==
[2025-01-17 11:38] VITALS: PULSE 78; RESP 16; O2SAT 95; BMI 27.4
[2025-01-17 11:44] VITALS: BP 106/70; PULSE 65; RESP 19; TEMP 36.7; O2SAT 95
--- NOTE | 2025-01-17 11:50 | EKG_ITS ---
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
--- NOTE | 2025-01-17 11:55 | XR_ITS ---
Examination: CT brain head without contrast. 2-D sagittal coronal reconstructions Date and time of exam:January 17, 2025, 1222 hours Comparison December 09, 2024 INDICATIONS: Seizure this morning, altered mental status December 09, 2024, larger acute hemorrhage in the right frontal lobe on CT brain scan October 01, 2024 CTDI: vol (mGy):49 DLP: (mGycm):1082 Technique: Multiple CT axial sections of the brain have been obtained, 5 mm slice thickness. Contrast has not been administered. 2-D sagittal, coronal reconstructions have been obtained Low dose protocols were performed. One or more of the following dose reduction techniques were used; automated exposure control, adjustment of the mA and/or KV according to patient size, use of iterative reconstruction technique. Findings: Again noted large area of low density in the right frontal lobe with masslike effect on the anterior right lateral ventricle Stable ventricular enlargement No interval acute hemorrhage or mass effect Please see the brain MRI report December 09, 2024 indicating large area of restricted diffusion in the right frontal lobe with enhancement in this area on the postcontrast images Posterior craniotomy defects again noted Extensive sphenoid sinusitis IMPRESSION: Large low density area in the right frontal lobe at the site of prior extensive hemorrhage on CT brain scan October 01, 2024 This area showed enhancement on the brain MRI December 09, 2024 Recommend repeat brain MRI follow up pre and postcontrast to exclude enhancing right frontal brain tumor
--- NOTE | 2025-01-17 11:58 | XR_ITS ---
Examination: AP chest single view TECHNIQUE: AP semiupright portable chest single view Date and time: January 17, 2025, 1211 hours Comparison December 13, 2024 INDICATIONS: Seizure activity today FINDINGS: Subtle opacity in the right upper lobe Extensive opacity left base and lingular segment Mild prominence left ventricle Prominent osteopenia IMPRESSION: Findings most consistent with bilateral pneumonia, consider aspiration pneumonia
--- NOTE | 2025-01-17 12:04 | PD.EDSEIZ ---
ED Seizures RME/HPI General Chief Complaint: Seizure Stated Complaint: seizure Time Seen by Provider: 01/17/25 11:41 Arrival date/time: 01/17/25 11:32 This is a 69-year-old male that comes into the emergency room with complaints of possible seizure. Patient has a history of high blood pressure, hyperlipidemia, coronary artery disease status post 2 stents, history of left lower extremity DVT, pulmonary embolism, A-fib. 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 Patient also recently had a abscess/cellulitis to his right buttock area and currently has a wound VAC in place. Patient currently living in [facility]. Patient reports that they were transferring him from the bed to a wheelchair and he had a sudden onset of weakness. Patient states he remembers the entire episode. I asked patient if he was shaking or if he felt like he passed out and he says that he does not recall shaking or having a syncopal episode at that time. Patient was on seizure medications previously because of intracranial bleed but has not been on seizure medication for the past 2 weeks according to patient. Patient has no complaints at this time. Per EMS that brought him, they stated patient was not postictal he was alert and oriented upon their arrival. Patient does have left-sided deficits but it is not new per patient. Patient alert and oriented on assessment. Related Data Home Medications ?Medication ?Instructions ?Recorded ?Confirmed acetaminophen 325 mg tablet 650 mg PO Q6H PRN pain 12/08/24 12/08/24 (Aminofen) acetaminophen 500 mg tablet 500 mg PO Q8HR PRN pain 12/08/24 12/08/24 (Acetaminophen Extra Strength) atenolol 25 mg tablet 25 mg PO Q24H 12/08/24 12/08/24 atorvastatin 40 mg tablet 40 mg PO DAILY 12/08/24 12/08/24 bisacodyl 10 mg rectal suppository 10 mg NC QDAY PRN constipation 12/08/24 12/08/24 (Dulcolax (bisacodyl)) calcium carbonate 500 mg PO QID 12/08/24 12/08/24 calcium carbonate (Antacid 200 mg PO QDAY 12/08/24 12/08/24 (calcium carbonate)) calcium carbonate (Calcium 500) 500 mg PO QDAY 12/08/24 12/08/24 diphenhydramine 25 1 tab PO HS PRN sleep 12/08/24 12/08/24 mg-acetaminophen 500 mg tablet (Tylenol PM Extra Strength) emtricitabine 200 mg-tenofovir 1 tab PO Q24H 12/08/24 12/08/24 disoproxil fumarate 300 mg tablet (Truvada) hydralazine 10 mg tablet 10 mg PO .every 6 12/08/24 12/08/24 ipratropium 0.5 mg-albuterol 3 mg 3 ml inhalation Q4H PRN shortness 12/08/24 12/08/24 (2.5 mg base)/3 mL nebulization of breath soln lidocaine 5 % topical patch See Rx Instructions topical 12/08/24 12/08/24 .COMPLEX magnesium aspart,citrate,oxide 400 mg PO DAILY 12/08/24 12/08/24 magnesium hydroxide 400 mg/5 mL 30 ml PO PRN PRN constipation 12/08/24 12/08/24 oral suspension (Milk of Magnesia) melatonin 3 mg tablet 3 mg PO HS 12/08/24 12/08/24 ondansetron 4 mg disintegrating 4 mg PO QDAY 12/08/24 12/08/24 tablet sennosides 8.6 mg tablet (senna) 8.6 mg PO BID 12/08/24 12/08/24 sodium phosphates 19 gram-7 118 ml NC QDAY PRN constipation 12/08/24 12/08/24 gram/197 mL enema (Fleet Enema Extra) Previous Rx's ?Medication ?Instructions ?Recorded dexamethasone 2 mg tablet 2 mg PO QDAY #2 tabs 12/16/24 levetiracetam 750 mg tablet 750 mg PO BID 30 days #60 tabs 01/17/25 (Keppra) Allergies Allergy/AdvReac Type Severity Reaction Status Date / Time apple Allergy Intermediate Hives Verified 01/17/25 11:49 bergman Allergy Intermediate Hives Verified 01/17/25 11:49 melon Allergy Intermediate Hives Verified 01/17/25 11:49 peach Allergy Intermediate Hives Verified 01/17/25 11:49 coconut Allergy Verified 01/17/25 11:49 nectarine Allergy Hives Verified 01/17/25 11:49 plum Allergy Verified 01/17/25 11:49 Review of Systems Review of Systems Systems Reviewed: All systems reviewed, normal except as documented Past Medical History Past Medical History CARDIAC: Positive Cardiac Disorders, Myocardial Infarction and Hypertension; Negative Congestive Heart Failure RESPIRATORY: Negative Chronic Obstructive Pulmonary Disease (COPD) GENITOURINARY: Negative Renal Disease ENDOCRINE: Negative Diabetes Mellitus Type 1 or Diabetes Mellitus Type 2 OTHER HISTORY: Negative Autoimmune Disease Family History FAMILY HISTORY: Negative Family Psychiatric Problems, Family Respiratory Disorders, Family Cardiac Disorders, Family Gastrointestinal Problems, Family Cancer, Family Surgery or Family Anesthesia Reaction Social History SMOKING STATUS: Never smoker ED Exam Narrative Physical exam: VITAL SIGNS: Reviewed. GENERAL APPEARANCE: Alert and interactive, follows commands, no acute distress, HEAD AND FACE: Non-traumatic. ENT: PERRL, conjuctiva pink and clear, eyelid no trauma, Mucous membrane moist. NECK: Supple, nontender, no nuchal rigidity. CHEST: No tenderness, no crepitus, no paradoxical movement, no retractions. LUNGS: Clear, well ventilated, symmetric, no rales, no wheezing, no rhonchi, no stridor, good breath sounds bilaterally. HEART: Regular rate, regular rhythm, no murmur, no gallops. ABDOMEN: Soft, nondistended, no guarding, nontender, no rebound, no masses, NEUROLOGICAL: Gross motor function intact sensory function intact, Appropriate for age. MUSCULOSKELETAL: low back nontender, full range of motion. EXTREMITIES: No redness no swelling no skin breakdown on bilateral foot and leg. Distal neurovascular status intact bilateral foot, patient not able to lift his left leg off the bed left upper extremity 4/5 left lower extremity 3/5. SKIN: Color pink, dry, wound VAC to right buttock next to sacral area Course Quality Measures none Orders Category Date Time Status EKG (ED ONLY) *Do not use* NOW Care 01/17/25 11:50 Completed In and Out Catheter X1 Care 01/17/25 13:31 Completed Consult to Neurology / Tele-Neurology Stat Cons 01/17/25 13:[address] head/brain wo con Stat Exams 01/17/25 11:55 Completed EKG (ED Only) Stat Exams 01/17/25 11:50 Draft XR chest 1V Stat Exams 01/17/25 11:58 Completed BNP [B-Type Natriuretic Peptide] Stat Lab 01/17/25 12:07 Completed CBC Stat Lab 01/17/25 12:07 Completed Comprehensive Metabolic Panel Stat Lab 01/17/25 12:07 Completed Lactate (Lactic Acid) Stat Lab 01/17/25 12:07 Completed Troponin I Stat Lab 01/17/25 12:07 Completed Urinalysis, C/S if Indicated Stat Lab 01/17/25 13:43 Completed Azithromycin Po [Zithromax PO] Med 01/17/25 13:58 Discontinued 500 mg PO X1 ONE cefTRIAXone/D5w 1gm IV premix [Rocephin/D5w 1gm IV Med 01/17/25 14:00 Discontinued premix] 1 gm in 50 ml IV X1 levETIRAcetam INJ [Keppra Inj] Med 01/17/25 14:19 Discontinued 1,000 mg IVP X1 ONE Vital Signs Vital signs: Vital Signs Temperature 98.1 F 01/17/25 11:44 Pulse Rate 65 01/17/25 11:44 Respiratory Rate 19 01/17/25 11:44 Blood Pressure 106/70 01/17/25 11:44 Pulse Oximetry (%) 95 01/17/25 11:44 Oxygen Delivery Method Room Air 01/17/25 11:44 PROCEDURES: EKG Interpretation #1: Date of EK01/17/25 Time of EK:55 Rate: 61 Interpretation: Interpreted by me (sinus rhythm ) EKG Impression: No ectopy, Normal QRS and Normal intervals Seizure MDM Narrative MDM Narrative:: labs reviewed. cbc unremarkable. Vital signs stable. BMP unremarkable lactic acid was 1.3 urinalysis unremarkable chest x-ray shows pneumonia. I spoke to patient's daughter at the bedside who states that patient was diagnosed with COVID-19 a couple days ago. Patient did not let me know of this. Patient was already on azithromycin. ct head shows: IMPRESSION: Large low density area in the right frontal lobe at the site of prior extensive hemorrhage on CT brain scan October 01, 2024 This area showed enhancement on the brain MRI December 09, 2024 Recommend repeat brain MRI follow up pre and postcontrast to exclude enhancing right frontal brain tumor Because of abnormal CT of head and possible seizure I consulted teleneurology. I wanted to know specifically if patient needs to be admitted and have an MRI or patient be discharged home on seizure medications. I spoke to he did not feel patient needs to be admitted to the hospital he can follow-up with outpatient neurology. MRI of the brain with and without contrast to rule out an underlying mass this can be done as an outpatient per teleneurology, There is no need for admission at this time patient is fully returned to baseline has had no further seizure activity. Patient was given a dose of Keppra 1 g IV now and will be sent home with a prescription of 750 twice daily. Because of pneumonia on x-ray patient was given a dose of Rocephin and was already on his Zithromax as an outpatient can continue this as an outpatient. Dragon dictation: Although this document has been carefully reviewed, there may still be some phonetic and other typographical errors. These errors are purely grammatical due to imperfections in the software program and should not be construed in any way to compromise the substance of the patient's medical care during this visit. Patient data External records reviewed:: [facility] previous records Clinical information provided by:: patient Social determinants that could affect healthcare access:: none Patient has the following chronic illnesses:: see note How is presenting disease/condition affected by chronic disease/condition?: no chronic disease Evaluation data The following diagnostics were reviewed and interpreted by me:: lab results, radiology exam(s) and EKG tracing(s) Lab and/or radiology exams considered but not ordered:: none Interpretation Summary: see note Medications / Prescriptions Medications or Prescriptions considered but not ordered:: none Medication administrations:: Medication Administration History Discontinued Medications Azithromycin (Azithromycin 250 Mg Tablet) 500 mg PO X1 ONE Stop: 01/17/25 13:59 Last Admin: 01/17/25 14:34 Dose: 500 mg Documented By: JULIETTE Ceftriaxone Sodium/Dextrose (Rocephin/D5w 1gm Iv Premix) 1 gm in 50 mls @ 100 mls/hr IV X1 ONE Stop: 01/17/25 14:29 Last Infusion: 01/17/25 15:12 Dose: Infused Documented By: Admin: 01/17/25 14:44 Dose: 100 mls/hr Documented By: JULIETTE Levetiracetam (Levetiracetam Inj 100 Mg/Ml Vial 5ml) 1,000 mg IVP X1 ONE Stop: 01/17/25 14:20 Last Admin: 01/17/25 14:35 Dose: 1,000 mg Documented By: JULIETTE see scott Consultations Consultation(s) initiated? (list below): Yes Consultation #1 (Physician, Specialty, Details): see note Diagnosis Seizure Differential Diagnosis: focal seizure, generalized seizure and other (stroke, covid, pneumonia ) Most likely diagnosis given after review of the tests above:: pneumonia Admission Indicated Admission indicated?: not indicated Admission Request Was there a request for admission?: No Disposition Plan Disposition Plan: Discharge Discharge Attestation Discharge Attestation: The patient and all family members were given an opportunity to ask questions and understood the discharge instructions. Discharge instructions specifically effects, indications for sooner follow up or return to the emergency department, and the expected course of current diagnosis. Patient condition: Stable Discharge Plan Plan Patient Disposition: HOME (Self Care) Patient condition on transfer: Stable Prescriptions/Referrals Prescriptions/Med Rec: New levetiracetam [Keppra] 750 mg tablet 750 mg PO BID 30 Days Qty: 60 0RF No Action atorvastatin 40 mg tablet 40 mg PO DAILY atenolol 25 mg tablet 25 mg PO Q24H hydralazine 10 mg tablet 10 mg PO .every 6 magnesium aspart,citrate,oxide 400 mg magnesium capsule 400 mg PO DAILY magnesium hydroxide [Milk of Magnesia] 400 mg/5 mL suspension 30 ml PO PRN PRN (Reason: constipation) emtricitabine-tenofovir (TDF) [Truvada] 200-300 mg tablet 1 tab PO Q24H melatonin 3 mg tablet 3 mg PO HS diphenhydramine-acetaminophen [Tylenol PM Extra Strength] 25-500 mg tablet 1 tab PO HS PRN (Reason: sleep) calcium carbonate [Antacid (calcium carbonate)] 200 mg calcium (500 mg) tablet,chewable 200 mg PO QDAY sennosides [senna] 8.6 mg tablet 8.6 mg PO BID acetaminophen [Aminofen] 325 mg tablet 650 mg PO Q6H PRN (Reason: pain) ondansetron 4 mg tablet,disintegrating 4 mg PO QDAY bisacodyl [Dulcolax (bisacodyl)] 10 mg suppository 10 mg NC QDAY PRN (Reason: constipation) Fleet Enema Extra 19-7 gram/197 mL enema 118 ml NC QDAY PRN (Reason: constipation) acetaminophen [Acetaminophen Extra Strength] 500 mg tablet 500 mg PO Q8HR PRN (Reason: pain) lidocaine 5 % adhesive patch,medicated See Rx Instructions .ROUTE .COMPLEX Rx Instructions: leave on most painful area for up to 12 hrs calcium carbonate [Calcium 500] 500 mg calcium (1,250 mg) tablet,chewable 500 mg PO QDAY calcium carbonate 500 mg calcium (1,250 mg) tablet,chewable 500 mg PO QID ipratropium-albuterol 0.5 mg-3 mg(2.5 mg base)/3 mL solution for nebulization 3 ml inhalation Q4H PRN (Reason: shortness of breath) dexamethasone 2 mg tablet 2 mg PO QDAY Qty: 2 0RF Referrals: No Primary/Family,Physician [Primary Care Provider] - In 1 week Problem List Clinical Impression: Pneumonia, Seizure Patient/Caregiver Discharge Instructions Discharge Activity: activity as tolerated Education Materials: ED Pneumonia (Adult), ED Seizure, Recurrent (Adult) Additional Instructions: Patient was loaded with Keppra 1000 mg. Will send patient home with prescription of 750 twice daily. Patient will need an outpatient MRI for follow-up. PLease see CT results. Follow up with primary provider in 1-2 days. Come back to ED if symptoms change or worsen Print Language: Turkish Stand Alone Forms: Meagan Award Info., Patient Portal Info Letter PA/VAMP CUT OUT WORKER Supervising Physician PA/VAMP CUT OUT WORKER Supervising Physician: jaqui
[2025-01-17 12:35] LABS: Lactate (Lactic Acid) 1.3 mMol/L (0.4-2.0)
[2025-01-17 12:54] LABS: Alanine Aminotransferase 14 U/L (10-49); Albumin, Serum 3.2 gm/dL (3.4-4.8); Albumin/Globulin Ratio 1.3 (1.2-2.2); Alkaline Phosphatase 84 U/L (46-116); Anion Gap 8 (7-16); Aspartate Amino Transferase 24 U/L (0-34); BUN/Creatinine Ratio 13 Ratio (12-20); Basophils # (Auto) 0.0 Thou/mm3 (0.0-0.2); Basophils % (Auto) 0 % (0-2.5); Bilirubin,Total 0.4 mg/dL (0.3-1.2); Blood Urea Nitrogen 9 mg/dL (9-23); Calcium 8.2 mg/dL (8.3-10.6); Calcium (Corrected) 8.8 mg/dL (8.5-10.1); Carbon Dioxide 26.4 mMol/L (20.0-31.0); Chloride 104 mMol/L (98-107); Creatinine (Component) 0.7 mg/dL (0.6-1.3); Eosinophils # (Auto) 0.1 Thou/mm3 (0.0-0.5); Eosinophils % (Auto) 1 % (0-10); Estimated Creatinine Clearance 102.8 mL/min (>60); Globulin 2.4 gm/dL (2.3-3.5); Glucose 108 mg/dL (74-106); Hematocrit 40.4 % (41.0-53.0); Hemoglobin 13.5 g/dL (13.5-16.0); Immature Granulocytes Auto 0.04 Thou/mm3 (0.00-0.00); Lymphocytes # (Auto) 3.4 Thou/mm3 (1.0-4.8); Lymphocytes % (Auto) 31 % (10-50); Mean Corpuscular HGB Conc 33.4 g/dl (31.0-37.0); Mean Corpuscular Hemoglobin 30.0 pg (25.0-35.0); Mean Corpuscular Volume 90 fL (80-100); Monocytes # (Auto) 0.6 Thou/mm3 (0.0-0.8); Monocytes % (Auto) 5 % (0-12); Neutrophils # (Auto) 6.9 Thou/mm3 (1.8-7.7); Neutrophils % (Auto) 62 % (37-80); Nucleated Red Blood Cell # 0.00 Thou/mm3 (0.00-0.00); Nucleated Red Blood Cell % 0 /100 WBC (0); Osmolality,Calculated 275 (275-295); Platelet Count 228 Thou/mm3 (140-440); Potassium 4.0 mMol/L (3.4-5.1); RDW Standard Deviation 49.9 fL (35.1-43.9); Red Blood Count 4.50 Miln/mm3 (4.50-5.90); Sodium 138 mMol/L (136-145); Total Protein 5.6 gm/dL (5.7-8.2); Troponin I < 0.020 ng/mL (0.0-0.045); White Blood Count 11.1 Thou/mm3 (3.8-10.6); eGFR > 60 See Note
[2025-01-17 13:26] LABS: B-Type Natriuretic Peptide < 20 pg/mL (0-100)
--- NOTE | 2025-01-17 14:15 | PD.TNEURO ---
Tele Neuro Consultation Consultation Date 01/17/25 Most Recent Vital Signs Last Vital Signs Temp 98.1 F 01/17/25 11:44 Pulse 65 01/17/25 11:44 Resp 19 01/17/25 11:44 BP 106/70 01/17/25 11:44 Pulse Ox 95 01/17/25 11:44 O2 Del Method Room Air 01/17/25 11:44 Consultation Narrative [facility] TeleNeurology Consult Services Stat Consult Patient Name: ALEJANDRO VAZQUEZ Date of : 1955 Identification Number: Date of Service: 01/17/2025 13:44:58 Diagnosis: ? G40.89 - Other seizures Impression Seizure I would recommend starting an antiepileptic 1 g of Keppra will be given in the emergency department I would then recommend discharging the patient on 750 p.o. twice daily Outpatient follow-up with neurology Also need an MRI of the brain with and without contrast to rule out an underlying mass this can be done as an outpatient however There is no need for admission at this time patient is fully returned to baseline has had no further seizure activity Driving restrictions per state law Recommendations: Our recommendations are outlined below. Disposition : Neurology will sign off. Reconsult if Needed. Outpatient Neurology follow up in 1-3 weeks Advanced Imaging: Advanced Imaging Deferred because: Stroke not suspected with clinical presentation and exam Metrics: Dispatch Time: 01/17/2025 13:44:58 Callback Response Time: 01/17/2025 13:45:13 Primary Provider Notified of Diagnostic Impression and Management Plan on: 01/17/2025 14:12:39 CT HEAD: I personally reviewed all the CT images that were available to me and it showed: No acute abnormality Prior area of encephalomalacia corresponding to the prior right frontal hemorrhage Chief Complaint: seizure History of Present Illness: Patient is a 69 year old Male. STAT consult confirmed by -ES 69 M Presents with CVA 3 months, while transferring had full body tremors went unresponsive for a minutes, does remember tremors back to baseline History: CVA LKWT: Imaging: CTH - completed Would like evaluation and recommendations Patient has a history of a prior right intraparenchymal hemorrhage in 2024 actually currently he is in a rehab facility The noncontrast CT of the head on the date which was 10/01/2024 of admission for the hemorrhage reveals a very large acute subdural hematoma there is also noted to be a large right frontal hematoma extensive intraventricular hemorrhage and subarachnoid component as well MRI was then performed on admission which did reveal a large area of restricted diffusion consistent with infarct in the right frontal lobe and subacute hemorrhage interestingly the MRI was done with contrast which actually revealed some enhancement and they noted that there may be an underlying mass Patient did have a chest CTA on admission as well which was unremarkable for any mass but it did reveal multiple bilateral pulmonary emboli He had an IVC filter placed as anticoagulation was not able to be started Today he reportedly had an episode of shaking of his upper body confusion no urinary incontinence or fecal incontinence or tongue biting he then rapidly returned to baseline Noncontrast CT of the head was performed which again reveals a very large area in the right frontal lobe from the prior hemorrhage there is some areas of encephalomalacia but interestingly again they note that an MRI needs to be performed with contrast to rule out an underlying mass Past Medical History: ? Hypertension ? Hyperlipidemia ? Stroke ? Seizures ? There is no history of Diabetes Mellitus ? There is no history of Atrial Fibrillation ? There is no history of Coronary Artery Disease ? There is no history of Covid-19 ? There is no history of Migraine Headaches ? There is no history of Dementia/MCI Medications: No Anticoagulant use No Antiplatelet use Reviewed EMR for current medications Other Medications Pertinent To Assessment Include: Truvada Allergies: Reviewed Social History: Drug Use: No Family History: There is no family history of premature cerebrovascular disease pertinent to this consultation ROS : 14 Points Review of Systems was performed and was negative except mentioned in HPI. Past Surgical History: There Is No Surgical History Contributory To Today?s Visit Examination: BP(106/70), Pulse(65), Blood Glucose(81) Neuro Exam: General: Alert,Awake, Oriented to Time, Place, Person Speech: Fluent: Language: Intact: Face: Symmetric: Facial Sensation: Intact: Visual Kramer: Intact: Extraocular Movements: Intact: Motor Exam: No Drift: Sensation: Intact: Coordination: Intact: Spoke with : Dr. Aquino This consult was conducted in real time using interactive audio and video technology. Patient was informed of the technology being used for this visit and agreed to proceed. Patient located in hospital and provider located at home/office setting. Patient is being evaluated for possible acute neurologic impairment and high probability of imminent or life - threatening deterioration.I spent total of 35 minutes providing care to this patient, including time for face to face visit via telemedicine, review of medical records, imaging studies and discussion of findings with providers, the patient and / or family. Dr Jone Cline [facility] For Inpatient follow-up with [facility] physician please call [facility] at . As we are not an outpatient service for any post hospital discharge needs please contact the hospital for assistance. If you have any questions for the [facility] physicians or need to reconsult for clinical or diagnostic changes please contact us via [facility] at . Signature : Jone Cline
[2025-01-17 14:16] LABS: Collection Type, Urine Voided; Squamous Epithelial Cell,Urine 0 /hpf (0-5)
[2025-01-17 14:27] LABS: Bacteria,Urine Rare; Bilirubin,Urine Negative (Negative); Blood,Urine Negative (Negative); Clarity,Urine Clear (Clear/Hazy); Color,Urine Lt-Yellow (Lt Yel-Yel); Culture Indicated,Urine Not Indicated; Glucose, Urine Negative (Negative); Ketones,Urine Negative (Negative); Leukocyte Esterase,Urine Negative (Negative); Nitrite,Urine Negative (Negative); PH,Urine 5.5 (5.0-7.0); Protein,Urine Negative (Neg - Trace); RBC,Urine < 1 /hpf (0-3); Specific Gravity,Urine 1.012 (1.001-1.035); Urobilinogen,Urine Negative mg/dL (0.0-1.0); WBC,Urine 2 /hpf (0-5)
[2025-01-17 14:33] VITALS: BP 107/80; PULSE 82; RESP 19; O2SAT 97
[2025-01-17] MEDS: AZITHROMYCIN 250 MG TABLET 500 MG PO (14:34)
[2025-01-17] MEDS: levETIRAcetam INJ 100 MG/ML VIAL 5ML 1000 MG IVP (14:35)
[2025-01-17] MEDS: cefTRIAXone/D5w 1gm IV premix 1 GM/50 ML BAG IV (14:44)
[2025-01-17 15:14] VITALS: BP 115/77; PULSE 65; RESP 18; TEMP 36.6; O2SAT 98
--- NOTE | 2025-01-17 15:29 | PC.CC ---
[employer] SERVICES MANAGERRadha was consulted by bedside JONN Gary for transportation for the patient back to [facility]. [facility] [employer] MANAGER, [facility] but they do not have [facility] transportation services available. [employer] MANAGER obtained an ARMINDA by Transfer JONN Crawley for [facility].
--- NOTE | 2025-01-17 15:32 | PC.NURSE ---
TELEPHONE REPORT GIVEN TO KAMILLA AT [facility].
[2025-01-17 16:07] VITALS: BP 97/69; PULSE 66; RESP 15; TEMP 36.4; O2SAT 95
[2025-01-17 17:17] VITALS: BP 108/82; PULSE 69; RESP 18; TEMP 36.4; O2SAT 96
== END 2025-01-17 17:26 | disposition home or self-care (01) ==
PROVIDERS: Nurse Practitioner Family; Emergency Provider Family Medicine
DX: J18.9 Pneumonia, unspecified organism (principal); R56.9 Unspecified convulsions; I10 Essential (primary) hypertension; I25.2 Old myocardial infarction; E78.5 Hyperlipidemia, unspecified; I25.10 Atherosclerotic heart disease of native coronary artery without angina pectoris; I48.91 Unspecified atrial fibrillation; Z86.73 Personal history of transient ischemic attack (TIA), and cerebral infarction without residual deficits; Z86.718 Personal history of other venous thrombosis and embolism; Z86.711 Personal history of pulmonary embolism; Z95.5 Presence of coronary angioplasty implant and graft; Z79.899 Other long term (current) drug therapy; Z91.018 Allergy to other foods
CPT/HCPCS: 51701; 36415; 70450; 71045; 80053; 81001; 83605; 83880; 84484; 85025; 93005; 96365; 96375; 99284; J0696; J1953; A9270

== ENCOUNTER → 2025-02-23 | Outpatient (CLI) | payer MEDICARE, SELFPAY ==
--- NOTE | 2025-02-23 12:00 | XR_ITS ---
Examination: MRI of brain without intravenous contrast. MRI brain with intravenous contrast. Date and time of exam:February 23, 2025 1244 hours INDICATIONS: History subdural hematoma, 24 mm right frontal hemorrhage ruptured into the ventricular system on CT brain scan April 02, 2025, residual left-sided body weakness Technique: Multiple axial and sagittal images of the brain to been obtained. Siemens high-resolution 1.52 Porsha short bore scanner utilized. Sagittal sections, T1 weighted images, TR 500, TE 14, are performed. Axial sections proton-density and T2-weighted images have been obtained. Inversion recovery axial images, TR 9260, TE 111, TR 2500. Diffusion weighted images, axial sections, TR 4800, TE 128, B value 1000. Axial sections, ADC map, TR 4800, TE 128. Axial and coronal images were also obtained post 17 cc gadolinium administered intravenously. Findings:: Enlargement of the sella turcica is not present. The optic chiasm and infundibular stalk are not remarkable. There is no localized enlargement of the medulla or jameson. Fourth ventricle and cerebellar tonsils appear normal in position. No subacute area of hemorrhage density is seen. Fourth ventricle is midline. Mass in the cerebellopontine angle region is not evident. 7th and 8th nerve complexes exhibit symmetry Globes are symmetrical Orbital musculature including medial lateral rectus muscles do not exhibit abnormality Increased white matter signal is prominent Effacement of the cortical sulcal markings is not identified. Mass effect upon the ventricular system is not identified. Diffusion-weighted images demonstrate large focus restricted diffusion right frontal lobe with signal deficit on the ADC map Contrast images demonstrate ringlike enhancement in the right frontal lobe lesion, 6 x 2.6 cm Impression: Ringlike enhancement in the right frontal lobe lesion, with restricted diffusion at this site on the diffusion-weighted images, differential would include hemorrhage into the brain neoplasm at this site, recommend neurology consultation and correlation with clinical findings
[2025-02-23 12:23] LABS: Blood Urea Nitrogen 10 mg/dL (9-23); Creatinine (Component) 0.8 mg/dL (0.6-1.3); eGFR > 60 See Note
== END | disposition home or self-care (01) ==
PROVIDERS: PCP Ophthalmology; Referring Provider Hospitalist; Visit Provider Hospitalist
DX: G93.9 Disorder of brain, unspecified (principal)
CPT/HCPCS: 36415; 70553; 82565; 84520; A9577